=== PATIENT | female | born 1990 | race Caucasian/White ===

== ENCOUNTER → 2020-11-09 13:33 | Outpatient (CLI) | payer BC, SELFPAY ==
[2020-11-09 14:47] LABS: NATERA MAILED SPECIMEN
== END ==
PROVIDERS: PCP Internal Medicine; Visit Provider Obstetrics & Gynecology
DX: Z31.5 Encounter for procreative genetic counseling (principal)
CPT/HCPCS: 36415

== ENCOUNTER 2020-11-09 13:59 | Outpatient (RCR) | payer BC, SELFPAY | END 2021-01-22 23:59 | LOC: IMMUN 13:59 | PROVIDERS: PCP Internal Medicine; Referring Provider Family Medicine; Visit Provider Family Medicine | DX: Z23 Encounter for immunization (principal) | CPT/HCPCS: 0001A; 0002A; 91300 ==

== ENCOUNTER 2023-05-21 11:15 | Inpatient (IN) | payer BC, SELFPAY ==
[2023-05-21] VITALS (33 sets, daily range): BP systolic 96–142; BP diastolic 52–101; PULSE 71–117; TEMP 36.3–37.6; O2SAT 98–100; BMI 30.4
[2023-05-21] MEDS: Lactated Ringers 1,000 ML 50 ML IV (12:05)
[2023-05-21 12:32] LABS: Absolute Lymphocyte Count 2.12 X10^3/uL (0.83-4.51); Absolute Neutrophil Count 7.4 X10^3/uL (2.0-7.7); Basophil# 0.06 X10^3/uL; Basophil% 0.6 % (0-1); Hematocrit 43.2 % (37-47); Hemoglobin 14.3 g/dL (12.0-15.0); Lymphocyte # 2.12 X10^3/ul (0.83-4.51); Lymphocyte % 20.6 % (19-41); Mean Corp Hgb Conc 33.1 g/dL (32-36); Mean Corpuscular Hgb 33.6 pg (27.0-32.0); Mean Corpuscular Volume 101.6 fL (81-99); Monocyte# 0.65 X10^3/uL; Monocyte% 6.3 % (0-10); NRBC Flagged by Analyzer 0 % (0-5); Neutrophil # 7.37 X10^3/uL (2.7-7.7); Neutrophil % 71.4 % (47-70); Platelet Count 156 K/mm3 (150-450); RBC Distribution Width CV 12.7 % (11.6-14.6); RBC Distribution Width SD 47.4 fl (35.1-43.9); Red Blood Count 4.25 M/mm3 (4.2-5.4); White Blood Count 10.3 K/mm3 (4.4-11.0)
[2023-05-21] MEDS: Oxytocin 15 Units/NS 250ml 15 UNITS/250 ML IV.SOLN 2 UNITS IV (13:05)
[2023-05-21 13:08] LABS: Syphilis Antibodies Non-reactive
[2023-05-21 16:37] LABS: AST(SGOT) 17 U/L (15-37); Alanine Aminotransfer ALT/SGPT 18 U/L (13-56); Creatinine, Serum 0.78 mg/dL (0.55-1.02); EST Glomerular Filtration Rate 92 mL/min (>60); Est Glom Filt Rate - Afr Amer 111 mL/min (>60); Estimated Creatinine Clearance 101.62 ml/min; Uric Acid 4.8 mg/dL (2.6-6.0)
[2023-05-21 17:01] LABS: Protein, Urine (Random) 17.5 mg/dL (<11.9); Protein:Creat Ratio 200 mg/g CRE (0-200)
--- NOTE | 2023-05-21 18:00 | HP.PCM.OB_ITS ---
HPI - General General Date of Admission: 05/21/23 Date of Service: 05/21/23 HPI Narrative SHAHRIAR OTERO, is a 33 F who presents for induction. Maternal Data Information Final ANALILIA: 05/[birth year]23 [facility] Medical History Infertility Home Medications ascorbic acid (vitamin C) 500 mg tablet (Vitamin C) 1 g PO DAILY ask provider 05/21/23 [History Last Taken 05/21/23 06:00] vit no.95-ferrous fumarate 28 mg-folic acid 800 mcg tablet () 1 tab PO DAILY 05/21/23 [History Last Taken 05/21/23 06:00] Allergy/AdvReac Type Severity Reaction Status Date / Time No Known Allergies Allergy Verified 05/21/23 12:09 Surgical History History of surgery Social History Smoking Status: Never smoker History Elective abortions Hx Para 0 Spontaneous abortions Hx # Term Pregnancies Ectopic pregnancies Hx # Pregnancies Multiple births # of living children NST FHR Rate Baby A Baseline: 145 Variability:: Moderate Accelerations:: 15 x 15 Decelerations:: None Uterine Activity:: Q2-3 minutes Vital Signs Vital Signs Vital Signs: 05/21/23 11:35 05/21/23 11:35 05/21/23 11:57 Temperature Temperature Source Pulse Rate 95 Blood Pressure 139/101 H 96/52 L BP Systolic 139 96 BP Diastolic 101 52 Pulse Ox 05/21/23 11:57 05/21/23 12:26 05/21/23 12:26 Temperature 97.6 F L Temperature Source Temporal Pulse Rate 76 Blood Pressure BP Systolic BP Diastolic Pulse Ox 05/21/23 13:43 05/21/23 13:44 05/21/23 13:44 Temperature Temperature Source Temporal Pulse Rate 104 H Blood Pressure 135/94 H BP Systolic 135 BP Diastolic 94 Pulse Ox 05/21/23 13:44 05/21/23 13:43 05/21/23 14:28 Temperature 98.9 F Temperature Source Pulse Rate Blood Pressure 129/90 H BP Systolic 129 BP Diastolic 90 Pulse Ox 99 05/21/23 14:28 05/21/23 14:29 05/21/23 14:29 Temperature 97.4 F L Temperature Source Temporal Pulse Rate 94 Blood Pressure BP Systolic BP Diastolic Pulse Ox 05/21/23 15:15 05/21/23 15:15 05/21/23 16:29 Temperature Temperature Source Pulse Rate 78 Blood Pressure 142/95 H 133/91 H BP Systolic 142 133 BP Diastolic 95 91 Pulse Ox 05/21/23 16:29 05/21/23 16:29 05/21/23 16:29 Temperature 99.6 F H Temperature Source Temporal Pulse Rate 86 Blood Pressure BP Systolic BP Diastolic Pulse Ox 05/21/23 17:39 05/21/23 17:39 05/21/23 17:39 Temperature Temperature Source Temporal Pulse Rate 78 Blood Pressure 131/84 H BP Systolic 131 BP Diastolic 84 Pulse Ox 05/21/23 17:39 Temperature 97.3 F L Temperature Source Pulse Rate Blood Pressure BP Systolic BP Diastolic Pulse Ox Weight Weight: 194 lb 9.6 oz Body Mass Index (BMI) 30.4 Physical Exam Const alert, oriented x3 and no apparent distress Chest inspection of chest normal GI soft to palpation, non-tender and non-distended Inspection: gravid external exam normal Narrative: cvx - 4/70/-2, AROM clear fluid Labs Labs Labs: Blood Type A POSITIVE Antibody Screen NEGATIVE Hct 43.2 % (37-47) Hgb 14.3 g/dL (12.0-15.0) Syphilis Total Ab Non-reactive see [facility] H&P Assessment & Plan (1) conceived through in vitro fertilization: QUALIFIERS: Trimester: third trimester Qualified Code(s): O09.813 - Supervision of resulting from assisted reproductive technology, third trimester COMMENT: @ 39 weeks (2) 39 weeks gestation of : PLAN: Plan Admit to L&D Induction - on pitocin & s/p AROM GBS negative EFW - less than 4500g, patient with adequate pelvis Pain - epidural as desired Routine care
[2023-05-21] MEDS: 0.9% Saline Lock 10 ML Syringe IV (18:20)
[2023-05-21] MEDS: LACTATED RINGERS 500 ML 999 ML IV ×2 (19:27→21:42)
[2023-05-21] MEDS: fentaNYL-bupivacaine (epidural) 100 ML BAG EPIDURAL (20:49)
[2023-05-21] MEDS: Lactated Ringers 1,000 ML 200 ML IV (21:42)
[2023-05-21] MEDS: Ondansetron 4 MG/2 ML Vial IV (22:33)
[2023-05-22] VITALS (27 sets, daily range): BP systolic 123–159; BP diastolic 63–104; PULSE 98–155; RESP 16; TEMP 36.3–37.5; O2SAT 97–100
[2023-05-22] MEDS: fentaNYL-bupivacaine (epidural) 100 ML BAG EPIDURAL (00:22)
[2023-05-22] MEDS: proCHLORPERazine 10 MG/2 ML Vial IV (01:06)
[2023-05-22] MEDS: Lactated Ringers 1,000 ML 200 ML IV (03:17)
[2023-05-22] MEDS: Oxytocin 15 Units/NS 250ml 15 UNITS/250 ML IV.SOLN 83 UNITS IV (05:59)
[2023-05-22] MEDS: miSOPROStol 200 MCG Tablet 1000 MCG RC (06:09)
--- NOTE | 2023-05-22 06:32 | EX.PCM.OBRPT ---
Maternal Data Information Final ANALILIA: 05/28/23 Gestational age: 39&1 Vaginal Delivery Maternal Presentation Maternal Presentation: Medically Indicated Induction Type of Induction: Pitocin and Amniotomy Operative Information Date of Procedure: 05/22/23 Pre-Operative Diagnosis: IVF Post-Operative Diagnosis: Same Surgery / Procedure Performed: Spontaneous Vaginal Delivery Type of Anesthesia: Epidural Estimated Blood Loss: 700ml Findings Description of Procedure: Patient prepped & draped when C/C/+2. She pushed well to deliver the head. head gently guided to allow delivery of anterior and posterior shoulders. No excess traction placed on head. Body delivered and 3VC clamped & cut in delayed fashion. Placenta delivered with gentle traction and good uterine tone obtained. Some increased bleeding noted. Uterine cavity manually explored to confirm no retained POC's. Bleeding slowed with increased pitocin rate & cytotec. Vaginal sweep x2 performed to ensure no retained sponges. Presentation: FRAN Amniotic Membrane Rupture Type: Artificial Amniotic Fluid Description: Clear Placental Delivery Description: Expressed Placenta Disposition: [facility] Specimen(s) Removed: Placenta Cord Vessel Description: 3 Vessels Cord Entanglement: Around neck x 1, loose Nuchal Cord Compression: Without compression Infant A Gender: Male (Lamberto) (1 minute): 9 (5 minute): 9 Delayed Cord Clamping: Yes Post Vaginal Delivery Medications Given After Delivery: IV Pitocin and - (Rectal cytotec) Episiotomy Description: None Laceration: 2nd degree (repaired with 3-0 vicryl & 1 stitch of chromic) Complication Complications: None
[2023-05-22] MEDS: Cefazolin 2 GM in 0.9% Normal Saline (100mL Bag) 100 ML IV (07:50)
[2023-05-22] MEDS: Ibuprofen 600 MG Tablet PO ×3 (08:30→20:37)
[2023-05-22] MEDS: 0.9% Saline Lock 10 ML Syringe IV (09:25)
[2023-05-22] MEDS: Acetaminophen 500 MG Tablet 1000 MG PO ×2 (11:09→17:30)
--- NOTE | 2023-05-22 20:59 | NURSING ---
Spoke with Dr Holbrook about pt's blood pressures, states she is okay with current pressures and this RN will continue to monitor throughout the night and to call with any pressures over parameters.
[2023-05-23] MEDS: Acetaminophen 500 MG Tablet 1000 MG PO (00:28)
[2023-05-23 01:36] VITALS: BP 126/89; PULSE 102; RESP 16; TEMP 36.8; O2SAT 98
[2023-05-23] MEDS: DiphenhydrAMINE 25 MG Capsule PO (02:07)
[2023-05-23] MEDS: Ibuprofen 600 MG Tablet PO (05:38)
[2023-05-23 05:39] VITALS: BP 138/97; PULSE 103; RESP 16; TEMP 36.6; O2SAT 98
--- NOTE | 2023-05-23 07:41 | NURSING ---
[address] Holbrook, informed md of pt's struggling with anxiety throughout the night. Pt states she is having trouble sleeping and wakes up shaking from feeling anxious and overwhelmed. Pt states she feels like she wants to be more in control but knows she can't always be in motherhood. Pt states she has had anxiety before but has never been on meds but is open to starting something. Pt going to try an take a hot shower to try and relax. Md states pt may have Benadryl to help her sleep and md will round on her in the morning to discuss any anxiety treatment.
[2023-05-23 08:00] VITALS: BP 139/102; BP 148/95; PULSE 97; RESP 16; TEMP 36.7; O2SAT 98
--- NOTE | 2023-05-23 10:19 | PN.OBGYN_ITS ---
Subjective Subjective The patient is doing well. She denies headache or vision changes. She is ambulating and voiding without difficulty. She is tolerating regular diet. She is breast-feeding without complaints. Lochia is normal. She is having some cramping that is mild. She feels anxious and overwhelmed. She states she typically likes to have control over situations, and she does not feel she has control at this time leading to anxiety. She feels that sleep deprivation is worsening her anxiety as well. No underlying history of depression or anxiety that she knows of. She has never been on medication before. She does not see a counselor. No suicidal or homicidal ideations. She is questioning if she should start medication for her anxiety. Objective Data Objective Data Vital Signs: Vital Signs Temp Pulse Resp BP Pulse Ox O2 Del Method 98.0 F 97 16 148/95 H 98 Room Air 05/23/23 08:00 05/23/23 08:00 05/23/23 08:00 05/23/23 08:00 05/23/23 08:00 05/23/23 08:00 Oxygen Delivery Method Room Air Weight: 194 lb 9.6 oz Body Mass Index (BMI) 30.4 Intake & Output: Intake and Output for Last 24 Hours 05/21/23 05/22/23 05/23/23 23:59 23:59 23:59 Intake Total 1898.54 / 1898.54 2006.46 / 2006.46 Output Total 1350 / 1350 Balance 1898.54 / 1898.54 656.46 / 656.46 Lab / Micro Data 05/21/23 12:05 05/21/23 16:00 Physical Exam Const alert and no apparent distress Constitutional Narrative: at this time General Appearance: comfortable HEENT normocephalic Assessment & Plan (1) Vaginal delivery: PLAN: Pt is day 1 from a vaginal delivery. Patient and are doing well. She is breast-feeding. Discussed anxiety and depression at length with patient and her . Recommend that she establish with a counselor or seek psych services. A [facility] in [place] message was sent to the patient through [employer] with a list of counseling and psychiatry services in the area, and recommended that she call on Thursday to get a appointment within 1-2 weeks if possible. She will also need an early visit. Discussed risk, benefits, alternatives to starting an SSRI such as Zoloft with the patient. She will consider this and let me know if she would like to start medication. She overall feels like her anxiety is somewhat improved today as compared to last night. (2) Elevated blood pressure reading: PLAN: Preeclampsia labs were normal at admission. Patient denies any symptoms of preeclampsia. She feels her blood pressure is elevated due to her anxious state. Blood pressures have been normal to mild range. Discussed we may need to start labetalol twice daily if blood pressures are persistently in the 140s to 150s. The patient does have a blood pressure cuff at home so she can continue blood pressure monitoring at home. She will also need a blood pressure check this week.
[2023-05-23 12:00] VITALS: BP 142/107; PULSE 112; RESP 16; TEMP 36.7; O2SAT 98
--- NOTE | 2023-05-23 12:33 | CASEMGMT ---
Social Work Assessment Labor and Delivery [place] Date/Time of Referral: 05/23/23, 7:40am Referred by: Verona Holbrook Date/Time of Intervention: 05/23/23, 12:15pm Reason for referral: Struggling w/anxiety History obtained from: MOB, FOB, chart Household composition: MOB, FOB, and now baby Lamberto Barber. MOB and FOB have been together 16 years, 8 years Patient's parent/guardian status: Both parents have guardianship of this baby Medical history: MOB-- through in vitro fertilization. Baby--Born 05/22/23, 5:36am, Apgars 9 and 9. Wt 3305 grams Educational Status: MOB has bachelor's degree, FOB has master's degree Financial Status: No financial concerns. 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 FOMarian works as a planter w/[employer]. Both plan to return to work supplies: They have all needed supplies including diapers, wipes, clothing, car seat, bassinet, crib, clothing. MOB is breast feeding. Childcare/Caregivers: FOB's dad and MOB's dad will both help, they also plan to use day care. Transportation: They have two cars Programs/Agencies/Children's Services/Legal Issues: None Behavioral Health: Substance abuse--no history for MOB or FOB. Mental Health--no history for FOB. LATOSHA states has anxiety, has never been formally diagnosed, has never been in therapy or on medications. She explains was anxious yesterday, was a long labor, breast feeding was difficult. LATOSHA states things are going much better now and she is feeling a lot better. We spoke about anxiety, and if the anxiety worsens, encouraged her to reach out to her physician, also gave her counseling resources. MOB spoke about going through in vitro, and how this also added to anxiety. SW offered support. Family/Social Stressors: None Support Systems: MOB's parents, FOB's parents(they live next door) Depression and anxiety/Shaken Baby/Safe Sleeping/Help Me Grow/Mental Health Resources/[facility] Resources: SW gave MOB resources on all of these topics and reviewed them, in particular PPD and anxiety, and warning signs. Assessment: MOB and FOB both appropriate, answered all questions completely. MOB holding baby and . No concerns at this time. Parents both seem excited to be parents and very appropriate in their responses and care of child. Plan: Baby to go home w/parents at discharge. No further social service needs anticipated at this time. DEANDRA Yanes
[2023-05-23] MEDS: Labetalol 100 MG Tablet PO ×2 (14:06→17:30)
[2023-05-23 14:34] LABS: Hematocrit 26.9 % (37-47); Mean Corp Hgb Conc 33.5 g/dL (32-36); Mean Corpuscular Hgb 34.4 pg (27.0-32.0); Mean Corpuscular Volume 102.7 fL (81-99); Mean Platelet Vol. 10.4 fl (6.2-12.0); Platelet Count 147 K/mm3 (150-450); RBC Distribution Width CV 13.1 % (11.6-14.6); RBC Distribution Width SD 49.4 fl (35.1-43.9); Red Blood Count 2.62 M/mm3 (4.2-5.4); White Blood Count 14.9 K/mm3 (4.4-11.0)
[2023-05-23 14:51] LABS: ALB/GLOB Ratio 0.7 RATIO (0.9-2.4); AST(SGOT) 39 U/L (15-37); Alanine Aminotransfer ALT/SGPT 19 U/L (13-56); Albumin, Serum 2.2 g/dL (3.2-5.0); Alkaline Phosphatase 126 U/L (45-117); Anion Gap 3 (5-15); BUN 9 mg/dL (7-18); BUN/Creat Ratio 11.9 RATIO (10-20); Calcium,Total 8.5 mg/dL (8.5-10.1); Chloride 110 mmol/L (98-107); Creatinine, Serum 0.75 mg/dL (0.55-1.02); EST Glomerular Filtration Rate 95 mL/min (>60); Est Glom Filt Rate - Afr Amer 115 mL/min (>60); Estimated Creatinine Clearance 105.69 ml/min; Globulin 3.3 g/dL (2.2-4.2); Glucose 88 mg/dL (74-106); Potassium 3.9 mmol/L (3.5-5.1); Protein, Total 5.5 g/dL (6.4-8.2); Sodium Level 141 mmol/L (136-145)
[2023-05-23 17:32] VITALS: BP 140/101; BP 146/101; PULSE 100; RESP 16; TEMP 36.8; O2SAT 98
[2023-05-23 19:48] VITALS: BP 139/102; PULSE 107; RESP 18; TEMP 37.1
[2023-05-23 19:51] LABS: Hematocrit 26.1 % (37-47); Hemoglobin 8.7 g/dL (12.0-15.0); Mean Corp Hgb Conc 33.3 g/dL (32-36); Mean Corpuscular Hgb 34.1 pg (27.0-32.0); Mean Corpuscular Volume 102.4 fL (81-99); Mean Platelet Vol. 10.4 fl (6.2-12.0); Platelet Count 148 K/mm3 (150-450); RBC Distribution Width CV 13.1 % (11.6-14.6); Red Blood Count 2.55 M/mm3 (4.2-5.4); White Blood Count 13.1 K/mm3 (4.4-11.0)
[2023-05-23 20:06] LABS: ALB/GLOB Ratio 0.7 RATIO (0.9-2.4); AST(SGOT) 36 U/L (15-37); Alanine Aminotransfer ALT/SGPT 19 U/L (13-56); Albumin, Serum 2.1 g/dL (3.2-5.0); Alkaline Phosphatase 120 U/L (45-117); Anion Gap 4 (5-15); BUN 10 mg/dL (7-18); BUN/Creat Ratio 13.9 RATIO (10-20); Calcium,Total 8.1 mg/dL (8.5-10.1); Chloride 109 mmol/L (98-107); Creatinine, Serum 0.72 mg/dL (0.55-1.02); EST Glomerular Filtration Rate 100 mL/min (>60); Est Glom Filt Rate - Afr Amer 121 mL/min (>60); Estimated Creatinine Clearance 110.09 ml/min; Globulin 3.2 g/dL (2.2-4.2); Glucose 113 mg/dL (74-106); Potassium 3.7 mmol/L (3.5-5.1); Protein, Total 5.3 g/dL (6.4-8.2); Sodium Level 140 mmol/L (136-145)
[2023-05-23] MEDS: Labetalol 200 MG Tablet PO (21:59)
--- NOTE | 2023-05-23 22:38 | NURSING ---
late entry due to pt care pt and fob voiced many questions in regards to elevated blood pressures/lab work/ and plan of care and asked to speak to [id number] called in and spoke to pt and FOB at length about her blood pressures/labs/labetalol orders and current plan of care to repeat lab work in the morning. all of pts and fobs questions were answered by provider
[2023-05-24] VITALS: BP 135/95; PULSE 104; RESP 16; TEMP 37
[2023-05-24 04:16] VITALS: BP 139/102; PULSE 107; RESP 16; TEMP 36.8; O2SAT 97
[2023-05-24] MEDS: Ibuprofen 600 MG Tablet PO (04:18)
[2023-05-24 06:07] LABS: Absolute Lymphocyte Count 2.66 X10^3/uL (0.83-4.51); Absolute Neutrophil Count 8.2 X10^3/uL (2.0-7.7); Basophil# 0.04 X10^3/uL; Basophil% 0.3 % (0-1); Eosinophil# 0.01 X10^3/uL; Eosinophils% 0.1 % (0-5); Hematocrit 26.5 % (37-47); Hemoglobin 8.8 g/dL (12.0-15.0); Lymphocyte # 2.66 X10^3/ul (0.83-4.51); Lymphocyte % 22.7 % (19-41); Mean Corp Hgb Conc 33.2 g/dL (32-36); Mean Corpuscular Hgb 34.5 pg (27.0-32.0); Mean Corpuscular Volume 103.9 fL (81-99); Mean Platelet Vol. 10.3 fl (6.2-12.0); Monocyte# 0.62 X10^3/uL; Monocyte% 5.3 % (0-10); NRBC Flagged by Analyzer 0 % (0-5); Neutrophil # 8.24 X10^3/uL (2.7-7.7); Neutrophil % 70.5 % (47-70); Platelet Count 143 K/mm3 (150-450); RBC Distribution Width CV 13.2 % (11.6-14.6); RBC Distribution Width SD 50.2 fl (35.1-43.9); Red Blood Count 2.55 M/mm3 (4.2-5.4); White Blood Count 11.7 K/mm3 (4.4-11.0)
[2023-05-24 07:31] LABS: ALB/GLOB Ratio 0.7 RATIO (0.9-2.4); AST(SGOT) 34 U/L (15-37); Alanine Aminotransfer ALT/SGPT 18 U/L (13-56); Albumin, Serum 2.2 g/dL (3.2-5.0); Alkaline Phosphatase 118 U/L (45-117); Anion Gap 3 (5-15); BUN 9 mg/dL (7-18); BUN/Creat Ratio 13.8 RATIO (10-20); Chloride 108 mmol/L (98-107); Creatinine, Serum 0.65 mg/dL (0.55-1.02); EST Glomerular Filtration Rate 112 mL/min (>60); Est Glom Filt Rate - Afr Amer 136 mL/min (>60); Estimated Creatinine Clearance 121.95 ml/min; Globulin 3.1 g/dL (2.2-4.2); Glucose 76 mg/dL (74-106); Potassium 3.8 mmol/L (3.5-5.1); Protein, Total 5.3 g/dL (6.4-8.2); Sodium Level 140 mmol/L (136-145)
[2023-05-24 08:00] VITALS: BP 134/97; PULSE 99; RESP 14; TEMP 36.6; O2SAT 98
--- NOTE | 2023-05-24 09:52 | DCINST_ITS ---
Discharge Instructions Diet Discharge Diet: No restrictions Activity Discharge Activity: May Shower May resume sexual activity in: 6 weeks (nothing in vagina and no soaking in water) Ice area for (Minutes): 15 Weight Bearing Status: Weight bearing as tolerated Lifting Restrictions: nothing heavier than baby Additional Activity Instructions:: Check your blood pressure before taking the Labetalol and 1 hour after. Do not take the Labetalol if your blood pressure is 120/80 or under, and call the office. If you have a blood pressure of 160/110 or higher call. Bring your blood pressure log to the office. Dressing / Incision Call your doctor if you observe: Fever of 101 or Higher, Coldness, Increased Pain, Numbness or Tingling, Change in Color, Inability to urinate, Inability to have a bowel movement, Using more than 1 pad per hour, Shortness of breath, Dizziness, Fainting spells, Swelling in the ankles, Chest pain, Increased palpitations (irregular heartbeat), Calf discomfort, Uncontrolled pain and - (Headache that does not improve with Tylenol. Vision changes, upper abdominal pain, nausea, vomiting, generally feeling ill.) Cleanse incision/area with: Soap & Water Follow Up Care Please Follow Up With: Trevor Montoya MD When: 1 week for blood pressure check 6 weeks for visit Test Results: Test results from this visit will be discussed in further detail at your follow- up appointment, if applicable. Discharge Plan Admission Admit Date/Time: 05/21/23 11:15 Primary Reason for Your Visit: delivery Attending Provider: Trevor Montoya Primary Care Provider: Theresa Ayon Instructions Patient Instructions: After a Vaginal , Gestational Hypertension Discharge Orders/Prescriptions Prescriptions: New ferrous sulfate 325 mg (65 mg iron) tablet,delayed release (DR/EC) 325 mg PO QODAY Qty: 30 0RF labetalol 200 mg tablet 200 mg PO BID Qty: 60 0RF Continued PNV cmb#95-ferrous fumarate-FA [] 28 mg iron- 800 mcg tablet 1 tab PO DAILY ascorbic acid (vitamin C) [Vitamin C] 500 mg tablet 1 g PO DAILY Referrals / Follow Up: Theresa Ayon MD [Primary Care Provider] - Disposition Disposition (needs filled in before D/C Order can be placed): Home, Self Care
--- NOTE | 2023-05-24 09:55 | PCM.PN.OB ---
Subjective Subjective Patient is doing well today and offers no complaints. She denies any headache or vision changes. No upper abdominal pain, nausea, vomiting. She is ambulating and voiding without difficulty. She is tolerating regular diet without nausea or vomiting. Lochia is normal. She is breast-feeding without complaints. She desires discharge today. She feels her anxiety has improved. She has no lightheadedness or dizziness. Objective Data Objective Data Vital Signs: Vital Signs Temp Pulse Resp BP Pulse Ox O2 Del Method 97.9 F 99 14 134/97 H 98 Room Air 05/24/23 08:00 05/24/23 08:00 05/24/23 08:00 05/24/23 08:00 05/24/23 08:00 05/24/23 08:00 Oxygen Delivery Method Room Air Weight: 194 lb 9.6 oz Body Mass Index (BMI) 30.4 Intake & Output: Intake and Output for Last 24 Hours 05/22/23 05/23/23 05/24/23 23:59 23:59 23:59 Intake Total 2005.46 / 2005.46 Output Total 1350 / 1350 Balance 656.46 / 656.46 Lab / Micro Data 05/24/23 05:25 05/24/23 05:25 Labs: Laboratory Results - last 24 hr 05/23/23 14:20: WBC 14.9 H, RBC 2.62 L, Hgb 9.0 L, Hct 26.9 L, MCV 102.7 H, MCH 34.4 H, MCHC 33.5, RDW Std Deviation 49.4 H, RDW Coeff of Geremias 13.1, Plt Count 147 L, MPV 10.4, Sodium 141, Potassium 3.9, Chloride 110 H, Carbon Dioxide 28.0, Anion Gap 3 L, BUN 9, Creatinine 0.75, Estim Creat Clear Calc 105.69, Est GFR (MDRD) Af Amer 115, Est GFR (MDRD) Non-Af 95, BUN/Creatinine Ratio 11.9, Glucose 88, Calcium 8.5, Total Bilirubin 0.20, AST 39 H, ALT 19, Alkaline Phosphatase 126 H, Total Protein 5.5 L, Albumin 2.2 L, Globulin 3.3, Albumin/Globulin Ratio 0.7 L 05/23/23 19:40: WBC 13.1 H, RBC 2.55 L, Hgb 8.7 L, Hct 26.1 L, MCV 102.4 H, MCH 34.1 H, MCHC 33.3, RDW Std Deviation 49.0 H, RDW Coeff of Geremias 13.1, Plt Count 148 L, MPV 10.4, Sodium 140, Potassium 3.7, Chloride 109 H, Carbon Dioxide 27.0, Anion Gap 4 L, BUN 10, Creatinine 0.72, Estim Creat Clear Calc 110.09, Est GFR (MDRD) Af Amer 121, Est GFR (MDRD) Non-Af 100, BUN/Creatinine Ratio 13.9, Glucose 113 H, Calcium 8.1 L, Total Bilirubin 0.20, AST 36, ALT 19, Alkaline Phosphatase 120 H, Total Protein 5.3 L, Albumin 2.1 L, Globulin 3.2, Albumin/Globulin Ratio 0.7 L 05/24/23 05:25: WBC 11.7 H, RBC 2.55 L, Hgb 8.8 L, Hct 26.5 L, MCV 103.9 H, MCH 34.5 H, MCHC 33.2, RDW Std Deviation 50.2 H, RDW Coeff of Geremias 13.2, Plt Count 143 L, MPV 10.3, Immature Gran % (Auto) 1.100 H, Neut % (Auto) 70.5 H, Lymph % (Auto) 22.7, [place] % (Auto) 5.3, Eos % (Auto) 0.1, Baso % (Auto) 0.3, Absolute Neuts (auto) 8.2 H, Absolute Lymphs (auto) 2.66, Nucleated RBC % 0, Sodium 140, Potassium 3.8, Chloride 108 H, Carbon Dioxide 29.0, Anion Gap 3 L, BUN 9, Creatinine 0.65, Estim Creat Clear Calc 121.95, Est GFR (MDRD) Af Amer 136, Est GFR (MDRD) Non-Af 112, BUN/Creatinine Ratio 13.8, Glucose 76, Calcium 8.0 L, Total Bilirubin 0.20, AST 34, ALT 18, Alkaline Phosphatase 118 H, Total Protein 5.3 L, Albumin 2.2 L, Globulin 3.1, Albumin/Globulin Ratio 0.7 L Physical Exam Const alert and no apparent distress General Appearance: comfortable HEENT normocephalic Resp normal respiratory effort GI soft to palpation, non-tender and non-distended Extremity normal to inspection Extremity Narrative: Patellar reflexes 2+ bilaterally and no clonus Assessment & Plan (1) Vaginal delivery: PLAN: PPD#2 s/p . Patient and are doing well. She desires discharge today. Discharge instructions reviewed. (2) Elevated blood pressure reading: PLAN: BP controlled on Labetalol 200 mg BID. LFT's have normalized. Plt's are stable and above 100. She has no pre e symptoms this morning. No hyper reflexia or clonus. Likely gHTN once in labor and pre e workup on admission was negative. Instructed her to check BP at home and reviewed reasons to call. She is to follow up this week in the office for BP check. (3) Acute blood loss anemia: PLAN: Hgb stable and no symptoms of anemia. Start oral iron.
--- NOTE | 2023-05-24 09:59 | DS.PCM_ITS ---
Providers Date of Admission: 05/21/23 Date of Discharge: 05/24/23 Primary Care Physician: Dr. Theresa Ayon MD Reason For Visit: VAG Diagnosis Discharge Diagnosis (1) Vaginal delivery: Status: Acute Code(s): O80 - Encounter for full-term uncomplicated delivery Plan: PPD#2 s/p . Patient and are doing well. She desires discharge today. Discharge instructions reviewed. (2) Elevated blood pressure reading: Status: Acute Code(s): R03.0 - Elevated blood-pressure reading, without diagnosis of hypertension Plan: BP controlled on Labetalol 200 mg BID. LFT's have normalized. Plt's are stable and above 100. She has no pre e symptoms this morning. No hyper reflexia or clonus. Likely gHTN once in labor and pre e workup on admission was negative. Instructed her to check BP at home and reviewed reasons to call. She is to follow up this week in the office for BP check. (3) Acute blood loss anemia: Status: Acute Code(s): D62 - Acute posthemorrhagic anemia Plan: Hgb stable and no symptoms of anemia. Start oral iron. Medications at Discharge Home Medications ascorbic acid (vitamin C) 500 mg tablet (Vitamin C) 1 g PO DAILY ask provider 05/21/23 vit no.95-ferrous fumarate 28 mg-folic acid 800 mcg tablet () 1 tab PO DAILY 05/21/23 ferrous sulfate 325 mg (65 mg iron) tablet,delayed release 325 mg PO QODAY #30 tabs 05/24/23 labetalol 200 mg tablet 200 mg PO BID #60 tabs 05/24/23 Hospital Course Procedures - (vaginal delivery) Summary of Care Provided Hospital Course: Presented to labor and delivery for an induction of labor. Blood pressures were mildly elevated and preeclampsia work-up was negative on admission. Gestational hypertension diagnosed. She had a vaginal delivery on 05/22/23, see operative report for details. Did well and was started on labetalol 200 mg twice daily. She continued to have no preeclampsia symptoms , and pre-e work-up was not concerning for preeclampsia. She was discharged home on day 2 on blood pressure medication and iron for acute blood loss anemia. She was instructed to follow-up in the office this week for blood pressure check. Weight / BMI Weight Weight: 194 lb 9.6 oz Body Mass Index (BMI) 30.4 ABG / Lab / Microbiology Data 05/24/23 05:25 05/24/23 05:25 Laboratory: Laboratory Results - last 24 hr 05/23/23 14:20: WBC 14.9 H, RBC 2.62 L, Hgb 9.0 L, Hct 26.9 L, MCV 102.7 H, MCH 34.4 H, MCHC 33.5, RDW Std Deviation 49.4 H, RDW Coeff of Geremias 13.1, Plt Count 147 L, MPV 10.4, Sodium 141, Potassium 3.9, Chloride 110 H, Carbon Dioxide 28.0, Anion Gap 3 L, BUN 9, Creatinine 0.75, Estim Creat Clear Calc 105.69, Est GFR (MDRD) Af Amer 115, Est GFR (MDRD) Non-Af 95, BUN/Creatinine Ratio 11.9, Glucose 88, Calcium 8.5, Total Bilirubin 0.20, AST 39 H, ALT 19, Alkaline Phosphatase 126 H, Total Protein 5.5 L, Albumin 2.2 L, Globulin 3.3, Albumin/Globulin Ratio 0.7 L 05/23/23 19:40: WBC 13.1 H, RBC 2.55 L, Hgb 8.7 L, Hct 26.1 L, MCV 102.4 H, MCH 34.1 H, MCHC 33.3, RDW Std Deviation 49.0 H, RDW Coeff of Geremias 13.1, Plt Count 148 L, MPV 10.4, Sodium 140, Potassium 3.7, Chloride 109 H, Carbon Dioxide 27.0, Anion Gap 4 L, BUN 10, Creatinine 0.72, Estim Creat Clear Calc 110.09, Est GFR (MDRD) Af Amer 121, Est GFR (MDRD) Non-Af 100, BUN/Creatinine Ratio 13.9, Glucose 113 H, Calcium 8.1 L, Total Bilirubin 0.20, AST 36, ALT 19, Alkaline Jackeline sphatase 120 H, Total Protein 5.3 L, Albumin 2.1 L, Globulin 3.2, Albumin/Globulin Ratio 0.7 L 05/24/23 05:25: WBC 11.7 H, RBC 2.55 L, Hgb 8.8 L, Hct 26.5 L, MCV 103.9 H, MCH 34.5 H, MCHC 33.2, RDW Std Deviation 50.2 H, RDW Coeff of Geremias 13.2, Plt Count 143 L, MPV 10.3, Immature Gran % (Auto) 1.100 H, Neut % (Auto) 70.5 H, Lymph % (Auto) 22.7, [place]al[place] % (Auto) 5.3, Eos % (Auto) 0.1, Baso % (Auto) 0.3, Absolute Neuts (auto) 8.2 H, Absolute Lymphs (auto) 2.66, Nucleated RBC % 0, Sodium 140, Potassium 3.8, Chloride 108 H, Carbon Dioxide 29.0, Anion Gap 3 L, BUN 9, Creatinine 0.65, Estim Creat Clear Calc 121.95, Est GFR (MDRD) Af Amer 136, Est GFR (MDRD) Non-Af 112, BUN/Creatinine Ratio 13.8, Glucose 76, Calcium 8.0 L, Total Bilirubin 0.20, AST 34, ALT 18, Alkaline Phosphatase 118 H, Total Protein 5.3 L, Albumin 2.2 L, Globulin 3.1, Albumin/Globulin Ratio 0.7 L D/C Instructions Discharge Diet: No restrictions May resume sexual activity in: 6 weeks (nothing in vagina and no soaking in wate r) Ice area for (Minutes): 15 Weight Bearing Status: Weight bearing as tolerated Additional Activity Instructions: Check your blood pressure before taking the Labetalol and 1 hour after. Do not take the Labetalol if your blood pressure is 120/80 or under, and call the office. If you have a blood pressure of 160/110 or higher call. Bring your blood pressure log to the office. Call your doctor if you observe: Fever of 101 or Higher, Coldness, Increased Pain, Numbness or Tingling, Change in Color, Inability to urinate, Inability to have a bowel movement, Using more than 1 pad per hour, Shortness of breath, Dizziness, Fainting spells, Swelling in the ankles, Chest pain, Increased palpitations (irregular heartbeat), Calf discomfort, Uncontrolled pain and - (Headache that does not improve with Tylenol. Vision changes, upper abdominal pain, nausea, vomiting, generally feeling ill.) Cleanse incision/area with: Soap & Water Please Follow Up With: Trevor Montoya MD When: 1 week for blood pressure check 6 weeks for visit Meaningful Use Info Meaningful Use Diagnoses (Choose all that apply): None applicable Discharge Plan Admission Admit Date/Time: 05/21/23 11:15 Primary Reason for Your Visit: delivery Attending Provider: Trevor Montoya Primary Care Provider: Theresa Ayon Instructions Patient Instructions: After a Vaginal , Gestational Hypertension Discharge Orders/Prescriptions Prescriptions: New ferrous sulfate 325 mg (65 mg iron) tablet,delayed release (DR/EC) 325 mg PO QODAY Qty: 30 0RF labetalol 200 mg tablet 200 mg PO BID Qty: 60 0RF Continued PNV cmb#95-ferrous fumarate-FA [] 28 mg iron- 800 mcg tablet 1 tab PO DAILY ascorbic acid (vitamin C) [Vitamin C] 500 mg tablet 1 g PO DAILY Referrals / Follow Up: Theresa Ayon MD [Primary Care Provider] - Disposition Disposition (needs filled in before D/C Order can be placed): Home, Self Care
[2023-05-24] MEDS: Labetalol 200 MG Tablet PO (10:24)
[2023-05-24 11:26] VITALS: BP 125/87
== END 2023-05-24 12:22 | disposition home or self-care (01) | DRG 806 ==
PROVIDERS: Obstetrics & Gynecology; Admitting Provider Obstetrics & Gynecology; PCP Internal Medicine; Visit Provider Obstetrics & Gynecology
DX: O13.4 Gestational [pregnancy-induced] hypertension without significant proteinuria, complicating childbirth (principal); Z37.0 Single live birth; D62 Acute posthemorrhagic anemia; F41.8 Other specified anxiety disorders; O70.1 Second degree perineal laceration during delivery; O99.345 Other mental disorders complicating the puerperium; O90.81 Anemia of the puerperium; Z3A.39 39 weeks gestation of pregnancy
CPT/HCPCS: 59025; 59050; 80053; 82565; 82570; 84156; 84450; 84460; 84550; 85025; 85027; 86780; 86850; 86900; 86901; 99221; J7120; A4216; G0378; J2405

== ENCOUNTER 2025-05-16 13:05 | Inpatient (IN) | payer BC, SELFPAY ==
[2025-05-16] VITALS (48 sets, daily range): BP systolic 69–162; BP diastolic 42–113; PULSE 85–131; RESP 14–16; TEMP 37–37.2; O2SAT 93–99; BMI 30.6
--- OUTSIDE RECORDS SUMMARY | 2025-05-16 08:54 | XMS RPT_ITS ---
Author Name Auto Generated Organization OHIP Care Team Providers Care Solution Consultant Name Role Phone GRICEL MILLER Attending Unavailable HAURY, AUNDREA Referring Unavailable GANTA, ISA Primary Care Unavailable HAURY, AUNDREA Referring Unavailable GANTA, ISA Primary Care Unavailable GANTA, ISA Primary Care Unavailable JULIUS HARRIS Attending Unavailable GANTA, ISA Primary Care Unavailable BETH QUARLES Attending Unavailable GANTA, ISA Primary Care Unavailable HAURY, AUNDREA Attending Unavailable GANTA, ISA Primary Care Unavailable HAURY, AUNDREA Referring Unavailable GANTA, ISA Primary Care Unavailable CARLOS BAZZI Attending Unavailable GANTA, ISA Primary Care Unavailable CASIANO, BALAJI Referring Unavailable GANTA, ISA Primary Care Unavailable CASIANO, BALAJI Referring Unavailable CASIANO BALAJI Attending Unavailable GANTA, ISA Primary Care Unavailable CARLOS BAZZI Attending Unavailable GANTA, ISA Primary Care Unavailable GANTA, ISA Primary Care Unavailable HAURY, AUNDREA Attending Unavailable GANTA, ISA Primary Care Unavailable CASIANO BALAJI Referring Unavailable GANTA, ISA Primary Care Unavailable CARLOS BAZZI Attending Unavailable GANTA, ISA Primary Care Unavailable GANTA, ISA Primary Care Unavailable GANTA, ISA Primary Care Unavailable HAURY, AUNDREA Referring Unavailable GANTA, ISA Primary Care Unavailable HAURY, AUNDREA Referring Unavailable GANTA, ISA Primary Care Unavailable HAURY, AUNDREA Referring Unavailable CARLOS BAZZI Attending Unavailable HAURY AUNDREA Attending Unavailable GANTA, ISA Primary Care Unavailable GANTA, ISA Primary Care Unavailable CASIANO, BALAJI Referring Unavailable DAIJAYHARLISETH BIRD Attending Unavail able GANTA, ISA Primary Care Unavailable HAURY, AUNDREA Referring Unavailable JENNIFER BALAJI Attending Unavailable GANTA, ISA Primary Care Unavailable SUSAN MARTELL Attending Unavailable GANTA, ISA Primary Care Unavailable NEYHART MONTEZ, LISETH Attending Unavail able PROBLEMS DATE TYPE CONDITION / CODE ATTENDING STATUS [facility] 05/16/2025 Active 37 weeks gestati on of (HCC) / Z3A.37(ICD-10) CARLOS BAZZI Active [facility] 05/08/2025 Active Excessive growth affecting management of in third trimester, single or unspecified fetus (HCC) / O36.63X0(ICD-10) CARLOS BAZZI Active [facility] 05/03/2025 Active Polyhydramnios i n third trimester complication, single or unspecified fetus (HCC) / O40.3XX0(ICD-10) CARLOS BAZZI Active [facility] 05/09/2025 Active 36 weeks gestati on of (HCC) / Z3A.36(ICD-10) CARLOS BAZZI Active [facility] 01/31/2025 Active result ing from assisted reproductive technology, antepartum (HCC) / O09.819(ICD-10) NA Active [facility] 05/03/2025 Active Obesity affectin g in third trimester, unspecified obesity type (HCC) / O99.213(ICD-10) NA Active [facility] 03/20/2025 Active Supervision of h igh risk in third trimester (HCC) / O09.93(ICD-10) CARLOS BAZZI Active [facility] 04/18/2025 Active 33 weeks gestati on of (HCC) / Z3A.33(ICD-10) CARLOS BAZZI Active [facility] 04/18/2025 Active Need for influen za vaccination / Z23(ICD-10) CARLOS BAZZI Active [facility] 04/03/2025 Active 31 weeks gestati on of (HCC) / Z3A.31(ICD-10) BALAJI CASIANO Active [facility] 03/20/2025 Active 29 weeks gestati on of (HCC) / Z3A.29(ICD-10) AUNDREA PARKS Active [facility] 03/06/2025 Active Supervision of h igh risk in second trimester (HCC) / O09.92(ICD-10) NA Active [facility] 03/06/2025 Active 23 weeks gestati on of (HCC) / Z3A.23(ICD-10) NA Active [facility] 03/06/2025 Active Need for vaccina tion / Z23(ICD-10) LISETH VASQUEZ Active [facility] 03/06/2025 Active 27 weeks gestati on of (HCC) / Z3A.27(ICD-10) LISETH VASQUEZ Active [facility] 01/31/2025 Active abnormalit y affecting management of mother, single or unspecified fetus (HCC) / O35.9XX0(ICD-10) GRICEL MILLER Active [facility] 01/31/2025 Active 17 weeks gestati on of (HCC) / Z3A.17(ICD-10) NA Active [facility] 01/10/2025 Active Encounter for fe dell anatomic survey (HCC) / Z36.89(ICD-10) NA Active [facility] 01/10/2025 Active 19 weeks gestati on of (HCC) / Z3A.19(ICD-10) NA Active [facility] 01/10/2025 Active result ing from in vitro fertilization in second trimester (HCC) / O09.812(ICD-10) NA Active [facility] 10/20/2024 Active Encounter for supervision of high risk in first trimester, antepartum (HCC) / O09.91(ICD-10) NA Active [facility] 11/18/2024 Active 9 weeks gestatio n of (HCC) / Z3A.09(ICD-10) NA Active [facility] 10/20/2024 Active Encounter for supervision of high risk in first trimester, antepartum / O09.91(ICD-10) NA Active [facility] 10/20/2024 Active History of gesta tional hypertension / Z87.59(ICD-10) NA Active [facility] 10/20/2024 Active result ing from assisted reproductive technology, antepartum / O09.819(ICD-10) NA Active [facility] 10/20/2024 Active 9 weeks gestatio n of / Z3A.09(ICD-10) AUNDREA PARKS Active [facility] 10/20/2024 Active with u ncertain dates in first trimester / Z34.91(ICD-10) AUNDREA PARKS Active [facility] PROCEDURES No Procedure Records Found RESULTS PROGRESS Observed: 05/17/2025 8:45 AM Status: COMPLETED Source: [facility] HNO ID: [id number] Author: PREETHI PENALOZA RN Service: ? Author Type: Registered Nurse Type: Progress Notes Filed: 05/17/2025 08:47 Note Text: Patient delivered via by Dr. Bazzi on 05/17/25 at [facility]. See OB history. Preethi Penaloza RN PROGRESS Observed: 05/09/2025 12:33 PM Status: COMPLETED Source: [facility] HNO ID: [id number] Author: CARLOS BAZZI MD Service: ? Author Type: Physician Type: Progress Notes Filed: 05/09/2025 12:35 Note Text: NST SUMMARY PROVIDER ASSESSMENT AND INTERPRETATION Rubio Castle is a 35 year old female, , who is at 36w6d with an ANALILIA of 05/31/2025, by Last Menstrual Period dating method. Indications for NST: IVF Prenancy Baseline: 150 Variability: Moderate Accelerations: Present 15 X 15 Decelerations: None Contractions: TOCO: None Interpretation: Reactive SIGNATURE: Carlos Bazzi MD PROGRESS Observed: 05/03/2025 11:17 AM Status: COMPLETED Source: [facility] HNO ID: [id number] Author: LISETH VASQUEZ MD Service: ? Author Type: Physician Type: Progress Notes Filed: 05/03/2025 11:21 Note Text: DM-Pt doing well. Denies vaginal Bleeding, Leaking fluid, or regular Contractions. Pt reports good movement Physical Exam: Gen: female in no apparent distress Abd: soft, Gravid. Non tender to palpation. See flow sheet Participation of a fellow, resident, medical student, or advanced practice provider student in performing the sensitive examination was discussed with the patient or authorized union representative. The patient or authorized union representative has agreed to proceed with the sensitive examination. @ 36 weeks Assessment AND Plan Supervision of high risk in third trimester (HCC) Orders: URINE OB DIP B/O ROUTINE, GROUP B STREPTOCOCCUS BY PCR Excessive growth affecting management of in third trimester, single or unspecified fetus (HCC) Reviewed Growth - discussed delivery options with patient. If >5000g would recommend primary cs. Pt will will consider all options but knows she either wants IOL at 39 weeks or possibly CS if EFW >5000g. Reviewed membrane sweeping at 37 weeks if desired. Orders: URINE OB DIP B/O ROUTINE, GROUP B STREPTOCOCCUS BY PCR Polyhydramnios in third trimester complication, single or unspecified fetus (HCC) MILD- no intervention needed at this time. History of gestational hypertension Orders: URINE OB DIP B/O Obesity affecting in third trimester, unspecified obesity type (HCC) Orders: URINE OB DIP B/O 36 weeks gestation of (HCC) Kick counts and labor reviewed Orders: URINE OB DIP B/O RSV VACCINE, BIVALENT (ABRYSVO) Liseth Christian MD ROUTINE, GROUP B STREPTOCOCCUS BY PCR Observed: 05/03/2025 11:01 AM Status: F Source: [facility] GRP B STREPTOCOCCUS DNA, ROU MONIQUE : Not detected Performed By: #### GBPCR ### # [facility] CLIA [id number] [address] [place] [address] OF [facility] CNPN Observed: 04/19/2025 12:00 AM Status: COMPLETED Source: [facility] Telephone (OBGYWM) RUBIO CASTLE ([id number]) 1990 F Date Time Provider Department 04/19/25 CARLOS BAZZI During your visit today, we recorded the following information about you: Preethi Penaloza RN 04/19/2025 8:52 AM Signed Breast pump received from [employer]. To KJ to sign. NELSON Cota Trisha, RN 04/21/2025 9:20 AM Signed Order signed and faxed. Preethi Penaloza RN Allergies As of Date: 04/19/2025 Noted Allergy Reaction SEASONAL ALLERGIES 02/15/2019 16 - Unknown Comments: Trees and grasses verified by skin testing Date Reviewed: 04/18/2025 Reviewed by: Carlos Bazzi MD - Fully Assessed Reason for Visit: Breast Pump [Other] Prescriptions as of 04/21/2025 - Breast Pump Use as directed - aspirin, enteric coated (ECOTRIN LOW STRENGTH) 81 mg EC tablet Take 1 tablet by mouth once daily. - 25/iron fum/folic/dha (-1 ORAL) Take by mouth. - cetirizine (ZYRTEC) 10 mg tablet Take 1 tablet by mouth once daily. Problem List As Of Date 04/19/2025 Noted Resolved Dysmenorrhea [N94.6] 08/06/2009 12/04/2022 Acne [L70.9] 08/06/2009 11/18/2024 resulting from assisted reproductive *10/16/2022 Patient request for diagnostic testing [Z01.89] 10/16/2022 05/26/2023 Subchorionic hemorrhage of placenta, antepartum*11/27/2022 05/26/2023 Placenta previa specified as without hemorrhage*12/16/2022 01/01/2023 Supervision of high risk in third tri*10/20/2024 History of gestational hypertension [Z87.59] 10/20/2024 History of migraine [Z86.69] 10/20/2024 Nausea and vomiting during (HCC) [O21*10/20/2024 11/18/2024 Excessive growth affecting management of *04/03/2025 Encounter Status:Closed by PREETHI PENALOZA on 04/21/25 PROGRESS Observed: 04/03/2025 11:09 AM Status: COMPLETED Source: [facility] ID: [id number] Author: BALAJI CASIANO APRN.CNM Service: ? Author Type: Java Sybase Developer Type: Progress Notes Filed: 04/03/2025 11:26 Note Text: LEE-S: Rubio Castle is a 34 year old female who presents at 31w5d with ANALILIA:05/31/2025, by Last Menstrual Period for a routine visit. Denies headache, visual changes, chest pain, shortness of breath, vaginal bleeding, leakage of fluid, or dysuria. Feeling well, no complaints. O: See flow sheet Gen: No apparent distress Abd: Gravid, nontender Preliminary growth US results, 91st percentile, awaiting official results. ASSESSMENT/PLAN: 1. Supervision of high risk in second trimester 2. 31 weeks gestation of -Continue PNV 3. resulting from assisted reproductive technology, antepartum - echocardiogram completed on 01/31/25 -Growth US every 4 wk at 32 wk, awaiting results from today -Weekly NSt at 36 wk -IOL at 39wk 4. History of gestational hypertension -ASA 162mg PO once daily -Baseline labs normal -BP stable PTL precautions reviewed and when to call RTO in 2 weeks Balaji Casiano APRN.CNM GESTATIONAL GLUCOSE SCREEN, 1-HOUR, 50 GRAM, NON-FASTING Collected: 03/06/2025 9:35 AM Status: F Source: [facility] Order Comment: Specimen Type : BLOOD SPECIMEN Ordering Facility: [facility] Address: [address] [place] [address] TYPE CODE TESTS RESULT OUT OF RANGE REFERENCE UNITS LAB 2345-7(LOINC) Glucose SerPl-mCnc 103 74-134 mg/dL Result Comment: [place] [employer]stetric[employer] and [employer]nec[employer] (Bonds/Rosina) guidelines state a gestational diabetes mellitus positive screen is made, in women not previously diagnosed with overt diabetes, when the 1 hr plasma glucose level is equal to or above 140 mg/dL. The [facility] [employer] [facility] recommends a 135 mg/dL cutoff. Performed By: #### GLTGST ## ## [facility] CLIA [id number] [address] [place] [address] [place] REAGIN+T PALLIDUM IGG+IGM SERPL-IMP Collected: 03/06/2025 9:35 AM Status: F Source: [facility] Comment: Specimen Type : BLOOD SPECIMEN Ordering Facility: [facility] Address: [address] [place] [address] TYPE CODE TESTS RESULT OUT OF RANGE REFERENCE UNITS LAB 54314-9(LOINC) T pallidum IgG+IgM Ser Ql IA Nonreactive Nonreactive LAB 75821-5(INC) Reagin+T pallidum IgG+IgM SerPl-Imp Cannot exclude recent Treponemal infection if specimen collected within 7-10 days after appearance of suspect lesions or 2-3 weeks after an exposure. Clinical correlation is required. Performed By: #### 02623-2 # ### [facility] CLIA [id number] [address] [place] [address] CBC W AUTO DIFF BLD Collected: 03/06/2025 9:[address] atus: F Source: [facility] Order Comment: Specimen Type : BLOOD SPECIMEN Ordering Facility: [facility] Address: [address] [place] [address] TYPE CODE TESTS RESULT OUT OF RANGE REFERENCE UNITS LAB 6690-2(LOINC) WBC # Bld Auto 9.89 3.70-11.00 k/uL LAB 789-8(LOINC) RBC # Bld Auto 3.80 Low 3.90-5.20 m/ uL LAB 718-7(LOINC) Hgb Bld-mCnc 12.8 11.5-15.5 g/dL LAB 4544-3(LOINC) Hct VFr Bld Auto 36.7 36.0-46.0 % LAB 787-2(LOINC) MCV RBC Auto 96.6 80.0-100.0 fL LAB 785-6(LOINC) MCH RBC Qn Auto 33.7 26.0-34.0 p g LAB 786-4(LOINC) MCHC RBC Auto-mCnc 34.9 30.5-36.0 g/dL LAB 05977-5(LOINC) RDW RBC-Rto 13.3 11.5-15.0 % LAB 777-3(LOINC) Platelet # Bld Auto 170 150-400 k/uL LAB 82283-8(LOINC) PMV Bld Auto 9.6 9.0-12.7 fL LAB 770-8(LOINC) Neutrophils/leuk NFr Bld Auto 75.0 % LAB 751-8(LOINC) Neutrophils # Bld Auto 7.42 1.45-7.50 k/uL LAB 736-9(LOINC) Lymphocytes/leuk NFr Bld Auto 17.1 % LAB 731-0(LOINC) Lymphocytes # Bld Auto 1.69 1.00-4.00 k/uL LAB 5905-5(LOINC) Monocytes/leuk NFr Bld Auto 6.3 % LAB 742-7(LOINC) Monocytes # Bld Auto 0.62 <0.87 k/uL LAB 713-8(LOINC) Eosinophil/leuk NFr Bld Auto 0.0 % LAB 711-2(LOINC) Eosinophil # Bld Auto <0.03 <0.46 k/uL LAB 706-2(LOINC) Basophils/leuk NFr Bld Auto 0.4 % LAB 704-7(LOINC) Basophils # Bld Auto 0.04 <0.11 k/uL LAB 76936-1(LOINC) Imm Granulocytes/cezar k NFr Bld Auto 1.2 % LAB 46726-1(LOINC) Imm Granulocytes # Bld Auto 0.12 High <0.10 k/uL LAB 88593-3(LOINC) nRBC/100 WBC Bld-Rto 0.0 /100 WBC LAB 771-6(LOINC) nRBC # Bld Auto <0.01 <0.01 k/u L LAB 67486-8(LOINC) Differential method Bld Auto Performed By: #### 67206-1 # ### [facility] [id number] [address] [place] [address] OF [facility] PROGRESS Observed: 03/06/2025 8:38 AM Status: COMPLETED Source: [facility] HNO ID: [id number] Author: BRITTANIE SHEFFIELD MA Service: ? Author Type: Software Engineer Developer Type: Progress Notes Filed: 03/06/2025 09:38 Note Text: Patient identified by name and date of . Rubio Castle presents today for a vaccination of Tdap. Patient denies an allergy to latex: yes Patient denies a severe (life-threatening) allergy to a previous dose of Tdap, DTP, DTaP, DT or Td vaccine. Yes Patient denies history of epilepsy or neurological problems: Yes Patient is afebrile and denies being moderately or severely ill: Yes Patient denies history of Guillain-Latta Syndrome (a severe paralytic illness): Yes Tdap Adacel injection was given without incident. See immunizations for details of immunizations administered today. VIS sheet provided: Yes Provider Javad was present in office at time of injection. Brittanie Sheffield MA PROGRESS Observed: 01/31/2025 9:50 AM Status: COMPLETED [facility] [id number] Author: GRICEL MILLER MD Service: ? Author Type: Physician Type: Progress Notes Filed: 01/31/2025 09:57 Note Text: NAME: Rubio Castle CLINIC Number.: [id number] Date of : 1990 Date of Visit: January 31, 2025 Referring Provider: Aundrea Parks Dear Aundrea Parks, Consultation requested for an opinion regarding Rubio Castle. My final recommendations will be communicated back to the requesting physician by way of shared Medical record or letter to requesting physician via US mail. Ms. Rubio Castle was seen for echocardiogram and pediatric cardiology consultation on January 31, 2025. She is a 34 year old woman, at 22 6/7 weeks gestation referred due to achieved via IVF. She has had preimplantation genetic testing and the results were negative. She herself has no significant past medical history. There is no family history of congenital heart disease. Echocardiogram Summary: 1. Segmental anatomy and situs are normal. 2. Widely patent foramen ovale with normal intrauterine right to left flow. 3. Trace mitral valve regurgitation. 4. Qualitatively normal right ventricular size and wall thickness with normal systolic function. 5. Normal left ventricular size and wall thickness with normal systolic function. 6. Aortic arch is widely patent. 7. Ductal arch is widely patent with normal intrauterine right to left flow. 8. Normal heart rate and rhythm. 9. No pericardial effusion. Please see full echocardiogram report for complete details. Assessment and Plan: In summary, the echocardiogram today showed normal intracardiac anatomy with normal ventricular function and normal heart rate and rhythm. There is trivial mitral regurgitation with a normal appearing mitral valve which is of no hemodynamic significance. We discussed these findings with Ms. Rubio Castle. In addition, the limitations of the echocardiogram and echocardiography in general, including the inability to exclude ASDs, some VSDs, minor valvar abnormalities, partial anomalous pulmonary venous return, persistent patent ductus arteriosus, and coarctation of the aorta, were explained. Based on these data we did not recommend any specific further or cardiac evaluation, though we would be happy to see her back should new concerns arise. Thank you for allowing me to participate in the care of your patient and please do not hesitate to contact me if I can be any further assistance. I spent a total of 40 minutes on the date of the service which included preparing to see the patient, [id number] patient care, completing clinical documentation, obtaining and/or reviewing separately obtained history, counseling and educating the patient/family/caregiver, communicating with other HCPs (not separately reported), and communicating results to the patient/family/caregiver. Sincerely, Gricel Miller MD January 31, 2025 Observed: 01/31/2025 9:01 AM Status: F Source: [facility] + +-+ Pediatric Cardiology Echocardiogram Report + +-+ NAME: MISS RUBIO CASTLE : 1990 PT ID#: [id number] Age: 34 years Sex: F STUDY DATE: 01/31/2025 9:01:17 AM ANALILIA: 05/31/2025 GA: 22w6d Image Quality: Referring Physician: Aundrea Diagnosing Physician: Gricel Miller MD Prefitter: Temitope Elkins [facility] 2nd Prefitter: Diagnosis: O35.4WM0Osggcgere abnormality and damage, single fetus or unspecified Procedure Code: 47086, 37377, 76771 Echo, Complete (w/Doppler and color) Exam Location: [facility] (). Indications: Evaluate cardiac anatomy, size, and function Color Doppler was utilized to interrogate the cardiac valves assessed. Spectral Doppler was utilized to determine the flow velocities and pressure gradients reported in this exam. History: IVF Parameters: Single/Multi: Echols Position: position is cephalic Biometry: Biometry Table: Biparietal Diameter 5.42 cm Abdominal Circumference 18.28 cm Femur Length 4.07 cm Estimated Weight 536.09 g Vessels: Three-vessel umbilical cord is present. Umbilical artery flow Doppler is normal. Umbilical venous flow Doppler is normal. Ductus Venosus Doppler is normal. Cerebral Artery Doppler is normal. UA S/D 2.4 UA PI 0.84 MCA PI 1.72 Rate and Rhythm: Normal heart rate and rhythm. HR 136 bpm Mechanical RI 113 ms Segmental Anatomy, Cardiac Position and Situs: The segmental anatomy and situs are normal. Normal visceral situs. The heart position is within the left hemithorax (levo position). Levocardia (apex to the left). The aorta is to the right of the pulmonary artery. Segmental anatomy is S,D,S. Systemic Veins: Right superior vena cava is right sided and drains normally to the right atrium. The inferior vena cava is right sided and inserts normally into the right atrium. Pulmonary Veins: At least one pulmonary vein on each side drains to the left atrium. Atria: The right atrium is normal in size. The left atrium is normal in size. Widely patent foramen ovale with normal intrauterine right to left flow. Tricuspid Valve: The tricuspid valve is normal. Tricuspid valve inflow Doppler is biphasic. There is no tricuspid valve regurgitation. Right Ventricle: There is qualitatively normal right ventricular size and wall thickness with normal systolic function. Mitral Valve: The mitral valve is normal. There is trace mitral valve regurgitation. Mitral valve inflow Doppler is biphasic. Left Ventricle: Normal left ventricular size and wall thickness with normal systolic function. VSD: There is no obvious ventricular septal defect. Conotruncal Anatomy: There is normal conotruncal anatomy. RVOT: There is no right ventricular outflow tract obstruction. Pulmonary Valve: The pulmonary valve is normal. There is no pulmonary valve stenosis. There is no pulmonary valve regurgitation. Pulmonary Arteries: The main and branch pulmonary arteries appear normal. The main pulmonary artery is normal. LVOT: There is no left ventricular outflow tract obstruction. Aortic Valve: The aortic valve is normal with no stenosis and no regurgitation. Aorta: Aortic arch is widely patent. There is a left aortic arch. Ductus Arteriosus: Ductal arch is widely patent with normal intrauterine right to left flow. Pericardium: There is no pericardial effusion. Measurements: 2D: Z-Score Aortic annulus 3.5 mm -0.68 Ao transverse 3.2 mm MV annulus 6.6 mm 1.16 Pulmonary annulus 4.4 mm -0.41 TV annulus 6.5 mm 0.60 LPA diameter 2.6 mm 0.62 RPA diameter 2.7 mm 0.81 Doppler: AoV Vmax 0.8 m/s AoV pk grad 2.8 mmHg PV Vmax 0.6 m/s PV pk grad 1.4 mmHg Summary 1. Segmental anatomy and situs are normal. 2. Widely patent foramen ovale with normal intrauterine right to left flow. 3. Trace mitral valve regurgitation. 4. Qualitatively normal right ventricular size and wall thickness with normal systolic function. 5. Normal left ventricular size and wall thickness with normal systolic function. 6. Aortic arch is widely patent. 7. Ductal arch is widely patent with normal intrauterine right to left flow. 8. Normal heart rate and rhythm. 9. No pericardial effusion. Gricel Miller MD *Electronically signed on 01/31/2025 at 9:50:11 AM Final CC Leaky Medical Image : [id number] See Link below for Image PROGRESS Observed: 01/10/2025 9:29 AM Status: COMPLETED Source: [facility] HNO ID: [id number] Author: BALAJI CASIANO APRN.CNM Service: ? Author Type: Java Sybase Developer Type: Progress Notes Filed: 01/10/2025 09:42 Note Text: LEE- PROGRESS Observed: 12/23/2024 8:31 AM Status: COMPLETED Source: [facility] HNO ID: [id number] Author: AUNDREA PARKS APRN.CNP Service: ? Author Type: Nurse Practitioner Type: Progress Notes Filed: 12/23/2024 08:40 Note Text: EH - S: Rubio is a 34 year old female who presents at 17w2d for a routine visit. Feeling movement. Denies headache, visual changes, chest pain, shortness of breath, vaginal bleeding, leakage of fluid, or dysuria. Feeling well, no complaints. Going to [place] next month. O: See flow sheet Gen: No apparent distress Abd: Gravid, nontender ASSESSMENT/PLAN: 1. Supervision of high risk in second trimester ([facility]) - ICD9: V23.9, ICD10: O09.92 (primary diagnosis) - Continue PNV - Reviewed travel precautions 2. 17 weeks gestation of ([facility]) - ICD9: V22.2, ICD10: Z3A.17 - Anatomy ultrasound next visit 3. resulting from assisted reproductive technology, antepartum ([facility]) - ICD9: V23.85, ICD10: O09.819 - echo ordered 4. History of gestational hypertension - ICD9: V13.29, ICD10: Z87.59 - Continue LDA PTL precautions reviewed. RTO in 4 weeks or sooner as needed. Aundrea Parks APRN.FRANCISCO SINGHN Observed: 10/21/2024 12:00 AM Status: COMPLETED Source: [facility] Telephone (OBGYWM) RUBIO CASTLE ([id number]) 1990 F Date Time Provider Department 10/21/24 LISETH VASQUEZ OBGYWM During your visit today, we recorded the following information about you: Melinda Juan RN 10/21/2024 8:39 AM Signed Patient 8w2d calling with concerns of vaginal inflammation after her New OB appointment yesterday. Patient states inflammation started 4-5 hours after her appointment and is wondering if using the wipes to compete her urine culture had anything to do with it. Patient states she is having some vaginal itching, but denies burning or discharge. Per patient inflammation has improved some this morning but is still present. NELSON Heller Deidre, MD 10/21/2024 10:13 AM Signed Just recommend cool compresses /soaks with water only . Do not wash vagina with any soaps. Make sure all detergents/dryer sheets are free and clear of dyes and perfumes. Melinda Juan RN 10/21/2024 10:28 AM Signed Patient notified and voiced understanding of information and instructions below. Melinda Juan RN Allergies As of Date: 10/21/2024 Noted Allergy Reaction SEASONAL ALLERGIES 02/15/2019 16 - Unknown Comments: Trees and grasses verified by skin testing Date Reviewed: 10/20/2024 Reviewed by: Aundrea Parks APRN.DRAMATIC TEACHER - Fully Assessed Reason for Visit: Question (OB Question) [9512] Prescriptions as of 10/21/2024 - aspirin, enteric coated (ECOTRIN LOW STRENGTH) 81 mg EC tablet Take 1 tablet by mouth once daily. - estradiol (ESTRACE) 2 mg tablet Take 2 mg by mouth once daily. - PROGESTERONE INTRAMUSC. Inject 1.5 mL intramuscularly once daily. - 25/iron fum/folic/dha (-1 ORAL) Take by mouth. - Ascorbic Acid 1,000 mg tablet Take 1,000 mg by mouth once daily. - cetirizine (ZYRTEC) 10 mg tablet Take 1 tablet by mouth once daily. Problem List As Of Date 10/21/2024 Noted Resolved Dysmenorrhea [N94.6] 08/06/2009 12/04/2022 Acne [L70.9] 08/06/2009 resulting from assisted reproductive *10/16/2022 Patient request for diagnostic testing [Z01.89] 10/16/2022 05/26/2023 Subchorionic hemorrhage of placenta, antepartum*11/27/2022 05/26/2023 Placenta previa specified as without hemorrhage*12/16/2022 01/01/2023 Encounter for supervision of high risk pregnanc*10/20/2024 History of gestational hypertension [Z87.59] 10/20/2024 History of migraine [Z86.69] 10/20/2024 Nausea and vomiting during [O21.9] 10/20/2024 Encounter Status:Closed by MELINDA JUAN on 10/21/24 PROT/CREAT UR Collected: 12:08 PM Status: F Source: [facility] Comment: Specimen Type : URINE SPECIMEN Ordering Facility: [facility] Address: [address] [place] [address] TYPE CODE TESTS RESULT OUT OF RANGE REFERENCE UNITS LAB 2888-6(LOINC) Prot Ur-mCnc <4 0-20 mg/dL LAB 2161-8(LOINC) Creat Ur-mCnc 27.3 Low 42.2-237.9 mg/dL LAB 2890-2(LOINC) Prot/Creat Ur <0.15 <0.15 mg/mg Result Comment: Adult Protei rashmi Categories: <0.15 mg/mg is considered normal to mildly increased 0.15 - 0.50 mg/mg is considered moderately increased >0.50 mg/mg is considered severely increased KDIGO. (2013). KDIGO 2012 Clinical Practice Guideline for the Evaluation and Management of Chronic Kidney Disease. Official Journal of the International Society of Nephrology, 3(1), 1-150. Performed By: #### 2890-2 ## ## [facility] CLIA [id number] [address] [place] RUBELLA IGG ANTIBODY Collected: 025 12:02 PM Status: F Source: [facility] Comment: Specimen Type : BLOOD SPECIMEN Ordering Facility: [facility] Address: [address] [place] [address] TYPE CODE TESTS RESULT OUT OF RANGE REFERENCE UNITS LAB RUBGQL RUBELLA IGG AB, QUAL Positive Positive Result Comment: The result s uggests recent or past exposure to Rubella virus or history of Rubella vaccination. Positive result may also be seen due to presence of passively-transferred antibodies. Please correlate with patient's history. Performed By: #### RUBIGG ## ## [facility] CLIA [id number] [address] [place] [address] [place] HCV AB SER QL Collected: 5 12:02 PM Status: F Source: [facility] Comment: Specimen Type : BLOOD SPECIMEN Ordering Facility: [facility] Address: [address] [place] [address] TYPE CODE TESTS RESULT OUT OF RANGE REFERENCE UNITS LAB 62357-2(LOINC) HCV Ab Ser Ql Negative Negative Result Comment: The result s uggests no evidence of active infection with Hepatitis C virus. Should recent infection be suspected, repeat testing may be considered 4- 6 weeks after this draw. Performed By: #### 94209-8 # ### [facility] CLIA [id number] [address] [place] [address] [place] [address] [place] CBC W AUTO DIFF BLD Collected: 10/20/2024 12:02 PM S tatus: F Source: [facility] Order Comment: Specimen Type : BLOOD SPECIMEN Ordering Facility: [facility] Address: [address] [place] [address] TYPE CODE TESTS RESULT OUT OF RANGE REFERENCE UNITS LAB 6690-2(INC) WBC # Bld Auto 8.54 3.70-11.00 k/uL LAB 789-8(INC) RBC # Bld Auto 4.11 3.90-5.20 m/ uL LAB 718-7(LOINC) Hgb Bld-mCnc 13.4 11.5-15.5 g/dL LAB 4544-3(INC) Hct VFr Bld Auto 38.3 36.0-46.0 % LAB 787-2(LOINC) MCV RBC Auto 93.2 80.0-100.0 fL LAB 785-6(LOINC) MCH RBC Qn Auto 32.6 26.0-34.0 p g LAB 786-4(LOINC) MCHC RBC Auto-mCnc 35.0 30.5-36.0 g/dL LAB 52812-4(LOINC) RDW RBC-Rto 11.6 11.5-15.0 % LAB 777-3(LOINC) Platelet # Bld Auto 274 150-400 k/uL LAB 40082-8(LOINC) PMV Bld Auto 9.4 9.0-12.7 fL LAB 770-8(LOINC) Neutrophils/leuk NFr Bld Auto 53.2 % LAB 751-8(LOINC) Neutrophils # Bld Auto 4.54 1.45-7.50 k/uL LAB 736-9(LOINC) Lymphocytes/leuk NFr Bld Auto 28.2 % LAB 731-0(LOINC) Lymphocytes # Bld Auto 2.41 1.00-4.00 k/uL LAB 5905-5(LOINC) Monocytes/leuk NFr Bld Auto 5.7 % LAB 742-7(LOINC) Monocytes # Bld Auto 0.49 <0.87 k/uL LAB 713-8(LOINC) Eosinophil/leuk NFr Bld Auto 12.1 % LAB 711-2(LOINC) Eosinophil # Bld Auto 1.03 High <0.46 k/uL LAB 706-2(LOINC) Basophils/leuk NFr Bld Auto 0.6 % LAB 704-7(LOINC) Basophils # Bld Auto 0.05 <0.11 k/uL LAB 75258-0(LOINC) Imm Granulocytes/cezar k NFr Bld Auto 0.2 % LAB 36373-9(LOINC) Imm Granulocytes # Bld Auto <0.03 <0.10 k/uL LAB 93469-1(LOINC) nRBC/100 WBC Bld-Rto 0.0 /100 WBC LAB 771-6([facility]) nRBC # Bld Auto <0.01 <0.01 k/u L LAB 22735-7([facility]) Differential method Bld Auto Performed By: #### 66121-2 # ### [facility] CLIA [id number] [address] [place] [address] DEPRECATED HGB A1C BLD Collected: 10/20 12:02 PM Status: F Source: [facility] Order Comment: Specimen Type : BLOOD SPECIMEN Ordering Facility: [facility] Address: [address] [place] [address] TYPE CODE TESTS RESULT OUT OF RANGE REFERENCE UNITS LAB 4548-4([facility]) HbA1c MFr Bld 4.9 4.3-5.6 % Result Comment: [place] Kassandra betes Association guidelines indicate that patients with HgbA1c in the range 5.7-6.4% are at increased risk for development of diabetes, and intervention by lifestyle modification may be beneficial. HgbA1c greater or equal to 6.5% is considered diagnostic of diabetes. LAB 55798-5(INC) Est. average glucose Bld gHb Est-mCnc 94 mg/dL Result Comment: eAG: (Estima abdoulaye average glucose) is a calculated value from HgbA1c and is union representative of the average blood glucose level in the last 2-3 month period. Performed By: #### 11991-7 # ### [facility] CLIA [id number] [address] [place] [address] OF [facility] HBV SURFACE AG SER QL Collected: 2024 12:02 PM Status: F Source: [facility] Comment: Specimen Type : BLOOD SPECIMEN Ordering Facility: [facility] Address: [address] [place] [address] TYPE CODE TESTS RESULT OUT OF RANGE REFERENCE UNITS LAB 5195-3([facility]) HBV surface Ag Ser Ql Negative Negative Performed By: #### 82434-6, 50521-0, 5195-3 #### [facility] CLIA [id number] [address] [place] [address] HIV1+2 AB SERPL QL IA Collected: 2024 12:02 PM Status: F Source: [facility] Comment: Specimen Type : BLOOD SPECIMEN Ordering Facility: [facility] Address: [address] [place] [address] TYPE CODE TESTS RESULT OUT OF RANGE REFERENCE UNITS LAB 09390-9([facility]) HIV 1+2 Ab+HIV1 p24 Ag SerPl Ql IA Nonreactive Nonreactive LAB 60469-1([facility]) HIV 1 AND 2 Ab SerPlBld IA.rapid Result Comment: Test not ind icated. LAB 19541-4([facility]) HIV IA algorithm interp SerPlBld-Imp Result Comment: No evidence of HIV-1 or HIV-2 infection. Should recent infection be suspected, repeat testing may be considered 2-3 weeks after this draw. [place] Rev. Code 3701.243(E): This information has been disclosed to you from confidential records protected from disclosure by state law. ???You shall make no further disclosure of this information without the specific, written, and informed release of the individual to whom it pertains or as otherwise permitted by state law. A general authorization for the release of medical or other information is not sufficient for the purpose of the release of HIV test results or diagnoses. Performed By: #### 50817-3, 78261-1, 5195-3 #### [facility] CLIA [id number] [address] [place] [address] REAGIN+T PALLIDUM IGG+IGM SERPL-IMP Collected: 10/20/2024 12:02 PM Status: F Source: [facility] Order Comment: Specimen Type : BLOOD SPECIMEN Ordering Facility: [facility] Address: [address] [place] [address] TYPE CODE TESTS RESULT OUT OF RANGE REFERENCE UNITS LAB 43697-1(INC) T pallidum IgG+IgM Ser Ql IA Nonreactive Nonreactive LAB 50401-7([facility]) Reagin+T pallidum IgG+IgM SerPl-Imp Cannot exclude recent Treponemal infection if specimen collected within 7-10 days after appearance of suspect lesions or 2-3 weeks after an exposure. Clinical correlation is required. Performed By: #### 81601-9, 80403-4, 5195-3 #### [facility] CLIA [id number] [address] [place] [address] [place] COMP METAB 2000 PNL SERPL Collected: 12:02 PM Status: F Source: [facility] Order Comment: Specimen Type : BLOOD SPECIMEN Ordering Facility: [facility] Address: [address] [place] [address] TYPE CODE TESTS RESULT OUT OF RANGE REFERENCE UNITS LAB 2885-2(LOINC) Prot SerPl-mCnc 6.8 6.3-8.0 g/dL LAB 1751-7(LOINC) Albumin SerPl-mCnc 4.1 3.9-4.9 g/dL LAB 63355-6(LOINC) Calcium SerPl-mCnc 9.4 8.5-10.2 mg/dL LAB 1975-2(LOINC) Bilirub SerPl-mCnc 0.2 0.2-1.3 mg/dL LAB 6768-6(LOINC) ALP SerPl-cCnc 55 34-123 U/L LAB 1920-8(LOINC) AST SerPl-cCnc 16 13-35 U/L LAB 1742-6(LOINC) ALT SerPl-cCnc 21 7-38 U/L LAB 2345-7(LOINC) Glucose SerPl-mCnc 83 74-99 mg/dL Result Comment: The [place] Diabetes Association (ADA) provides guidance for cutoff values for fasting glucose and random glucose. The ADA defines fasting as no caloric intake for at least 8 hours. Fasting plasma glucose results between 100 to 125 mg/dL indicate increased risk for diabetes (prediabetes). Fasting plasma glucose results greater than or equal to 126 mg/dL meet the criteria for diagnosis of diabetes. In the absence of unequivocal hyperglycemia, results should be confirmed by repeat testing. In a patient with classic symptoms of hyperglycemia or hyperglycemic crisis, random plasma glucose results greater than or equal to 200 mg/dL meet the criteria for diagnosis of diabetes. Reference: Standards of Medical Care in Diabetes 2016, [place] Diabetes Association. Diabetes Care. 2016.39(Suppl 1). LAB 3094-0(LOINC) BUN SerPl-mCnc 9 7-21 mg/ dL LAB 2160-0(LOINC) Creat SerPl-mCnc 0.60 0.58-0.96 mg/dL LAB 2951-2(LOINC) Sodium SerPl-sCnc 137 136-144 mmol/L LAB 2823-3(LOINC) Potassium SerPl-sCnc 3.7 3.7-5.1 mmol/L LAB 2075-0(LOINC) Chloride SerPl-sCnc 102 98-107 mmol/L LAB 2028-9(LOINC) CO2 SerPl-sCnc 25 22-30 mmo l/L LAB 46033-6(LOINC) Anion Gap SerPl-sCnc 10 8-15 mmol/L LAB 57996-2(LOINC) Creatinine + eGFR Pnl SerPlBld 122 >=60 mL/min/1 .73m??? Result Comment: Estimated Gl omerular Filtration Rate (eGFR) is calculated using the 2020 CKD-EPI creatinine equation. This equation utilizes serum creatinine, sex, and age as parameters. The creatinine assay has traceable calibration to isotope dilution-mass spectrometry. Refer to KDIGO guidelines for clinical interpretation. In patients with unstable renal function, e.g. those with acute kidney injury, the eGFR may not accurately reflect actual GFR. Performed By: #### 50406-9 # ### [facility] CLIA [id number] [address] [id number] [place] TSH SERPL-ACNC Collected: 12:02 PM Status: F Source: [facility] Comment: Specimen Type : BLOOD SPECIMEN Ordering Facility: [facility] Address: [address] [place] [address] TYPE CODE TESTS RESULT OUT OF RANGE REFERENCE UNITS LAB 81037-5(LOINC) TSH SerPl DL<=0.005 mIU/L-aCnc 1.090 0.270-4.200 mIU/L Result Comment: If the patie nt is , TSH reference range varies by gestational period: First Trimester (weeks 9-12): 0.180-2.990 mIU/L Second Trimester: 0.110-3.980 mIU/L Third Trimester: 0.480-4.710 mIU/L Eddie Dickerson et al. A Practical Approach for the Verifications and Determination of Site- and Trimester-Specific Reference Intervals for Thyroid Function tests in . Thyroid, 2019:29:3:412-420. Robert E, et al. 2017 Guidelines of the [place] Thyroid Association for the Diagnosis and Management of Thyroid Disease during and the . Thyroid, 2017:27:3:315-389. Performed By: #### 3016-3 ## ## [facility] CLIA [id number] [address] [place] TYPE + SCREEN Collected: 10/20/2024 12:02 PM Status: F Source: [facility] Comment: Specimen Type : BLOOD SPECIMEN Ordering Facility: [facility] Address: [address] [place], [place] [id number] TYPE CODE TESTS RESULT OUT OF RANGE REFERENCE UNITS LAB [id number] ABO A LAB [id number] RH Positive LAB [id number] ANTIBODY SCREEN Negative LAB [id number] TYPE AND SCREEN EXPIRATION 10/23/2024 22:59 Performed By: #### TSPN #### [facility] CLIA [id number] [address] [place] [address] [place] [address] [place] BACTERIA UR CULT Observed: 10/20/2024 11:47 AM Status: F Source: [facility] ORGANISM ID: 1 <10,000 CFU/ml Normal urogenital ivan Performed By: #### 630-4 ### # [facility] CLIA [id number] [address] [place] [address] [place] C TRACH+GC DNA SPEC QL BERNABE+PROBE Collected: 10/20/2024 11:47 AM Status: F Source: [facility] Order Comment: Specimen Type : SWAB Ordering Facility: [facility] Address: [address] [place] [address] TYPE CODE TESTS RESULT OUT OF RANGE REFERENCE UNITS LAB 69126-9(LOINC) N gonorrhoea rRNA Spec Ql BERNABE+probe Not detected Not detected LAB 25898-3(LOINC) C trach rRNA Spec Ql BERNABE+probe Not detected Not detected Performed By: #### JESSICA, 3 6902-5 #### [facility] CLIA [id number] [address] [place] [address] OF [facility] TRICHOMONAS VAGINALIS NAAT Collected: 0 10/20/2024 11:47 AM Status: F Source: [facility] Order Comment: Specimen Type : SWAB Ordering Facility: [facility] Address: [address] [place] [address] TYPE CODE TESTS RESULT OUT OF RANGE REFERENCE UNITS LAB 27260-3(LOINC) T vaginalis DNA Spec Ql BERNABE+probe Not detected Not detected Performed By: #### JESSICA, 3 6902-5 #### [facility] CLIA [id number] [address] [place] [address] [place] CNPN Observed: 10/20/2024 12:00 AM Status: COMPLETED Source: [facility] Telephone (OBElectric CloudWM) BRANDENRUBIO Stella ([id number]) 1990 F Date Time Provider Department 10/20/24 AUNDREA PARKS During your visit today, we recorded the following information about you: Aundrea Parks APRN.CNP 10/20/2024 11:46 AM Signed Have we received records from [facility]? through IVF. Aundrea Parks APRN.Syl Dominguez RN 10/20/2024 2:49 PM Signed Called Pt-states she signed medical records release on 10/17/24. States she will follow-up with [facility] to make sure they send them. Confirmed fax # with Pt. At this time we have not yet received records. NELSON Ferris Trisha, RN 10/24/2024 11:56 AM Signed Received records from [facility] (formerly [facility]). Linked below to review. Scan on 10/24/2024 11:13 AM by Provider, External, [facility]: [facility] Records Allergies As of Date: 10/20/2024 Noted Allergy Reaction SEASONAL ALLERGIES 02/15/2019 16 - Unknown Comments: Trees and grasses verified by skin testing Date Reviewed: 10/20/2024 Reviewed by: Aundrea Parks APRN.CNP - Fully Assessed Reason for Visit: Records [Other] Prescriptions as of 10/24/2024 - aspirin, enteric coated (ECOTRIN LOW STRENGTH) 81 mg EC tablet Take 1 tablet by mouth once daily. - estradiol (ESTRACE) 2 mg tablet Take 2 mg by mouth once daily. - PROGESTERONE INTRAMUSC. Inject 1.5 mL intramuscularly once daily. - 25/iron fum/folic/dha (-1 ORAL) Take by mouth. - Ascorbic Acid 1,000 mg tablet Take 1,000 mg by mouth once daily. - cetirizine (ZYRTEC) 10 mg tablet Take 1 tablet by mouth once daily. Problem List As Of Date 10/20/2024 Noted Resolved Dysmenorrhea [N94.6] 08/06/2009 12/04/2022 Acne [L70.9] 08/06/2009 resulting from assisted reproductive *10/16/2022 Patient request for diagnostic testing [Z01.89] 10/16/2022 05/26/2023 Subchorionic hemorrhage of placenta, antepartum*11/27/2022 05/26/2023 Placenta previa specified as without hemorrhage*12/16/2022 01/01/2023 Encounter for supervision of high risk pregnanc*10/20/2024 History of gestational hypertension [Z87.59] 10/20/2024 History of migraine [Z86.69] 10/20/2024 Nausea and vomiting during [O21.9] 10/20/2024 Encounter Status:Closed by AUNDREA PARKS on 10/21/24 PROGRESS Observed: 10/17/2024 3:27 PM Status: COMPLETED Source: [facility] ID: [id number] Author: AUNDREA PARKS APRN.DRAMATIC TEACHER Service: ? Author Type: Nurse Practitioner Type: Progress Notes Filed: 10/20/2024 11:46 Note Text: Composite Bond Technician offered: Patient declines. INITIAL OB ASSESSMENT HPI: Rubio is a 34 year old White Female here to establish Obstetrical Care. Patient's last menstrual period was 07/08/2024 (exact date). from OB Dating Form. was planned, IVF . Complaints: No OB History Gravida1 Para1 Term1 Preterm0 AB0 Living1 SAB0 IAB0 Ectopic0 Multiple0 Live Births1 Previous history: Prior : never History of 4th degree laceration: No History of shoulder dystocia: No History of Hypertensive disorders including pre-eclampsia or gestational hypertension: gHTN (BP channing at time of induction) History of gestational diabetes: No Patient's Risk Screening for delivery: Have you had a prior echols between 20w and 36w6d? No How many pregnancies have you had before? 2 Did you have a previous baby with a GBS Infection? No Please select all that apply for any prior : N/A MEDICAL/PSYCHOSOCIAL HISTORY: History of hemorrhage or bleeding concerns: No Thyroid Disease: No History of chronic hypertension: No History of pre-existing diabetes: No ABO/RH(D) Date Value Ref Range Status 07/02/2021 A POSITIVE Final No weight on file for this encounter. Last Pap: 07/22/2024 History of abnormal pap: No Prior treatment for cervical dysplasia: none. Last HPV: 07/22/2024 History of STDs: None Partner History of STDs: None Did you have a partner with Herpes? No Tobacco use: No E-Cigarette/Vaping Use: No Caffeine use: No Drug use: No Alcohol use: No Multivitamin with Folic acid: Yes Would refuse blood transfusion if medically necessary: No Social Needs: How often does this describe you? I don't have enough money to pay my bills: Never Within the past 12 months, have you worried that your food would run out before you had money to buy more? Never In the past 12 months, has lack of reliable transportation kept you from going to medical appointments or work, or from getting things needed for daily living? Never In the past 12 months, have you had any concerns about having a place to live, or about the condition or quality of your housing? Never Would you like more information on any of the following (please check all that apply)? Not interested Social History: Do you have any history of depression, anxiety, PTSD, or other mood problems? No Do you have a history of abuse or trauma that may impact your experience? No Are you currently employed? Yes Depression/Anxiety Screening: denies symptoms of depression. OB Depression and Anxiety Screening- This Encounter (since 10/19/2024) Over the past 2 weeks have you felt down, depressed, or hopeless? Negative Over the past two weeks, have you felt little interest or pleasure in doing things?? Negative Feeling nervous, anxious or on edge 0-Not at all Not being able to stop or control worrying 0-Not al all Anxiety Pre-Screening Total (If >/= 3 additional questions will be reviewed) 0 Genetic Screening: Partner present: Yes Patient verbalized knowledge of partner family health history: Yes Do you or your partner have any personal or family history of defects not previously discussed: No Do you have history of a complicated by anomaly, genetic condition, or demise: No Preeclampsia Risk Screening: Screening for prevention of preeclampsia: High risk factors: None Moderate risk ractors: None OB Risk Screening: Completed, no positive findings documented. 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 Drospirenone-Ethinyl Estradiol 3-0.03 mg per tablet Take 1 tablet by mouth once daily. 25/iron fum/folic/dha (-1 ORAL) Take by mouth. Ascorbic Acid 1,000 mg tablet Take 1,000 mg by mouth once daily. cetirizine (ZYRTEC) 10 mg tablet Take 1 tablet by mouth once daily. 90 tablet 3 No current facility-administered medications for this visit. Allergies As of Date: 10/20/2024 Allergen Noted Reaction SEASONAL ALLERGIES 02/15/2019 Unknown Fully Assessed 07/19/2024 Does patient have penicillin allergy: No REVIEW OF SYSTEMS: GENERAL: Negative for: Fever or Chills HEENT: Negative for: Headache, Impaired Vision, Ringing in Ears, Nosebleeds + migraines NECK: Negative for: Swelling, Pain, Stiffness RESPIRATORY: Negative for: Cough, Shortness of breath, Wheezing GASTROINTESTINAL: Negative for: Heartburn, Constipation, Diarrhea, Blood in stool + nausea MUSCULOSKELETAL: Negative for: Muscle or joint pain, stiffness, Joint swelling NEUROLOGIC/PSYCHIATRIC: Negative for: Weakness, Paralysis, Numbness, Tingling, Tremor, Anxiety, Depression, Memory loss SKIN: Negative for: Rash, Itching GENITOURINARY: Negative for: vaginal itching, vaginal discharge, hematuria or dysuria SENSITIVE EXAM: The sensitive examination was discussed with the Patient or Patient's Authorized Seed Buyer. As applicable, any other physician, advance practice provider, medical student, or other health professional student that will be observing or involved in the sensitive examination for educational or training purposes was discussed with the Patient or Authorized Seed Buyer. The Patient or Authorized Seed Buyer has agreed to proceed with the sensitive examination. (Sensitive examination includes inspection and/or palpation of the breasts, pelvis, prostate and anorectal regions). PHYSICAL EXAM: LMP 07/08/2024 GENERAL: pleasant in no apparent distress DERMATOLOGY: Normal, without lesions, non-icteric, and non-hirsute NECK: Supple, full range of motion, no adenopathy, and thyroid normal CHEST: Normal inspiratory effort BREAST: soft, non-tender, symmetric, no dominant mass, normal nipple-areolar complex, no lymphadenopathy, and no nipple discharge ABDOMEN: soft, non-tender, and no masses NEURO: alert and oriented x3,exam grossly non-focal PELVIS: External genitalia normal without lesions. Perineal body intact. No vaginal or cervical lesions. Cervix closed. Uterus 8 week size. No adnexal masses or tenderness. Clinical Pelvimetry: Pelvimetry clinically assessed as adequate Limited OB ultrasound exam: single intrauterine and positive cardiac activity ASSESSMENT: 34 year old at Unknown wks gestational age PLAN: 1) Patient oriented to practice. Patient given new OB orientation folder. Discussed nutrition, folic acid supplementation, dietary guidelines, exercise, smoking, alcohol, caffeine, and drug use. Discussed gestational weight gain guidelines. Discussed routine OB labs including STD/HIV. Discussed how to access Your guide to a health and the Card Lacer Jacquard. Discussed hemoglobin electrophoresis. Patient: Previously ordered Patient has penicillin allergy, plan for allergy testing. Reviewed midwifery and career portals teacher services that are available. 2) Screening: Hemoglobin A1C: ordered Baby Aspirin: The patient has been counseled about the potential benefits of low dose aspirin in and our recommendation that this be offered to all patients, regardless of whether they meet the high risk criteria specified above. She Accepts Aneuploidy Screening: Discussed aneuploidy screening, nuchal translucency/first trimester early anatomy ultrasound and NIPT. The risks/benefits and limitations of NIPT/aneuploidy screening were reviewed including the potential for false negative and false positive results. The availability of genetic counseling was reviewed. Information on aneuploidy screening was provided. The patient chooses to proceed with First trimester early anatomy ultrasound (12-13w6d) Myriad Carrier Screening: Discussed myriad carrier screening. We discussed the availability of professional-society guided carrier screening and reviewed the conditions screened and limitations of screening. The availability of genetic counseling was reviewed. Information on carrier screening was provided. The patient Previously ordered 3) Patient offered option of Virtual Visits. Patient unsure. May consider in future. ACTIVE PROBLEM LIST Encounter for Supervision of High Risk in First Trimester, Antepartum - 10/20/2024 Comment: Care Checklist Vaccines: [] Flu vaccine [] declined [] RSV vaccine 32 0/7 - 36 6/ (Apr - Sep) [] declined [] COVID vaccine [] declined [] TDaP 27-36 [] declined First trimester: [x] Dating US [x] 1st tri labs [x] Pap smear [x] Carrier screening - already done [] declined [] NIPT screening [x] declined [x] First trimester anatomy scan [] declined [] universal ASA ordered (start 12w-16w) [] declined [] M Power Consult [] not indicated [] declined Second trimester: [] Anatomy scan [] Mode of Delivery - [] Feeding - [] Pump ordered [] Diabetes screen [] CBC, RPR [] Behavioral Health Screening Third trimester (28-30 weeks): [] Consent [] Contraception [] Media Buyer [] TeamBirth handout Third trimester (36-40 weeks): [] GBS [] Presentation - [] Scheduled [] yes - Hibiclens, pre-op instructions, CBC, TANDS ordered [] no [] HANDP [] Preferences worksheet [] History of Gestational Hypertension - 10/20/2024 Comment: October 20, 2024 States BP was elevated at start of induction Aundrea Parks APRN.DRAMATIC TEACHER History of Migraine - 10/20/2024 Comment: October 20, 2024 Discussed 400 mg of Magnesium per day. Consider neurology referral if persistent. Aundrea Parks APRN.DRAMATIC TEACHER Nausea and Vomiting During - 10/20/2024 Comment: 10/20/24 Vitamin B6 and Unisom doses reviewed. To notify if prescription is needed. Aundrea Parks APRN.DRAMATIC TEACHER Resulting From Assisted Reproductive Technology, Antepartum - 10/16/2022 Comment: October 20, 2024 IVF through [facility]. Was given 10/15 ANALILIA based on transfer. Consider echo. Aundrea Parks APRN.DRAMATIC TEACHER Follow up in 4 weeks or sooner prn. Plan for NT scan between 12w0d and 13w6d gestation. Aundrea Parks APRN.DRAMATIC TEACHER CNPN Observed: 10/05/2024 12:00 AM Status: COMPLETED Source: [facility] Telephone (OBGYWM) RUBIO CASTLE ([id number]) 1990 F Date Time Provider Department 10/05/24 JAMAAL FARMER OBW During your visit today, we recorded the following information about you: Beth Anderson RN 10/05/2024 3:26 PM Signed Patient states that she is approximately 6 weeks gestation via IVF. Yesterday she developed a migraine with aura and blurry vision. Has continued today. Pain rate of 5 out of 10. Taking Tylenol without relief. Drinking a cup of coffee in the AM, but no caffeine in the afternoon.patient asking what other things she can try or if she needs seen in the office. No upcoming NOB scheduled yet. NELSON Rios Courtney, APRN.CNM 10/05/2024 3:55 PM Signed Recommend that patient take Extra Strength Tylenol 1000 mg PO every 6 -8 hours. She can add in a Benadryl 25 mg at bedtime. Stay hydrated. If worsens, may need seen at URGENT CARE. Assist with scheduling NOB. RADHA Hsieh Lindsey, RN 10/05/2024 4:11 PM Signed Patient notified and voiced understanding of below information and instructions. Patient will call back to schedule New OB. Melinda Juan RN Allergies As of Date: 10/05/2024 Noted Allergy Reaction SEASONAL ALLERGIES 02/15/2019 16 - Unknown Comments: Trees and grasses verified by skin testing Date Reviewed: 07/19/2024 Reviewed by: Beth Quarles MD - Fully Assessed Reason for Visit: OB Migraine with Aura [Other] Prescriptions as of 10/05/2024 - fluticasone (FLONASE) 50 mcg/actuation nasal spray Use 2 Sprays in each nostril once daily. - Drospirenone-Ethinyl Estradiol 3-0.03 mg per tablet Take 1 tablet by mouth once daily. - 25/iron fum/folic/dha (-1 ORAL) Take by mouth. - Ascorbic Acid 1,000 mg tablet Take 1,000 mg by mouth once daily. - cetirizine (ZYRTEC) 10 mg tablet Take 1 tablet by mouth once daily. Problem List As Of Date 10/05/2024 Noted Resolved Dysmenorrhea [N94.6] 08/06/2009 12/04/2022 Acne [L70.9] 08/06/2009 resulting from assisted reproductive *10/16/2022 05/26/2023 Patient request for diagnostic testing [Z01.89] 10/16/2022 05/26/2023 Subchorionic hemorrhage of placenta, antepartum*11/27/2022 05/26/2023 Placenta previa specified as without hemorrhage*12/16/2022 01/01/2023 Encounter Status:Closed by JAMAAL FARMER on 10/05/24 PAP TEST Collected: 8:44 AM Status: F Source: [facility] Order Comment: Specimen Type : FLUID SPECIMEN Ordering Facility: [facility] Address: [address] [place] [address] TYPE CODE TESTS RESULT OUT OF RANGE REFERENCE UNITS PATHOLOGY [id number] CASE REPORT Result Comment: Gynecologic Cytology Report Case: [id number] Authorizing Provider: Beth Quarles MD Collected: 07/19/2024 08:44 AM Ordering Location: OB/Gynecology Received: 07/19/2024 11:49 AM First Screen: Gmitro, Yemi, CT, ASCP Specimen: Pap Test, ThinPrep, Cervix PATHOLOGY [id number] ADEQUACY Satisfactory for interpretation. PATHOLOGY [id number] INTERPRETATIO N, CYTOLOGY, PARALEGALS Result Comment: Negative for intraepithelial lesion or malignancy. OLOGY [id number] CLINICAL HISTORY, CYTOLOGY, PARALEGALS Routine Exam PATHOLOGY [id number] LMP 07/08/2024 PATHOLOGY PAPDC PAP DISCLAIMER COMMENT The Pap Smear is a screening test for cervical cancer. False negative results occur with all screening tests, emphasizing the need for rescreening at recommended intervals, and clinical correlation. PATHOLOGY PAPIC PAP INVESTMENT MANAGER COMMENT This specimen has been analyzed by the ThinPrep Imaging System, an automated imaging and review system, which assists the laboratory in evaluating cells on ThinPrep Pap tests. Following automated imaging, selected sheehan from every slide are reviewed by a cytotechnologis tAlan PATHOLOGY [facility] Result Comment: Technical co mponent, manager house screening performed at [facility], [address] [place] [address] CLIA# [id number] Diagnostic interpretation performed at [facility], [address] [place] [address] CLIA# [id number] Stock Holder: Harry Navarro M.D. Performed By: #### [id number] # ### [facility] CLIA [id number] [address] [place] [address] OF [place] HIGH RISK HUMAN PAPILLOMA VIRUS (HPV), PCR FOR DETECTION AND GENOTYPING Collected: 07/19/2024 8:44 AM Status: F Source: [facility] Order Comment: Specimen Type : FLUID SPECIMEN Ordering Facility: [facility] Address: [address] [place] [address] TYPE CODE TESTS RESULT OUT OF RANGE REFERENCE UNITS LAB 94900-7(LOINC) HPV16 Ag Spec Ql Not detected Not detected LAB 72466-3(LOINC) HPV18 Ag Spec Ql Not detected Not detected LAB 84482-7([facility]) HPV HR 12 DNA Cvx Ql BERNABE+probe Not detected Not detected Result Comment: High Risk HP V Other Type includes HPV types 31, 33, 35, 39, 45, 51, 52, 56, 58, 59, 66 and 68. Performed By: #### HPVHRT ## ## [facility] CLIA [id number] [address] [place] [address] STATES OF [place] CNOV Observed: 07/19/2024 8:20 AM Status: COMPLETED Source: [facility] Office Visit (ANGELITA) RUBIO CASTLE ([id number]) 1990 F Date Time Provider Department 07/19/24 8:20 AM BETH QUARLES During your visit today, we recorded the following information about you: Blood pressure Weight Height Last Period 120/64 66.5 kg 1.743 m 07/08/24 Beth Quarles MD 07/19/2024 12:16 PM Signed Composite Bond Technician offered: Patient declinesAlan Bergeron is a 34 year old who presents for an annual gynecologic exam without complaints. IVF cycle planned for next year. Menses: no menses - continuous OCPs. Contraception: combined hormonal contraceptives HPV vaccine: No Last Pap: 05/30/2020 normal HPV: 05/20/2019 negative History of abnormal pap: No Last mammogram: never Sexually active: Yes OB History T1 L1 SAB0 IAB0 Ectopic0 Multiple0 Live Births1 Lumber Hacker History LMP: 07/08/2024 (Exact Date), Having periods Age at Menarche: Age at First : Age at Menopause: Lumber Hacker History Comments: Sexual Activity: Yes; Male Contraception: Pill PAST MEDICAL HISTORY Diagnosis Date Infertility management Infertility, female PAST SURGICAL HISTORY Procedure Laterality Date EXTRACTION, ERUPTED TOOTH OR EXPOSED ROOT (ELEVATION AND/OR FORCEPS REMOVAL) HSG HYSTEROSCOPY, DIAGNOSTIC (SEPARATE IVF ARC PACKAGE FAMILY HISTORY Problem Relation Age of Onset No Known Problems Mother Hypertension Father Arthritis Maternal Grandmother rheumatoid and osteoarthritis and osteoporosis Alzheimer's Disease Maternal Grandfather No Known Problems Paternal Grandmother other (smoker) Paternal Grandfather Diabetes Maternal Uncle other (pacemaker) Paternal Aunt SOCIAL HISTORY Social History Tobacco Use Smoking status: Never Smokeless tobacco: Never Vaping Use Vaping status: Never Used Substance Use Topics Alcohol use: Yes Comment: Occassionally Drug use: No REVIEW OF SYSTEMS Abdomen: No abdominal pain, nausea, vomiting, diarrhea, or constipation. No bloating, early satiety, indigestion, or increased flatulence. Bladder: No dysuria, gross hematuria, urinary frequency, urinary urgency, or incontinence. Breast: No breast lumps, nipple d/c, overlying skin changes, redness or skin retraction. Allergies and current medication updated:Yes SENSITIVE EXAM: The sensitive examination was discussed with the Patient or Patient's Authorized Seed Buyer. As applicable, any other physician, advance practice provider, medical student, or other health professional student that will be observing or involved in the sensitive examination for educational or training purposes was discussed with the Patient or Authorized Seed Buyer. The Patient or Authorized Seed Buyer has agreed to proceed with the sensitive examination. (Sensitive examination includes inspection and/or palpation of the breasts, pelvis, prostate and anorectal regions). EXAM: BP 120/64 Ht 5' 8.622 (1.74m) Wt 146 lb 9.6 oz (66.5kg) LMP 07/08/2024 BMI 21.89 kg/(m2). GENERAL: pleasant, female in no apparent distress HEENT: Normocephalic, atraumatic, mucus membranes moist, and no lesions NECK: Supple, full range of motion, no adenopathy, and thyroid normal DERMATOLOGY: Normal, without lesions, non-icteric, and non-hirsute BREAST: soft, non-tender, symmetric, no dominant mass, normal nipple-areolar complex, no lymphadenopathy, and no nipple discharge CHEST: Normal inspiratory effort ABDOMEN: soft, non-tender, and no masses PELVIC: external genitalia normal, normal Bartholin's glands, urethra, [place]'s glands, no vulvar lesions, no cervical lesions, good vaginal support, physiologic discharge present, normal appearing perineal body and perianal region BIMANUAL: uterus normal size, shape and consistency, no adnexal masses, and non-tender RECTOVAGINAL: rectovaginal exam negative for any masses or nodularity. NEURO: alert and oriented x3,exam grossly non-focal EXTREMITIES: normal ASSESSMENT/PLAN: 1) Health maintenance: Pap done with HPV. 2) Contraception: combined hormonal contraceptives. Contraceptive options reviewed and information provided. 3) STD screening: Declined STD check. 4) Follow up one year or sooner as needed Beth Quarles MD Referring Provider: SELF [[id number]] Allergies As of Date: 07/19/2024 Noted Allergy Reaction SEASONAL ALLERGIES 02/15/2019 16 - Unknown Comments: Trees and grasses verified by skin testing Date Reviewed: 07/19/2024 Reviewed by: Beth Quarles MD - Fully Assessed Reason for Visit: Well Woman [[id number]] Primary Visit Diagnosis:Encounter for gynecological examination (general) (routine) without abnormal findings [Z01.419] Other Visit Diagnoses:Screening for cervical cancer [Z12.4] Encounter for screening for human papillomavirus (HPV) [Z11.51] Order(s):PAP TEST [[id number]] Order #: [id number]. #:[id number] Prescriptions as of 07/19/2024 - fluticasone (FLONASE) 50 mcg/actuation nasal spray Use 2 Sprays in each nostril once daily. - Drospirenone-Ethinyl Estradiol 3-0.03 mg per tablet Take 1 tablet by mouth once daily. - 25/iron fum/folic/dha (-1 ORAL) Take by mouth. - Ascorbic Acid 1,000 mg tablet Take 1,000 mg by mouth once daily. - cetirizine (ZYRTEC) 10 mg tablet Take 1 tablet by mouth once daily. Problem List As Of Date 07/19/2024 Noted Resolved Dysmenorrhea [N94.6] 08/06/2009 12/04/2022 Acne [L70.9] 08/06/2009 resulting from assisted reproductive *10/16/2022 05/26/2023 Patient request for diagnostic testing [Z01.89] 10/16/2022 05/26/2023 Subchorionic hemorrhage of placenta, antepartum*11/27/2022 05/26/2023 Placenta previa specified as without hemorrhage*12/16/2022 01/01/2023 Level of Service: WELLNESS EXAMS EST 18-39 YRS [54721] Disposition: Return in 1 year (on 07/19/2025) for Annual Exam. Follow-up and Disposition History for Encounter Date Provider Department Center 07/19/2024 [id number] QUARLES Encounter Status:Closed by BETH QUARLES on 07/19/24 PROGRESS Observed: 07/19/2024 8:11 AM Status: COMPLETED Source: [facility] ID: [id number] Author: BETH QUARLES MD Service: ? Author Type: Physician Type: Progress Notes Filed: 07/19/2024 12:16 Note Text: Composite Bond Technician offered: Patient declines. Rubio is a 34 year old who presents for an annual gynecologic exam without complaints. IVF cycle planned for next year. Menses: no menses - continuous OCPs. Contraception: combined hormonal contraceptives HPV vaccine: No Last Pap: 05/30/2020 normal HPV: 05/20/2019 negative History of abnormal pap: No Last mammogram: never Sexually active: Yes OB History T1 L1 SAB0 IAB0 Ectopic0 Multiple0 Live Births1 Lumber Hacker History LMP: 07/08/2024 (Exact Date), Having periods Age at Menarche: Age at First : Age at Menopause: Lumber Hacker History Comments: Sexual Activity: Yes; Male Contraception: Pill PAST MEDICAL HISTORY Diagnosis Date Infertility management Infertility, female PAST SURGICAL HISTORY Procedure Laterality Date EXTRACTION, ERUPTED TOOTH OR EXPOSED ROOT (ELEVATION AND/OR FORCEPS REMOVAL) HSG HYSTEROSCOPY, DIAGNOSTIC (SEPARATE IVF ARC PACKAGE FAMILY HISTORY Problem Relation Age of Onset No Known Problems Mother Hypertension Father Arthritis Maternal Grandmother rheumatoid and osteoarthritis and osteoporosis Alzheimer's Disease Maternal Grandfather No Known Problems Paternal Grandmother other (smoker) Paternal Grandfather Diabetes Maternal Uncle other (pacemaker) Paternal Aunt SOCIAL HISTORY Social History Tobacco Use Smoking status: Never Smokeless tobacco: Never Vaping Use Vaping status: Never Used Substance Use Topics Alcohol use: Yes Comment: Occassionally Drug use: No REVIEW OF SYSTEMS Abdomen: No abdominal pain, nausea, vomiting, diarrhea, or constipation. No bloating, early satiety, indigestion, or increased flatulence. Bladder: No dysuria, gross hematuria, urinary frequency, urinary urgency, or incontinence. Breast: No breast lumps, nipple d/c, overlying skin changes, redness or skin retraction. Allergies and current medication updated:Yes SENSITIVE EXAM: The sensitive examination was discussed with the Patient or Patient's Authorized Seed Buyer. As applicable, any other physician, advance practice provider, medical student, or other health professional student that will be observing or involved in the sensitive examination for educational or training purposes was discussed with the Patient or Authorized Seed Buyer. The Patient or Authorized Seed Buyer has agreed to proceed with the sensitive examination. (Sensitive examination includes inspection and/or palpation of the breasts, pelvis, prostate and anorectal regions). EXAM: BP 120/64 Ht 5' 8.622 (1.74m) Wt 146 lb 9.6 oz (66.5kg) LMP 07/08/2024 BMI 21.89 kg/(m2). GENERAL: pleasant, female in no apparent distress HEENT: Normocephalic, atraumatic, mucus membranes moist, and no lesions NECK: Supple, full range of motion, no adenopathy, and thyroid normal DERMATOLOGY: Normal, without lesions, non-icteric, and non-hirsute BREAST: soft, non-tender, symmetric, no dominant mass, normal nipple-areolar complex, no lymphadenopathy, and no nipple discharge CHEST: Normal inspiratory effort ABDOMEN: soft, non-tender, and no masses PELVIC: external genitalia normal, normal Bartholin's glands, urethra, [place]'s glands, no vulvar lesions, no cervical lesions, good vaginal support, physiologic discharge present, normal appearing perineal body and perianal region BIMANUAL: uterus normal size, shape and consistency, no adnexal masses, and non-tender RECTOVAGINAL: rectovaginal exam negative for any masses or nodularity. NEURO: alert and oriented x3,exam grossly non-focal EXTREMITIES: normal ASSESSMENT/PLAN: 1) Health maintenance: Pap done with HPV. 2) Contraception: combined hormonal contraceptives. Contraceptive options reviewed and information provided. 3) STD screening: Declined STD check. 4) Follow up one year or sooner as needed Beth Quarles MD PROGRESS Observed: 07/13/2024 10:48 AM Status: COMPLETED Source: [facility] ID: [id number] Author: JULIUS HARRIS APRN.DRAMATIC TEACHER Service: ? Author Type: Nurse Practitioner Type: Progress Notes Filed: 07/13/2024 13:10 Note Text: CC: Patient presents with: Ear Problem: bilateral ears right is worse describes pain as achy that radiates down into neck with pressure that comes and goes Symptoms have been ongoing since Thursday HPI Rubio Castle is a 34 year old female who presents today for bilateral ear pain- right is worse. She describes the pain as achy with accompanying radiating soreness at right lateral neck. Denies drainage, itching or muffled sounds. She is not having pain on the external ear. She reports a sinus headache that started Thursday and resolved by Thursday when the ear pain started. She has environmental allergies and takes cetirizine every other day. Since Thursday she has been using her Flonase daily and talking sudafed. Denies SOB, cough, nasal drainage, sore throat, fever, chills, n/v, chest pain or palpitations. Review of Systems Constitutional: Negative for activity change, appetite change, chills, fatigue and fever. HENT: Positive for ear pain. Negative for congestion, ear discharge, hearing loss, nosebleeds, postnasal drip, rhinorrhea, sinus pressure, sinus pain, sneezing, sore throat and trouble swallowing. Eyes: Negative for pain and discharge. Respiratory: Negative for cough, chest tightness and shortness of breath. Cardiovascular: Negative for chest pain and palpitations. Gastrointestinal: Negative for abdominal pain, nausea and vomiting. Musculoskeletal: Negative for myalgias. Skin: Negative for color change. Allergic/Immunologic: Positive for environmental allergies. Neurological: Positive for headaches (Thursday). PAST MEDICAL HISTORY Diagnosis Date Infertility management Infertility, female PAST SURGICAL HISTORY Procedure Laterality Date EXTRACTION, ERUPTED TOOTH OR EXPOSED ROOT (ELEVATION AND/OR FORCEPS REMOVAL) HSG HYSTEROSCOPY, DIAGNOSTIC (SEPARATE IVF ARC PACKAGE ALLERGIES Seasonal Allergies MEDICATIONS fluticasone (FLONASE) 50 mcg/actuation nasal spray Use 2 Sprays in each nostril once daily. Drospirenone-Ethinyl Estradiol 3-0.03 mg per tablet Take 1 tablet by mouth once daily. 25/iron fum/folic/dha (-1 ORAL) Take by mouth. Ascorbic Acid 1,000 mg tablet Take 1,000 mg by mouth once daily. cetirizine (ZYRTEC) 10 mg tablet Take 1 tablet by mouth once daily. ferrous sulfate (IRON ORAL) Take by mouth. Every other day (Patient not taking: Reported on 12/24/2023) FAMILY HISTORY Problem Relation Age of Onset No Known Problems Mother Hypertension Father Arthritis Maternal Grandmother rheumatoid and osteoarthritis and osteoporosis Alzheimer's Disease Maternal Grandfather No Known Problems Paternal Grandmother other (smoker) Paternal Grandfather Diabetes Maternal Uncle other (pacemaker) Paternal Aunt Social History Tobacco Use Smoking status: Never Smokeless tobacco: Never Vaping Use Vaping status: Never Used Substance Use Topics Alcohol use: Not Currently Comment: Occassionally Drug use: No BP 112/74 Pulse 82 Temp 37.3 ?C (99.2 ?F) (Temporal) Wt 67.9 kg (149 lb 11.1 oz) LMP 07/06/2024 (Exact Date) SpO2 98% No BMI 23.45 kg/m? Physical Exam Constitutional: Appearance: Normal appearance. She is well-groomed. HENT: Head: Normocephalic. Jaw: No trismus or pain on movement. Right Ear: Hearing, ear canal and external ear normal. No decreased hearing noted. No drainage or swelling. A middle ear effusion is present. There is no impacted cerumen. No mastoid tenderness. Tympanic membrane is not erythematous or retracted. Left Ear: Hearing, ear canal and external ear normal. No decreased hearing noted. No drainage or swelling. A middle ear effusion is present. There is no impacted cerumen. No mastoid tenderness. Tympanic membrane is not erythematous or retracted. Nose: No nasal deformity, nasal tenderness, congestion or rhinorrhea. Right Turbinates: Not enlarged or pale. Left Turbinates: Not enlarged or pale. Right Sinus: No maxillary sinus tenderness or frontal sinus tenderness. Left Sinus: No maxillary sinus tenderness or frontal sinus tenderness. Mouth/Throat: Lips: Little Browning. Mouth: Mucous membranes are moist. Pharynx: Uvula midline. Postnasal drip present. Tonsils: 0 on the right. 0 on the left. Eyes: General: Lids are normal. No allergic shiner. Conjunctiva/sclera: Conjunctivae normal. Neck: Thyroid: No thyroid mass or thyroid tenderness. Trachea: Trachea normal. Cardiovascular: Rate and Rhythm: Normal rate and regular rhythm. Pulses: Normal pulses. Heart sounds: Normal heart sounds, S1 normal and S2 normal. No murmur heard. Pulmonary: Effort: Pulmonary effort is normal. Breath sounds: Normal breath sounds. No wheezing. Abdominal: General: Bowel sounds are normal. Palpations: Abdomen is soft. Musculoskeletal: Cervical back: Full passive range of motion without pain. Right lower leg: No edema. Left lower leg: No edema. Lymphadenopathy: Cervical: Cervical adenopathy present. Right cervical: Superficial cervical adenopathy present. No posterior cervical adenopathy. Left cervical: No superficial or posterior cervical adenopathy. Neurological: Mental Status: She is alert and oriented to person, place, and time. Psychiatric: Behavior: Behavior normal. Behavior is cooperative. ASSESSMENT/PLAN: 1. Dysfunction of both eustachian tubes - ICD9: 381.81, ICD10: H69.93 (primary diagnosis) No evidence of infection. Start treatment with prednisone for symptom management - Call the office if symptoms persist or worsen after one week. - Take Sudafed as needed. Continue with Flonase and Zyrtec 2. Cervical adenopathy - ICD9: 785.6, ICD10: R59.0 Right superficial cervical likely reactive. 3. Environmental allergies - ICD9: V15.09, ICD10: Z91.09 See #1 Julius Harris APRN.FRANCISCO CNOV Observed: 07/13/2024 10:40 AM Status: COMPLETED Source: [facility] Office Visit (INTMWS) RUBIO CASTLE ([id number]) 1990 F Date Time Provider Department 07/13/24 10:40 AM JULIUS HARRIS INTMWS During your visit today, we recorded the following information about you: Temperature Pulse Blood pressure Weight 99.2 degrees 82/minute 112/74 67.9 kg Last Period 07/06/24 Julius Harris APRN.DRAMATIC TEACHER 07/13/2024 1:10 PM Signed CC: Patient presents with: Ear Problem: bilateral ears right is worse describes pain as achy that radiates down into neck with pressure that comes and goes Symptoms have been ongoing since Thursday HPI Rubio Castle is a 34 year old female who presents today for bilateral ear pain- right is worse. She describes the pain as achy with accompanying radiating soreness at right lateral neck. Denies drainage, itching or muffled sounds. She is not having pain on the external ear. She reports a sinus headache that started Thursday and resolved by Thursday when the ear pain started. She has environmental allergies and takes cetirizine every other day. Since Thursday she has been using her Flonase daily and talking sudafed. Denies SOB, cough, nasal drainage, sore throat, fever, chills, n/v, chest pain or palpitations. Review of Systems Constitutional: Negative for activity change, appetite change, chills, fatigue and fever. HENT: Positive for ear pain. Negative for congestion, ear discharge, hearing loss, nosebleeds, postnasal drip, rhinorrhea, sinus pressure, sinus pain, sneezing, sore throat and trouble swallowing. Eyes: Negative for pain and discharge. Respiratory: Negative for cough, chest tightness and shortness of breath. Cardiovascular: Negative for chest pain and palpitations. Gastrointestinal: Negative for abdominal pain, nausea and vomiting. Musculoskeletal: Negative for myalgias. Skin: Negative for color change. Allergic/Immunologic: Positive for environmental allergies. Neurological: Positive for headaches (Thursday). PAST MEDICAL HISTORY Diagnosis Date Infertility management Infertility, female PAST SURGICAL HISTORY Procedure Laterality Date EXTRACTION, ERUPTED TOOTH OR EXPOSED ROOT (ELEVATION AND/OR FORCEPS REMOVAL) HSG HYSTEROSCOPY, DIAGNOSTIC (SEPARATE IVF ARC PACKAGE ALLERGIES Seasonal Allergies MEDICATIONS fluticasone (FLONASE) 50 mcg/actuation nasal spray Use 2 Sprays in each nostril once daily. Drospirenone-Ethinyl Estradiol 3-0.03 mg per tablet Take 1 tablet by mouth once daily. 25/iron fum/folic/dha (-1 ORAL) Take by mouth. Ascorbic Acid 1,000 mg tablet Take 1,000 mg by mouth once daily. cetirizine (ZYRTEC) 10 mg tablet Take 1 tablet by mouth once daily. ferrous sulfate (IRON ORAL) Take by mouth. Every other day (Patient not taking: Reported on 12/24/2023) FAMILY HISTORY Problem Relation Age of Onset No Known Problems Mother Hypertension Father Arthritis Maternal Grandmother rheumatoid and osteoarthritis and osteoporosis Alzheimer's Disease Maternal Grandfather No Known Problems Paternal Grandmother other (smoker) Paternal Grandfather Diabetes Maternal Uncle other (pacemaker) Paternal Aunt Social History Tobacco Use Smoking status: Never Smokeless tobacco: Never Vaping Use Vaping status: Never Used Substance Use Topics Alcohol use: Not Currently Comment: Occassionally Drug use: No BP 112/74 Pulse 82 Temp 37.3 ?C (99.2 ?F) (Temporal) Wt 67.9 kg (149 lb 11.1 oz) LMP 07/06/2024 (Exact Date) SpO2 98% No BMI 23.45 kg/m? Physical Exam Constitutional: Appearance: Normal appearance. She is well-groomed. HENT: Head: Normocephalic. Jaw: No trismus or pain on movement. Right Ear: Hearing, ear canal and external ear normal. No decreased hearing noted. No drainage or swelling. A middle ear effusion is present. There is no impacted cerumen. No mastoid tenderness. Tympanic membrane is not erythematous or retracted. Left Ear: Hearing, ear canal and external ear normal. No decreased hearing noted. No drainage or swelling. A middle ear effusion is present. There is no impacted cerumen. No mastoid tenderness. Tympanic membrane is not erythematous or retracted. Nose: No nasal deformity, nasal tenderness, congestion or rhinorrhea. Right Turbinates: Not enlarged or pale. Left Turbinates: Not enlarged or pale. Right Sinus: No maxillary sinus tenderness or frontal sinus tenderness. Left Sinus: No maxillary sinus tenderness or frontal sinus tenderness. Mouth/Throat: Lips: Little Browning. Mouth: Mucous membranes are moist. Pharynx: Uvula midline. Postnasal drip present. Tonsils: 0 on the right. 0 on the left. Eyes: General: Lids are normal. No allergic shiner. Conjunctiva/sclera: Conjunctivae normal. Neck: Thyroid: No thyroid mass or thyroid tenderness. Trachea: Trachea normal. Cardiovascular: Rate and Rhythm: Normal rate and regular rhythm. Pulses: Normal pulses. Heart sounds: Normal heart sounds, S1 normal and S2 normal. No murmur heard. Pulmonary: Effort: Pulmonary effort is normal. Breath sounds: Normal breath sounds. No wheezing. Abdominal: General: Bowel sounds are normal. Palpations: Abdomen is soft. Musculoskeletal: Cervical back: Full passive range of motion without pain. Right lower leg: No edema. Left lower leg: No edema. Lymphadenopathy: Cervical: Cervical adenopathy present. Right cervical: Superficial cervical adenopathy present. No posterior cervical adenopathy. Left cervical: No superficial or posterior cervical adenopathy. Neurological: Mental Status: She is alert and oriented to person, place, and time. Psychiatric: Behavior: Behavior normal. Behavior is cooperative. ASSESSMENT/PLAN: 1. Dysfunction of both eustachian tubes - ICD9: 381.81, ICD10: H69.93 (primary diagnosis) No evidence of infection. Start treatment with prednisone for symptom management - Call the office if symptoms persist or worsen after one week. - Take Sudafed as needed. Continue with Flonase and Zyrtec 2. Cervical adenopathy - ICD9: 785.6, ICD10: R59.0 Right superficial cervical likely reactive. 3. Environmental allergies - ICD9: V15.09, ICD10: Z91.09 See #1 Julius Harris APRN.DRAMATIC TEACHER Allergies As of Date: 07/13/2024 Noted Allergy Reaction SEASONAL ALLERGIES 02/15/2019 16 - Unknown Comments: Trees and grasses verified by skin testing Date Reviewed: 07/13/2024 Reviewed by: Julius Harris, SYDNEE.DRAMATIC TEACHER - Fully Assessed Reason for Visit: Ear Problem [38] Cmt: bilateral ears right is worse describes pain as achy that radiates down into neck with pressure that comes and goes Symptoms have been ongoing since Thursday Primary Visit Diagnosis:Dysfunction of both eustachian tubes [H69.93] Other Visit Diagnoses:Cervical adenopathy [R59.0] Environmental allergies [Z91.09] Order(s):predniSONE (DELTASONE) 20 mg tabletTake 2 tablets by mouth once daily for 5 days.Disp: 10 tabletRfl: 0 Prescriptions as of 07/13/2024 - fluticasone (FLONASE) 50 mcg/actuation nasal spray Use 2 Sprays in each nostril once daily. - Drospirenone-Ethinyl Estradiol 3-0.03 mg per tablet Take 1 tablet by mouth once daily. - predniSONE (DELTASONE) 20 mg tablet Take 2 tablets by mouth once daily for 5 days. - 25/iron fum/folic/dha (-1 ORAL) Take by mouth. - Ascorbic Acid 1,000 mg tablet Take 1,000 mg by mouth once daily. - cetirizine (ZYRTEC) 10 mg tablet Take 1 tablet by mouth once daily. 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 Medications Discontinued During This Encounter Prescriptions - ferrous sulfate (IRON ORAL) (Discontinued) Reported on 12/24/2023 Encounter Status:Closed by JULIUS HARRIS on 07/13/24 ALLERGIES DATE TYPE / CODE NAME / CODE REACTION SEVERITY SOURCE 02/15/2019 [facility]/[id number] (SNOMED CT) SEASONAL ALLERGIES UNKNOWN [facility] ENCOUNTERS ADMIT/DISCHARGE ACCOUNT NUMBER ADMITTING ENCOUNTER CLASS LOC ATION SOURCE 05/16/2025/ 5 [id number] Ambulatory [facility] 05/16/2025/ 5 [id number] Ambulatory [facility] 05/09/2025/ 5 [id number] Ambulatory [facility] 05/09/2025/ 5 [id number] Ambulatory [facility] 05/03/2025/ 5 [id number] Ambulatory [facility] ing:OGWR [facility] 05/03/2025/ 5 [id number] Ambulatory [facility] 04/18/2025/ 5 [id number] Ambulatory [facility] 04/03/2025/ 5 [id number] Ambulatory [facility] 04/03/2025/ 5 [id number] Ambulatory [facility] ing:OGWR [facility] 03/20/2025/ 5 [id number] Ambulatory [facility] 03/06/2025/ 5 [id number] Ambulatory [facility] ing:WOL2 [facility] 03/06/2025/ 5 [id number] Ambulatory [facility] 02/06/2025/ 5 [id number] Ambulatory [facility] 01/31/2025/ 5 [id number] [facility] [id number] [facility]10/2025/ 5 [id number] Ambulatory [facility] ing:[facility] 01/10/2025/ 5 [id number] Ambulatory [facility] 12/23/2024/ 5 [id number] Ambulatory [facility] 11/18/2024/ 5 [id number] Ambulatory [facility] 11/18/2024/ 5 [id number] Ambulatory [facility] ing:[facility]WR [facility] 10/20/2024/ 5 [id number] Ambulatory [facility] ing:[facility] 10/20/2024/ 5 [id number] Ambulatory [facility] 07/19/2024/ 4 [id number] Ambulatory [facility] 07/13/2024/ 4 [id number] Ambulatory [facility]:WOIA [facility] PAYERS ENCOUNTER GUARANTOR PAYER SUBSCRIBER SOURCE 05/16/2025 Primary Insurance:BLUE ACCESS PPOPolicy Number: [id number] Date:6946-93-07Gzxy Name:Marc DEEOB: [id number] [place], [place] [address] [place] [address] 05/16/2025 Primary Insurance:BLUE ACCESS PPOPolicy Number: [id number] Date:1225-16-86Zgwq Name:Marc NARANJOMANDOB: [id number] [address] 05/09/2025 Primary Insurance:BLUE ACCESS PPOPolicy Number: [id number] Date:4243-41-91Orkz Name:Marc Douglas BILLMANDOB: [id number] [address] 05/09/2025 Primary Insurance:BLUE ACCESS PPOPolicy Number: [id number] Date:7136-55-71Lhmc Name:Marc Douglas BILLMANDOB: [id number] [address] 05/03/2025 Primary Insurance:BLUE ACCESS PPOPolicy Number: [id number] Date:0429-15-73Uldr Name:Marc NARANJOMANDOB: [id number] [address] 05/03/2025 Primary Insurance:BLUE ACCESS PPOPolicy Number: [id number] Date:5428-71-72Mmxl Name:Marc NARANJOMANDOB: [id number] [address] 04/18/2025 Primary Insurance:BLUE ACCESS PPOPolicy Number: [id number] Date:2779-54-20Vrxh Name:Marc Douglas BILLMANDOB: [id number] [address] 04/03/2025 Primary Insurance:BLUE ACCESS PPOPolicy Number: [id number] Date:8692-89-43Ixdr Name:Marc NARANJOMANDOB: [id number] [address] 04/03/2025 Primary Insurance:BLUE ACCESS PPOPolicy Number: [id number] Date:2998-52-66Lqse Name:Marc BERGERON Stella BILLMANDOB: [id number] [place], [place] [address] [place] [address] 03/20/2025 Primary Insurance:BLUE ACCESS PPOPolicy Number: [id number] Date:5152-60-89Hdue Name:Marc NARANJOMANDOB: [id number] [place], [place] [id number] [place] [address] 03/06/2025 Primary Insurance:BLUE ACCESS PPOPolicy Number: [id number] Date:5700-41-53Rzoq Name:Marc NARANJOMANDOB: [id number] [address] 03/06/2025 Primary Insurance:BLUE ACCESS PPOPolicy Number: [id number] Date:8919-53-50Hzrk Name:Marc BERGERON Stella MARCELLAMANDOB: [id number] [address] 02/06/2025 Primary Insurance:BLUE ACCESS PPOPolicy Number: [id number] Date:9744-37-46Utnv Name:Marc BERGERON Stella MARCELLAMANDOB: [id number] [address] 01/31/2025 Primary Insurance:BLUE ACCESS PPOPolicy Number: [id number] Date:9554-65-82Snpb Name:Marc BERGERON Stella MARCELLAMANDOB: [id number] [address] 01/31/2025 Primary Insurance:BLUE ACCESS PPOPolicy Number: [id number] Date:6206-96-72Fosk Name:Marc BERGERON Stella MARCELLAMANDOB: [id number] [address] 01/10/2025 Primary Insurance:BLUE ACCESS PPOPolicy Number: [id number] Date:0262-61-66Ivxm Name:Marc BERGERON Stella MARCELLAMANDOB: [id number] [address] 01/10/2025 Primary Insurance:BLUE ACCESS PPOPolicy Number: [id number] Date:3469-12-67Pjem Name:Marc NARANJOMANDOB: [id number] [address] 12/23/2024 Primary Insurance:BLUE ACCESS PPOPolicy Number: [id number] Date:3949-93-06Zvdt Name:Marc NARANJOMANDOB: [id number] [address] 11/18/2024 Primary Insurance:BLUE ACCESS PPOPolicy Number: [id number] Date:1725-56-02Jhtf Name:Marc NARANJOMANDOB: [id number] [address] 11/18/2024 Primary Insurance:BLUE ACCESS PPOPolicy Number: [id number] Date:6685-20-64Kpfl Name:Marc Douglas BILLMANDOB: [id number] [address] 10/20/2024 Primary Insurance:BLUE ACCESS PPOPolicy Number: [id number] Date:6499-70-02Gonk Name:Marc NARANJOMANDOB: [id number] [address] 10/20/2024 Primary Insurance:BLUE ACCESS PPOPolicy Number: [id number] Date:9376-01-74Ulkf Name:Marc Douglas BILLMANDOB: [id number] [address] 07/19/2024 Primary Insurance:BLUE ACCESS PPOPolicy Number: [id number] Date:9037-96-29Hkix Name:Marc Douglas BILLMANDOB: [id number] [address] 07/13/2024 Primary Insurance:BLUE ACCESS PPOPolicy Number: [id number] Date:6832-14-55Brhp Name:Marc DEEOB: [id number] [address]
--- OUTSIDE RECORDS SUMMARY | 2025-05-16 08:54 | XMS RPT_ITS ---
Author Name Auto Generated Organization OHIP Care Team Providers Care Properties Supervisor Name Role Phone GANTA, ISA Primary Care Unavailable JULIUS HARRIS Attending Unavailable GANTA, ISA Primary Care Unavailable BETH QUARLES Attending Unavailable GANTA, ISA Primary Care Unavailable HAURY, AUNDREA Attending Unavailable GANTA, ISA Primary Care Unavailable HAURY, AUNDREA Referring Unavailable GANTA, ISA Primary Care Unavailable CARLOS BAZZI Attending Unavailable GANTA, ISA Primary Care Unavailable BALAJI CASIANO Referring Unavailable GANTA, ISA Primary Care Unavailable BALAJI CASIANO Referring Unavailable CASIANOBALAJI Attending Unavailable GANTA, ISA Primary Care Unavailable CARLOS BAZZI Attending Unavailable GANTA, ISA Primary Care Unavailable GANTA, ISA Primary Care Unavailable HAURY, AUNDREA Attending Unavailable GANTA, ISA Primary Care Unavailable LEXI CASIANOICA Referring Unavailable GANTA, ISA Primary Care Unavailable CARLOS BAZZI Attending Unavailable GANTA, ISA Primary Care Unavailable GANTA, ISA Primary Care Unavailable GANTA, ISA Primary Care Unavailable HAURY, AUNDREA Referring Unavailable GANTA, ISA Primary Care Unavailable HAURY, AUNDREA Referring Unavailable GANTA, ISA Primary Care Unavailable HAURY, AUNDREA Referring Unavailable CARLOS BAZZI Attending Unavailable HAURY, AUNDREA Attending Unavailable GANTA, ISA Primary Care Unavailable GANTA, ISA Primary Care Unavailable LEXI CASIANOICA Referring Unavailable LISETH VASQUEZ Attending Unavail able GANTA, ISA Primary Care Unavailable HAURY, AUNDREA Referring Unavailable CASIANOLEXIBALAJI Attending Unavailable GANTA, ISA Primary Care Unavailable SUSAN MARTELL Attending Unavailable GANTA, ISA Primary Care Unavailable LISETH VASQUEZ Attending Unavail able GRICEL MILLER Attending Unavailable HAURY, AUNDREA Referring Unavailable GANTA, ISA Primary Care Unavailable HAURY, AUNDREA Referring Unavailable ISA BURNETT Primary Care Unavailable PROBLEMS DATE TYPE CONDITION / CODE ATTENDING STATUS [facility] 05/16/2025 Active 37 weeks gestati on of (HCC) / Z3A.37(ICD-10) CARLOS BAZZI Active [facility] 05/08/2025 Active Excessive growth affecting management of in third trimester, single or unspecified fetus (HCC) / O36.63X0(ICD-10) CARLOS BAZZI Active [facility] 05/03/2025 Active Polyhydramnios i n third trimester complication, single or unspecified fetus (HCC) / O40.3XX0(ICD-10) CARLOS BAZZI Active [facility] 05/09/2025 Active 36 weeks gestati on of (HCC) / Z3A.36(ICD-10) CARLOS BAZZI Active [facility] 01/31/2025 Active result ing from assisted reproductive technology, antepartum (HCC) / O09.819(ICD-10) NA Active [facility] 05/03/2025 Active Obesity affectin g in third trimester, unspecified obesity type (HCC) / O99.213(ICD-10) NA Active [facility] 03/20/2025 Active Supervision of h igh risk in third trimester (HCC) / O09.93(ICD-10) CARLOS BAZZI Active [facility] 04/18/2025 Active 33 weeks gestati on of (HCC) / Z3A.33(ICD-10) CARLOS BAZZI Active [facility] 04/18/2025 Active Need for influen za vaccination / Z23(ICD-10) CARLOS BAZZI Active [facility] 04/03/2025 Active 31 weeks gestati on of (HCC) / Z3A.31(ICD-10) BALAJI CASIANO Active [facility] 03/20/2025 Active 29 weeks gestati on of (HCC) / Z3A.29(ICD-10) AUNDREA PARKS Active [facility] 03/06/2025 Active Supervision of h igh risk in second trimester (HCC) / O09.92(ICD-10) NA Active [facility] 03/06/2025 Active 23 weeks gestati on of (HCC) / Z3A.23(ICD-10) NA Active [facility] 03/06/2025 Active Need for vaccina tion / Z23(ICD-10) LISETH VASQUEZ Active [facility] 03/06/2025 Active 27 weeks gestati on of (HCC) / Z3A.27(ICD-10) LISETH VASQUEZ Active [facility] 01/31/2025 Active abnormalit y affecting management of mother, single or unspecified fetus (HCC) / O35.9XX0(ICD-10) GRICEL MILLER Active [facility] 01/10/2025 Active Encounter for fe dell anatomic survey (HCC) / Z36.89(ICD-10) NA Active [facility] 01/10/2025 Active 19 weeks gestati on of (HCC) / Z3A.19(ICD-10) NA Active [facility] 01/10/2025 Active result ing from in vitro fertilization in second trimester (HCC) / O09.812(ICD-10) NA Active [facility] 12/23/2024 Active 17 weeks gestati on of (HCC) / Z3A.17(ICD-10) AUNDREA PARKS Active [facility] 10/20/2024 Active Encounter for supervision of high risk in first trimester, antepartum (HCC) / O09.91(ICD-10) NA Active [facility] 11/18/2024 Active 9 weeks gestatio n of (HCC) / Z3A.09(ICD-10) NA Active [facility] 10/20/2024 Active Encounter for supervision of high risk in first trimester, antepartum / O09.91(ICD-10) NA Active [facility] 10/20/2024 Active History of gesta tional hypertension / Z87.59(ICD-10) NA Active [facility] 10/20/2024 Active result ing from assisted reproductive technology, antepartum / O09.819(ICD-10) NA Active [facility] 10/20/2024 Active 9 weeks gestatio n of / Z3A.09(ICD-10) AUNDREA PARKS Active [facility] 10/20/2024 Active with u ncertain dates in first trimester / Z34.91(ICD-10) AUNDREA PARKS Active [facility] PROCEDURES No Procedure Records Found RESULTS PROGRESS Observed: 05/17/2025 8:45 AM Status: COMPLETED Source: [facility] HNO ID: [id number] Author: PREETHI PENALOZA RN Service: ? Author Type: Registered Nurse Type: Progress Notes Filed: 05/17/2025 08:47 Note Text: Patient delivered via by Dr. Bazzi on 05/17/25 at [facility]. See OB history. Preethi Penaloza RN PROGRESS Observed: 05/09/2025 12:33 PM Status: COMPLETED Source: [facility] HNO ID: [id number] Author: CARLOS BAZZI MD Service: ? Author [...] None Contractions: TOCO: None Interpretation: Reactive SIGNATURE: aCrlos Bazzi MD PROGRESS Observed: 05/03/2025 11:17 AM Status: COMPLETED Source: [facility] HNO ID: [id number] Author: LISETH VASQUEZ MD Service: ? Author [...] was discussed with the patient or authorized patient relations representative. The patient or authorized patient relations representative has agreed to proceed with the [...] 11:01 AM Status: F Source: [facility] GRP B STREPTOCOCCUS DNA, ROU MONIQUE : Not detected Performed By: #### GBPCR ### # [facility] CLIA [id number] [address] [place] [address] [place] CNPN Observed: 04/19/2025 12:00 AM Status: COMPLETED Source: [facility] Telephone (OBGYWM) RUBIO CASTLE ([id number]) 1990 F Date Time Provider Department 04/19/25 CARLOS BAZZI OBSOCRATES During your visit today, we recorded the following information about you: Preethi Penaloza RN 04/19/2025 8:52 AM Signed Breast pump received from [employer]. To to sign. NELSON Cota Trisha, RN 04/21/2025 [...] Observed: 04/03/2025 11:09 AM Status: COMPLETED Source: [facility] ID: [id number] Author: BALAJI CASIANO APRN.CNM Service: ? Author Type: Garnett Feeder Type: Progress Notes Filed: 04/03/2025 11:26 Note [...] 9:35 AM Status: F Source: [facility] Order Comment: Specimen Type : BLOOD SPECIMEN Ordering Facility: [facility] Address: [address] [place] [address] TYPE CODE TESTS RESULT OUT OF RANGE REFERENCE UNITS LAB 2345-7(LOINC) Glucose SerPl-mCnc 103 74-134 mg/dL Result Comment: [place] of Obstetricians and Gynecologists (Bonds/Rosina) guidelines state a gestational diabetes mellitus positive screen is made, in women not previously diagnosed with overt diabetes, when the 1 hr plasma glucose level is equal to or above 140 mg/dL. The [facility] Ase Certified Technician and [facility] [place] recommends a 135 mg/dL cutoff. Performed By: #### GLTGST ## ## [facility] CLIA [id number] [address] [place] [address] [place] REAGIN+T PALLIDUM IGG+IGM SERPL-IMP Collected: 03/06/2025 9:35 AM Status: F Source: [facility] Comment: Specimen Type : BLOOD SPECIMEN Ordering Facility: [facility] Address: [address] [place] [address] TYPE CODE TESTS RESULT OUT OF RANGE REFERENCE UNITS LAB 38912-2(LOINC) T pallidum IgG+IgM Ser Ql [place] Nonreactive Nonreactive LAB 14193-7(INC) Reagin+T pallidum IgG+IgM SerPl-Imp Cannot exclude recent Treponemal infection if specimen collected within 7-10 days after appearance of suspect lesions or 2-3 weeks after an exposure. Clinical correlation is required. Performed By: #### 74313-9 # ### [facility] CLIA [id number] [address] [place] [address] CBC W AUTO DIFF BLD Collected: 03/06/2025 9:[address] atus: F Source: [facility] Order Comment: Specimen Type : BLOOD SPECIMEN Ordering Facility: [facility] Address: [address] [place] [address] TYPE CODE TESTS RESULT OUT OF RANGE [...] MCHC RBC Auto-mCnc 34.9 30.5-36.0 g/dL LAB 26990-8(LOINC) RDW RBC-Rto 13.3 11.5-15.0 % LAB 777-3(LOINC) Platelet # Bld Auto 170 150-400 k/uL LAB 91544-1(LOINC) PMV Bld Auto 9.6 9.0-12.7 fL LAB [...] # Bld Auto 0.04 <0.11 k/uL LAB 18711-0(LOINC) Imm Granulocytes/cezar k NFr Bld Auto 1.2 % LAB 86411-2(INC) Imm Granulocytes # Bld Auto 0.12 High <0.10 k/uL LAB 31207-5(LOINC) nRBC/100 WBC Bld-Rto 0.0 /100 WBC LAB 771-6(INC) nRBC # Bld Auto <0.01 <0.01 k/u L LAB 19742-6(INC) Differential method Bld Auto Performed By: #### 36845-5 # ### [id number] [address] [place] [address] OF [facility] PROGRESS Observed: 03/06/2025 8:38 AM Status: COMPLETED Source: [facility] HNO ID: [id number] Author: BRITTANIE SHEFFIELD MA Service: ? Author Type: Stonework Supervisor Type: Progress Notes Filed: 03/06/2025 09:38 Note [...] severely ill: Yes Patient denies history of Guillain-Clayton Syndrome (a severe paralytic illness): Yes Tdap Adacel injection was given without incident. See immunizations for details of immunizations administered today. VIS sheet provided: Yes Provider Javad was present in office at time of injection. Brittanie Sheffield MA PROGRESS Observed: 01/31/2025 9:50 AM Status: COMPLETED Source: [facility] HNO ID: [id number] Author: GRICEL MILLER MD Service: ? Author Type: Physician Type: Progress Notes Filed: 01/31/2025 09:57 Note Text: NAME: [place] CL[facility]IC Number.: [id number] Date of : 1990 Date of Visit: [...] which included preparing to see the patient, [id number] patient care, completing clinical documentation, obtaining and/or reviewing separately obtained history, counseling and educating the patient/family/caregiver, communicating with other HCPs (not separately reported), and communicating results to the patient/family/caregiver. Sincerely, Gricel Miller MD January 31, 2025 Observed: 01/31/2025 9:01 AM Status: F Source: [facility] + +-+ Pediatric Cardiology Echocardiogram Report + +-+ NAME: MISS RUBIO CASTLE : 1990 PT ID#: [id number] Age: 34 years Sex: F STUDY DATE: 01/31/2025 9:01:17 AM ANALILIA: 05/31/2025 GA: 22w6d Image Quality: Referring Physician: Aundrea Diagnosing Physician: Gricel Miller MD Resource Paraprofessional: Temitope Elkins [facility] 2nd Resource Paraprofessional: Diagnosis: O35.3LH1Rutazsbnh abnormality and damage, single fetus or unspecified Procedure Code: 41561, 95693, 82529 Echo, Complete (w/Doppler and color) Exam Location: [facility] (). Indications: Evaluate cardiac anatomy, [...] rate and rhythm. HR 136 bpm Mechanical MO 113 ms Segmental Anatomy, Cardiac Position and [...] on 01/31/2025 at 9:50:11 AM Final CC [employer] [facility] Image : [id number] See Link below for Image PROGRESS Observed: 01/10/2025 9:29 AM Status: COMPLETED Source: [facility] HNO ID: [id number] Author: BALAJI CASIANO APRN.CNM Service: ? Author Type: Garnett Feeder Type: Progress Notes Filed: 01/10/2025 09:42 Note Text: LEE- PROGRESS Observed: 12/23/2024 8:31 AM Status: COMPLETED Source: [facility] HNO ID: [id number] Author: AUNDREA PARKS APRN.PRESIDENTIAL SUPPORT SPECIALIST Service: ? Author Type: Nurse Practitioner Type: Progress Notes Filed: 12/23/2024 08:40 Note Text: EH - S: Rubio is a 34 year old female who presents at 17w2d for a routine visit. Feeling movement. Denies headache, visual changes, chest pain, shortness of breath, vaginal bleeding, leakage of fluid, or dysuria. Feeling well, no complaints. Going to [place] next month. O: See flow sheet Gen: No apparent distress Abd: Gravid, nontender ASSESSMENT/PLAN: 1. Supervision of high risk in second trimester ([facility]) - ICD9: V23.9, ICD10: O09.92 (primary diagnosis) - Continue PNV - Reviewed travel precautions 2. 17 weeks gestation of ([facility]) - ICD9: V22.2, ICD10: Z3A.17 - Anatomy ultrasound next visit 3. resulting from assisted reproductive technology, antepartum ([facility]) - ICD9: V23.85, ICD10: O09.819 - echo ordered 4. History of gestational hypertension - ICD9: V13.29, ICD10: Z87.59 - Continue LDA PTL precautions reviewed. RTO in 4 weeks or sooner as needed. Aundrea Parks APRN.FRANCISCO MATTHEWS Observed: 10/21/2024 12:00 AM Status: COMPLETED Source: [facility] Telephone (OBGYWM) RUBIO CASTLE ([id number]) 1990 F Date Time Provider Department 10/21/24 [...] Date Reviewed: 10/20/2024 Reviewed by: Aundrea Parks APRN.PRESIDENTIAL SUPPORT SPECIALIST - Fully Assessed Reason for Visit: Question (OB Question) [3602] Prescriptions as of 10/21/2024 - aspirin, enteric [...] UR Collected: 12:08 PM Status: F Source: [facility] Order Comment: Specimen Type : URINE SPECIMEN Ordering Facility: [facility] Address: [address] [place] [address] TYPE CODE TESTS RESULT OUT OF RANGE [...] 1-150. Performed By: #### 2890-2 ## ## [facility] CLIA [id number] [address] OF [facility] RUBELLA IGG ANTIBODY Collected: 025 12:02 PM Status: F Source: [facility] Comment: Specimen Type : BLOOD SPECIMEN Ordering Facility: [facility] Address: [address] [place] [address] TYPE CODE TESTS RESULT OUT OF RANGE REFERENCE UNITS LAB RUBGQL RUBELLA IGG AB, QUAL Positive Positive Result Comment: The result s uggests recent or past exposure to Rubella virus or history of Rubella vaccination. Positive result may also be seen due to presence of passively-transferred antibodies. Please correlate with patient's history. Performed By: #### RUBIGG ## ## [facility] CLIA [id number] [address] [place] [address] OF [place] HCV AB SER QL Collected: 5 12:02 PM Status: F Source: [facility] Comment: Specimen Type : BLOOD SPECIMEN Ordering Facility: [facility] Address: [address] [place] [address] TYPE CODE TESTS RESULT OUT OF RANGE REFERENCE UNITS LAB 94393-7(LOINC) HCV Ab Ser Ql Negative Negative Result Comment: The result s uggests no evidence of active infection with Hepatitis C virus. Should recent infection be suspected, repeat testing may be considered 4- 6 weeks after this draw. Performed By: #### 95579-1 # ### [facility] CLIA [id number] [address] [place] [address] [place] [address] [place] CBC W AUTO DIFF BLD Collected: 10/20/2024 12:02 PM S tatus: F Source: [facility] Order Comment: Specimen Type : BLOOD SPECIMEN Ordering Facility: [facility] Address: [address] [place] [address] TYPE CODE TESTS RESULT OUT OF RANGE REFERENCE UNITS LAB 6690-2(LOINC) WBC # Bld Auto 8.54 3.70-11.00 k/uL LAB 789-8(LOINC) RBC # Bld Auto 4.11 3.90-5.20 m/ uL LAB 718-7(LOINC) Hgb Bld-mCnc 13.4 11.5-15.5 g/dL LAB 4544-3(LOINC) Hct VFr Bld Auto 38.3 36.0-46.0 % LAB 787-2(LOINC) MCV RBC Auto 93.2 80.0-100.0 fL LAB 785-6(LOINC) MCH RBC Qn Auto 32.6 26.0-34.0 p g LAB 786-4(LOINC) MCHC RBC Auto-mCnc 35.0 30.5-36.0 g/dL LAB 47301-1(LOINC) RDW RBC-Rto 11.6 11.5-15.0 % LAB 777-3(LOINC) Platelet # Bld Auto 274 150-400 k/uL LAB 29320-6(LOINC) PMV Bld Auto 9.4 9.0-12.7 fL LAB [...] # Bld Auto 0.05 <0.11 k/uL LAB 79082-1(LOINC) Imm Granulocytes/cezar k NFr Bld Auto 0.2 % LAB 59887-3(LOINC) Imm Granulocytes # Bld Auto <0.03 <0.10 k/uL LAB 43022-6(LOINC) nRBC/100 WBC Bld-Rto 0.0 /100 WBC LAB 771-6(LOINC) nRBC # Bld Auto <0.01 <0.01 k/u L LAB 07393-7(LOINC) Differential method Bld Auto Performed By: #### 97723-1 # ### [facility] CLIA [id number] [address] [place] [address] DEPRECATED HGB A1C BLD Collected: 10/20 12:02 PM Status: F Source: [facility] Order Comment: Specimen Type : BLOOD SPECIMEN Ordering Facility: [facility] Address: [address] [place] [address] TYPE CODE TESTS RESULT OUT OF RANGE REFERENCE UNITS LAB 4548-4(INC) HbA1c MFr Bld 4.9 4.3-5.6 % Result Comment: [place] Kassandra betes Association guidelines indicate that patients with HgbA1c in the range 5.7-6.4% are at increased risk for development of diabetes, and intervention by lifestyle modification may be beneficial. HgbA1c greater or equal to 6.5% is considered diagnostic of diabetes. LAB 38239-8(LOINC) Est. average glucose Bld gHb Est-mCnc 94 mg/dL Result Comment: eAG: (Estima abdoulaye average glucose) is a calculated value from HgbA1c and is patient relations representative of the average blood glucose level in the last 2-3 month period. Performed By: #### 96174-4 # ### [facility] CLIA [id number] [address] [place] [address] OF [facility] HBV SURFACE AG SER QL Collected: 2024 12:02 PM Status: F Source: [facility] Comment: Specimen Type : BLOOD SPECIMEN Ordering Facility: [facility] Address: [address] [place] [address] TYPE CODE TESTS RESULT OUT OF RANGE REFERENCE UNITS LAB 5195-3([facility]) HBV surface Ag Ser Ql Negative Negative Performed By: #### 5195-3, 3 1201-7, 02881-9 #### [facility] CLIA [id number] [address] [place] [address] HIV1+2 AB SERPL QL IA Collected: 2024 12:02 PM Status: F Source: [facility] Comment: Specimen Type : BLOOD SPECIMEN Ordering Facility: [facility] Address: [address] [place] [address] TYPE CODE TESTS RESULT OUT OF RANGE REFERENCE UNITS LAB 58023-1(INC) HIV 1+2 Ab+HIV1 p24 Ag SerPl Ql IA Nonreactive Nonreactive LAB 48316-9([facility]) HIV 1 AND 2 Ab SerPlBld IA.rapid Result Comment: Test not ind icated. LAB 92656-1([facility]) HIV IA algorithm interp SerPlBld-Imp Result Comment: No evidence of HIV-1 or HIV-2 infection. Should recent infection be suspected, repeat testing may be considered 2-3 weeks after this draw. [place] Rev. Code 3701.243(E): This information has been [...] test results or diagnoses. Performed By: #### 5195-3, 3 1201-7, 36924-3 #### [facility] CLIA [id number] [address] [place] [address] REAGIN+T PALLIDUM IGG+IGM SERPL-IMP Collected: 10/20/2024 12:02 PM Status: F Source: [facility] Order Comment: Specimen Type : BLOOD SPECIMEN Ordering Facility: [facility] Address: [address] [place] [address] TYPE CODE TESTS RESULT OUT OF RANGE REFERENCE UNITS LAB 92402-3(INC) T pallidum IgG+IgM Ser Ql [place] Nonreactive Nonreactive LAB 98790-1([facility]) Reagin+T pallidum IgG+IgM SerPl-Imp Cannot exclude recent Treponemal infection if specimen collected within 7-10 days after appearance of suspect lesions or 2-3 weeks after an exposure. Clinical correlation is required. Performed By: #### 5195-3, 3 1201-7, 57029-5 #### [facility] CLIA [id number] [address] [place] [address] [place] COMP METAB 2000 PNL SERPL Collected: 12:02 PM Status: F Source: [facility] Comment: Specimen Type : BLOOD SPECIMEN Ordering Facility: [facility] Address: [address] [place] [address] TYPE CODE TESTS RESULT OUT OF RANGE REFERENCE UNITS LAB 2885-2(LOINC) Prot SerPl-mCnc 6.8 6.3-8.0 g/dL LAB 1751-7(LOINC) Albumin SerPl-mCnc 4.1 3.9-4.9 g/dL LAB 16649-3(LOINC) Calcium SerPl-mCnc 9.4 8.5-10.2 mg/dL LAB 1975-2(LOINC) Bilirub SerPl-mCnc 0.2 0.2-1.3 mg/dL LAB 6768-6(LOINC) ALP SerPl-cCnc 55 34-123 U/L LAB 1920-8(LOINC) AST SerPl-cCnc 16 13-35 U/L LAB 1742-6(LOINC) ALT SerPl-cCnc 21 7-38 U/L LAB 2345-7(LOINC) Glucose SerPl-mCnc 83 74-99 mg/dL Result Comment: The [place] Diabetes Association (ADA) provides guidance for cutoff [...] Standards of Medical Care in Diabetes 2016, [place] Diabetes Association. Diabetes Care. 2016.39(Suppl 1). LAB 3094-0(LOINC) BUN SerPl-mCnc 9 7-21 mg/ dL LAB 2160-0(LOINC) Creat SerPl-mCnc 0.60 0.58-0.96 mg/dL LAB 2951-2(LOINC) Sodium SerPl-sCnc 137 136-144 mmol/L LAB 2823-3(LOINC) Potassium SerPl-sCnc 3.7 3.7-5.1 mmol/L LAB 2075-0(LOINC) Chloride SerPl-sCnc 102 98-107 mmol/L LAB 2028-9(LOINC) CO2 SerPl-sCnc 25 22-30 mmo l/L LAB 63282-9(LOINC) Anion Gap SerPl-sCnc 10 8-15 mmol/L LAB 06523-3(LOINC) Creatinine + eGFR Pnl SerPlBld 122 >=60 [...] accurately reflect actual GFR. Performed By: #### 25054-2 # ### [facility] CLIA [id number] [address] [place] [address] [place] TSH SERPL-ACNC Collected: 12:02 PM Status: F Source: [facility] Comment: Specimen Type : BLOOD SPECIMEN Ordering Facility: [facility] Address: [address] [place] [address] TYPE CODE TESTS RESULT OUT OF RANGE REFERENCE UNITS LAB 42888-0(LOINC) TSH SerPl DL<=0.005 mIU/L-aCnc 1.090 0.270-4.200 mIU/L [...] E, et al. 2017 Guidelines of the [place] Thyroid Association for the Diagnosis and Management of Thyroid Disease during and the . Thyroid, 2017:27:3:315-389. Performed By: #### 3016-3 ## ## [facility] CLIA [id number] [address] STATES [place] TYPE + SCREEN Collected: 10/20/2024 12:02 PM Status: F Source: [facility] Order Comment: Specimen Type : BLOOD SPECIMEN Ordering Facility: [facility] Address: [address] [place] [address] TYPE CODE TESTS RESULT OUT OF RANGE REFERENCE UNITS LAB [id number] ABO A LAB [id number] RH Positive LAB [id number] ANTIBODY SCREEN Negative LAB [id number] TYPE AND SCREEN EXPIRATION 10/23/2024 22:59 Performed By: #### TSPN #### [facility] CLIA [id number] [address] [place] [address] [place] [address] [place] BACTERIA UR CULT Observed: 10/20/2024 11:47 AM Status: F Source: [facility] ORGANISM ID: 1 <10,000 CFU/ml Normal urogenital ivan Performed By: #### 630-4 ### # [facility] CLIA [id number] [address] [place] [address] OF [place] C TRACH+GC DNA SPEC QL BERNABE+PROBE Collected: 10/20/2024 11:47 AM Status: F Source: [facility] Order Comment: Specimen Type : SWAB Ordering Facility: [facility] Address: [address] [place] [address] TYPE CODE TESTS RESULT OUT OF RANGE REFERENCE UNITS LAB 51342-4(LOINC) N gonorrhoea rRNA Spec Ql BERNABE+probe Not detected Not detected LAB 26458-6(LOINC) C trach rRNA Spec Ql BERNABE+probe Not detected Not detected Performed By: #### 55310-7, TRVAMP #### [facility] CLIA [id number] [address] [place] [address] [place] TRICHOMONAS VAGINALIS NAAT Collected: 0 10/20/2024 11:47 AM Status: F Source: [facility] Comment: Specimen Type : SWAB Ordering Facility: [facility] Address: [address] [place] [address] TYPE CODE TESTS RESULT OUT OF RANGE REFERENCE UNITS LAB 95520-3(LOINC) T vaginalis DNA Spec Ql BERNABE+probe Not detected Not detected Performed By: #### [id number], TRVAMP #### [facility] CLIA [id number] [address] [place] [address] STATES OF [place] CNPN Observed: 10/20/2024 12:00 AM Status: COMPLETED Source: [facility] Telephone (OBFlurryWM) BRANDENRUBIO RATLIFF Stella ([id number]) 1990 F Date Time Provider Department 10/20/24 AUNDREA PARKS During your visit today, we recorded the following information about you: Aundrea Parks APRN.CNP 10/20/2024 11:46 AM Signed Have we received records from [facility]? through IVF. Aundrea Parks APRN.Syl Dominguez RN 10/20/2024 2:49 PM Signed Called Pt-states she signed medical records release on 10/17/24. States she will follow-up with [facility] to make sure they send them. Confirmed fax # with Pt. At this time we have not yet received records. NELSON Ferris Trisha, RN 10/24/2024 11:56 AM Signed Received records from [facility] (formerly [facility]). Linked below to review. Scan on 10/24/2024 11:13 AM by Provider, External, PAAuroraC: [facility] Records Allergies As of Date: 10/20/2024 Noted [...] Observed: 10/17/2024 3:27 PM Status: COMPLETED Source: [facility] ID: [id number] Author: AUNDREA PARKS APRN.PRESIDENTIAL SUPPORT SPECIALIST Service: ? Author Type: Nurse Practitioner Type: Progress Notes Filed: 10/20/2024 11:46 Note Text: Sales Vendor offered: Patient declines. 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 As applicable, any other physician, advance practice provider, medical student, or other health professional student that will be observing or involved in the sensitive examination for educational or training purposes was discussed with the Patient or Authorized Hub Borer. The Patient or Authorized Hub Borer has agreed to proceed with the sensitive [...] Your guide to a health and the Crane Follower. Discussed hemoglobin electrophoresis. Patient: Previously ordered Patient has penicillin allergy, plan for allergy testing. Reviewed midwifery and check weigher services that are available. 2) Screening: Hemoglobin [...] [] RSV vaccine 32 0/7 - 36 6/7 (Sept - Sep) [] declined [] COVID vaccine [...] (28-30 weeks): [] Consent [] Contraception [] Woven Blind Loom Tender [] TeamBirth handout Third trimester (36-40 weeks): [] GBS [] Presentation - [] Scheduled [] yes - Hibiclens, pre-op instructions, CBC, TANDS ordered [] no [] HANDP [] Preferences worksheet [] History of Gestational Hypertension - 10/20/2024 Comment: October 20, 2024 States BP was elevated at start of induction Aundrea Parks APRN.CNP History of Migraine - 10/20/2024 Comment: October 20, 2024 Discussed 400 mg of Magnesium per day. Consider neurology referral if persistent. Aundrea Parks APRN.PRESIDENTIAL SUPPORT SPECIALIST Nausea and Vomiting During - 10/20/2024 Comment: 10/20/24 Vitamin B6 and Unisom doses reviewed. To notify if prescription is needed. Aundrea Parks APRN.CNP Resulting From Assisted Reproductive Technology, Antepartum - 10/16/2022 Comment: October 20, 2024 IVF through [facility]. Was given 10/15 ANALILIA based on transfer. Consider echo. Aundrea Parks APRN.PRESIDENTIAL SUPPORT SPECIALIST Follow up in 4 weeks or sooner prn. Plan for NT scan between 12w0d and 13w6d gestation. Aundrea Parks APRN.PRESIDENTIAL SUPPORT SPECIALIST CNPN Observed: 10/05/2024 12:00 AM Status: COMPLETED Source: [facility] Telephone (OBGYWM) RUBIO CASTLE ([id number]) 1990 F Date Time Provider Department 10/05/24 ROSE MARIE FARMER LEONIDES During your visit today, we recorded the [...] at URGENT CARE. Assist with scheduling NOB. Rose Marie Farmer APRN.Melinda Ely RN 10/05/2024 4:11 PM Signed Patient notified [...] as without hemorrhage*12/16/2022 01/01/2023 Encounter Status:Closed by ROSE MARIE FARMER on 10/05/24 PAP TEST Collected: 8:44 AM Status: F Source: [facility] Order Comment: Specimen Type : FLUID SPECIMEN Ordering Facility: [facility] Address: [address] [place] [address] TYPE CODE TESTS RESULT OUT OF RANGE REFERENCE UNITS PATHOLOGY [id number] CASE REPORT Result Comment: Gynecologic Cytology Report Case: [id number] Authorizing Provider: Beth Quarles MD Collected: 07/19/2024 08:44 AM Ordering Location: OB/Gynecology Received: 07/19/2024 11:49 AM First Screen: Gmitro, Yemi, CT, ASCP Specimen: Pap Test, ThinPrep, Cervix PATHOLOGY [id number] ADEQUACY Satisfactory for interpretation. PATHOLOGY [id number] INTERPRETATIO N, CYTOLOGY, ELEMENTARY SCHOOL SOCIAL WORKER Result Comment: Negative for intraepithelial lesion or malignancy. OLOGY [id number] CLINICAL HISTORY, CYTOLOGY, ELEMENTARY SCHOOL SOCIAL WORKER Routine Exam PATHOLOGY [id number] LMP 07/08/2024 PATHOLOGY PAPDC PAP DISCLAIMER COMMENT The Pap Smear is a screening test for cervical cancer. False negative results occur with all screening tests, emphasizing the need for rescreening at recommended intervals, and clinical correlation. PATHOLOGY PAPIC PAP TELEGRAPH REPEATER INSTALLER COMMENT This specimen has been analyzed by the ThinPrep Imaging System, an automated imaging and review system, which assists the laboratory in evaluating cells on ThinPrep Pap tests. Following automated imaging, selected sheehan from every slide are reviewed by a cytotechnologis tAlan PATHOLOGY [facility] Result Comment: Technical co mponent, zipper joiner screening performed at [facility], [address] [place], [place] [id number] CLIA# [id number] Diagnostic interpretation performed at [facility], [address] [place] [address] CLIA# [id number] Supercharge Repair Supervisor: Harry Navarro M.D. Performed By: #### [id number] # ### [facility] CLIA [id number] [address] [place] [address] OF [place] HIGH RISK HUMAN PAPILLOMA VIRUS (HPV), PCR FOR DETECTION AND GENOTYPING Collected: 07/19/2024 8:44 AM Status: F Source: [facility] Order Comment: Specimen Type : FLUID SPECIMEN Ordering Facility: [facility] Address: [address] [place] [address] TYPE CODE TESTS RESULT OUT OF RANGE REFERENCE UNITS LAB 65437-7([facility]) HPV16 Ag Spec Ql Not detected Not detected LAB 57908-9(LOINC) HPV18 Ag Spec Ql Not detected Not detected LAB 35203-8([facility]) HPV HR 12 DNA Cvx Ql BERNABE+probe Not detected Not detected Result Comment: High Risk HP V Other Type includes HPV types 31, 33, 35, 39, 45, 51, 52, 56, 58, 59, 66 and 68. Performed By: #### HPVHRT ## ## [facility] CLIA [id number] [address] [place] [address] [place] CNOV Observed: 07/19/2024 8:20 AM Status: COMPLETED Source: [facility] Office Visit (OBLEONIDESWLaura) RUBIO CASTLE ([id number]) 1990 F Date Time Provider Department 07/19/24 8:20 AM BETH QUARLES During your visit today, we recorded the following information about you: Blood pressure Weight Height Last Period 120/64 66.5 kg 1.743 m 07/08/24 Beth Quarles MD 07/19/2024 12:16 PM Signed Sales Vendor offered: Patient declinesAlan Bergeron is a 34 [...] L1 SAB0 IAB0 Ectopic0 Multiple0 Live Births1 Paper Spooler History LMP: 07/08/2024 (Exact Date), Having periods Age at Menarche: Age at First : Age at Menopause: Paper Spooler History Comments: Sexual Activity: Yes; Male Contraception: [...] discussed with the Patient or Patient's Authorized Hub Borer. As applicable, any other physician, advance practice provider, medical student, or other health professional student that will be observing or involved in the sensitive examination for educational or training purposes was discussed with the Patient or Authorized Hub Borer. The Patient or Authorized Hub Borer has agreed to proceed with the sensitive [...] external genitalia normal, normal Bartholin's glands, urethra, [place]'s glands, no vulvar lesions, no cervical lesions, [...] for human papillomavirus (HPV) [Z11.51] Order(s):PAP TEST [[id number]] Order #: [id number]. #:[id number] Prescriptions as of 07/19/2024 - fluticasone (FLONASE) [...] of Service: WELLNESS EXAMS EST 18-39 YRS [59984] Disposition: Return in 1 year (on 07/19/2025) for Annual Exam. Follow-up and Disposition History for Encounter Date Provider Department Center 07/19/2024 [id number] QUARLES Encounter Status:Closed by BETH QUARLES on 07/19/24 PROGRESS Observed: 07/19/2024 8:11 AM Status: COMPLETED Source: [facility] ID: [id number] Author: BETH QUARLES MD Service: ? Author Type: Physician Type: Progress Notes Filed: 07/19/2024 12:16 Note Text: Sales Vendor offered: Patient declines. Rubio is a 34 [...] L1 SAB0 IAB0 Ectopic0 Multiple0 Live Births1 Paper Spooler History LMP: 07/08/2024 (Exact Date), Having periods Age at Menarche: Age at First : Age at Menopause: Paper Spooler History Comments: Sexual Activity: Yes; Male Contraception: [...] discussed with the Patient or Patient's Authorized Hub Borer. As applicable, any other physician, advance practice provider, medical student, or other health professional student that will be observing or involved in the sensitive examination for educational or training purposes was discussed with the Patient or Authorized Hub Borer. The Patient or Authorized Hub Borer has agreed to proceed with the sensitive [...] external genitalia normal, normal Bartholin's glands, urethra, [place]'s glands, no vulvar lesions, no cervical lesions, [...] Observed: 07/13/2024 10:48 AM Status: COMPLETED Source: [facility] HNO ID: [id number] Author: JULIUS HARRIS APRN.PRESIDENTIAL SUPPORT SPECIALIST Service: ? Author Type: Nurse Practitioner Type: [...] tenderness or frontal sinus tenderness. Mouth/Throat: Lips: Bussey. Mouth: Mucous membranes are moist. Pharynx: Uvula [...] V15.09, ICD10: Z91.09 See #1 Julius Harris APRN.PRESIDENTIAL SUPPORT SPECIALIST CNOV Observed: 07/13/2024 10:40 AM Status: COMPLETED Source: [facility] Office Visit (INTMWS) RUBIO CASTLE ([id number]) 1990 F Date Time Provider Department 07/13/24 10:40 AM JULIUS HARRIS INTMWS During your visit today, we recorded the following information about you: Temperature Pulse Blood pressure Weight 99.2 degrees 82/minute 112/74 67.9 kg Last Period 07/06/24 Julius Harris APRN.PRESIDENTIAL SUPPORT SPECIALIST 07/13/2024 1:10 PM Signed CC: Patient presents [...] tenderness or frontal sinus tenderness. Mouth/Throat: Lips: Bussey. Mouth: Mucous membranes are moist. Pharynx: Uvula [...] V15.09, ICD10: Z91.09 See #1 Julius Harris APRN.PRESIDENTIAL SUPPORT SPECIALIST Allergies As of Date: 07/13/2024 Noted Allergy Reaction SEASONAL ALLERGIES 02/15/2019 16 - Unknown Comments: Trees and grasses verified by skin testing Date Reviewed: 07/13/2024 Reviewed by: Julius Harris APRN.PRESIDENTIAL SUPPORT SPECIALIST - Fully Assessed Reason for Visit: Ear [...] NAME / CODE REACTION SEVERITY SOURCE 02/15/2019 [facility]/[id number] 6(SNOMED CT) SEASONAL ALLERGIES UNKNOWN [facility] ENCOUNTERS ADMIT/DISCHARGE ACCOUNT NUMBER ADMITTING ENCOUNTER CLASS LOC ATION SOURCE 05/16/2025/ 5 [id number] Ambulatory [facility] HospitalBuild ing:WMOB [facility] 05/16/2025/ 5 [id number] Ambulatory [facility] HospitalBuild ing:WMOB [facility] 05/09/2025/ 5 [id number] Ambulatory [facility] HospitalBuild ing:WMOB [facility] 05/09/2025/ 5 [id number] Ambulatory [facility] HospitalBuild ing:WMOB [facility] 05/03/2025/ 5 [id number] Ambulatory [facility] HospitalBuild ing:OGWR [facility] 05/03/2025/ 5 [id number] Ambulatory [facility] HospitalBuild ing:WMOB [facility] 04/18/2025/ 5 [id number] Ambulatory [facility] HospitalBuild ing:WMOB [facility] 04/03/2025/ 5 [id number] Ambulatory [facility] HospitalBuild ing:WMOB [facility] 04/03/2025/ 5 [id number] Ambulatory [facility] HospitalBuild ing:OGWR [facility] 03/20/2025/ 5 [id number] Ambulatory [facility] HospitalBuild ing:WMOB [facility] 03/06/2025/ 5 [id number] Ambulatory [facility] HospitalBuild ing:WOL2 [facility] 03/06/2025/ 5 [id number] Ambulatory [facility] HospitalBuild ing:WMOB [facility] 02/06/2025/ 5 [id number] Ambulatory [facility] HospitalBuild ing:WMOB [facility] 01/31/2025/ 5 [id number] [facility] 5 [id number] [facility] 01/10/2025/ 5 [id number] Ambulatory [facility] HospitalBuild ing:OGWR [facility] 01/10/2025/ 5 [id number] Ambulatory [facility] HospitalBuild ing:WMOB [facility] 12/23/2024/ 5 [id number] Ambulatory [facility] HospitalBuild ing:WMOB [facility] 11/18/2024/ 5 [id number] Ambulatory [facility] HospitalBuild ing:WMOB [facility] 11/18/2024/ 5 [id number] Ambulatory [facility] HospitalBuild ing:OGWR [facility] 10/20/2024/ 5 [id number] Ambulatory [facility] HospitalBuild ing:WOL2 [facility] 10/20/2024/ 5 [id number] Ambulatory [facility] HospitalBuild ing:WMOB [facility] 07/19/2024/ 4 [id number] Ambulatory [facility] HospitalBuild ing:WMOB [facility] 07/13/2024/ 4 [id number] Ambulatory [facility] HospitalBuild ing:WOIA [facility] PAYERS ENCOUNTER GUARANTOR PAYER SUBSCRIBER SOURCE 05/16/2025 Primary Insurance:[employer] ACCESS PPOPolicy Number: [id number] Date:8966-59-33Xyod Name:Marc DEEOB: [id number] [place], [place] [address] [place] [address] 05/16/2025 Primary Insurance:BLUE ACCESS PPOPolicy Number: [id number] Date:8770-15-26Amko Name:Marc NARANJOMANDOB: [id number] [address] 05/09/2025 Primary Insurance:BLUE ACCESS PPOPolicy Number: [id number] Date:1645-87-47Ukik Name:Marc NARANJOMANDOB: [id number] [address] 05/09/2025 Primary Insurance:BLUE ACCESS PPOPolicy Number: [id number] Date:6966-00-33Pqaz Name:Marc BERGERON Stella MARCELLAMANDOB: [id number] [address] 05/03/2025 Primary Insurance:BLUE ACCESS PPOPolicy Number: [id number] Date:0398-34-56Mtni Name:Marc BERGERON Stella MARCELLAMANDOB: [id number] [address] 05/03/2025 Primary Insurance:BLUE ACCESS PPOPolicy Number: [id number] Date:8620-18-06Epbt Name:Marc BERGERON Stella MARCELLAMANDOB: [id number] [address] 04/18/2025 Primary Insurance:BLUE ACCESS PPOPolicy Number: [id number] Date:0282-29-56Zjpm Name:Marc BERGERON Stella BILLMANDOB: [id number] [address] 04/03/2025 Primary Insurance:BLUE ACCESS PPOPolicy Number: [id number] Date:6135-97-17Bbiq Name:Marc BERGERON Stella MARCELLAMANDOB: [id number] [address] 04/03/2025 Primary Insurance:BLUE ACCESS PPOPolicy Number: [id number] Date:4052-39-46Yqom Name:Marc Douglas BILLMANDOB: [id number] [place], [place] [address] [place] [address] 03/20/2025 Primary Insurance:BLUE ACCESS PPOPolicy Number: [id number] Date:1339-75-66Dkvr Name:Marc Douglas BILLMANDOB: [id number] [address] 03/06/2025 Primary Insurance:BLUE ACCESS PPOPolicy Number: [id number] Date:9577-61-76Drxt Name:Marc NARANJOMANDOB: [id number] [address] 03/06/2025 Primary Insurance:BLUE ACCESS PPOPolicy Number: [id number] Date:9327-52-58Xclf Name:Marc BERGERON Stella MARCELLAMANDOB: [id number] [address] 02/06/2025 Primary Insurance:BLUE ACCESS PPOPolicy Number: [id number] Date:0804-59-98Hpjt Name:Marc BERGERON Stella MARCELLAMANDOB: [id number] [address] 01/31/2025 Primary Insurance:BLUE ACCESS PPOPolicy Number: [id number] Date:3599-96-16Qkxx Name:Marc BERGERON tSella BILLMANDOB: [id number] [address] 01/31/2025 Primary Insurance:BLUE ACCESS PPOPolicy Number: [id number] Date:4876-45-18Duck Name:Marc BERGERON Stella MARCELLAMANDOB: [id number] [address] 01/10/2025 Primary Insurance:BLUE ACCESS PPOPolicy Number: [id number] Date:9883-45-64Clbb Name:Marc BERGERON Stella BILLMANDOB: [id number] [address] 01/10/2025 Primary Insurance:BLUE ACCESS PPOPolicy Number: [id number] Date:0538-67-40Jbda Name:Marc NARANJOMANDOB: [id number] [address] 12/23/2024 Primary Insurance:BLUE ACCESS PPOPolicy Number: [id number] Date:1230-61-67Tvac Name:Marc Douglas BILLMANDOB: [id number] 11/18/2024 Primary Insurance:BLUE ACCESS PPOPolicy Number: [id number] Date:9529-59-71Ylmk Name:Marc Douglas BILLMANDOB: [id number] [address] 11/18/2024 Primary Insurance:BLUE ACCESS PPOPolicy Number: [id number] Date:6379-43-41Giih Name:Marc NARANJOMANDOB: [id number] [address] 10/20/2024 Primary Insurance:BLUE ACCESS PPOPolicy Number: [id number] Date:6079-61-11Fazo Name:Marc Douglas BILLMANDOB: [id number] [address] 10/20/2024 Primary Insurance:BLUE ACCESS PPOPolicy Number: [id number] Date:5974-13-61Dgyu Name:Marc Douglas BILLMANDOB: [id number] [address] 07/19/2024 Primary Insurance:BLUE ACCESS PPOPolicy Number: [id number] Date:3949-46-86Fvzl Name:Marc Douglas BILLMANDOB: [id number] [address] 07/13/2024 Primary Insurance:BLUE ACCESS PPOPolicy Number: [id number] Date:0780-43-25Acrt Name:Marc DEEOB: [id number] [place] [address] [facility]
[2025-05-16] MEDS: Lactated Ringers 1,000 ML 50 ML IV (13:55)
[2025-05-16] MEDS: Oxytocin 15 Units/NS 250ml 15 UNITS/250 ML IV.SOLN 2 UNITS IV (14:08)
[2025-05-16 14:38] LABS: AST(SGOT) 23 U/L (<=31); Uric Acid 4.7 mg/dL (2.6-6.0)
[2025-05-16 14:39] LABS: Creatinine, Urine (random) 110.00 mg/dL (28.00-217.00); Protein, Urine (Random) 32.0 mg/dL (0.0-12.0); Protein:Creat Ratio 291 mg/g CRE (0-200)
[2025-05-16 15:25] LABS: Alanine Aminotransfer ALT/SGPT 12 U/L (<=34); Estimated Creatinine Clearance 123.59 ml/min (50-250); Syphilis Antibodies Nonreactive (Nonreactive)
[2025-05-16 15:40] LABS: Hematocrit 37.4 % (37-47); Hemoglobin 13.2 g/dL (12.0-15.0); Immature Granulocytes Count 0.180 X10^3/uL (0.0-0.0); Mean Corp Hgb Conc 35.3 g/dL (32-36); Mean Corpuscular Volume 97.1 fL (81-99); Mean Platelet Vol. 10.2 fl (6.2-12.0); NRBC Flagged by Analyzer 0 % (0-5); Platelet Count 173 K/mm3 (150-450); RBC Distribution Width CV 12.9 % (11.6-14.6); RBC Distribution Width SD 45.0 fl (35.1-43.9); Red Blood Count 3.85 M/mm3 (4.2-5.4); White Blood Count 13.9 K/mm3 (4.4-11.0)
--- NOTE | 2025-05-16 17:39 | PCM.HP.OB ---
HPI - General General Date of Admission: 05/16/25 Date of Service: 05/16/25 HPI Narrative SHAHRIAR OTERO, is a 35 F who presents induction. Maternal Data Information ANALILIA Calculator Estimated Delivery Date Method Current WG Current Estimate 05/31/25 Manual 37w 6d [facility] Medical History conceived through in vitro fertilization Infertility Home Medications ?Medication ?Instructions ?Recorded ?Last Taken ?Type vit no.95-ferrous 1 tab PO DAILY 05/21/23 05/16/25 History fumarate 28 mg-folic acid 800 mcg tablet () aspirin 81 mg capsule 81 mg PO DAILY \ 05/16/25 05/15/25 History Allergy/AdvReac Type Severity Reaction Status Date / Time No Known Allergies Allergy Verified 05/16/25 13:48 Surgical History History of surgery Social History Smoking Status: Never smoker History Elective abortions Hx Para 1 Spontaneous abortions Hx # Term Pregnancies Ectopic pregnancies Hx # Pregnancies Multiple births # of living children NST FHR Rate Baby A Baseline: 150 Variability:: Moderate Accelerations:: 15 x 15 Decelerations:: Variable Uterine Activity:: Irregular Vital Signs Vital Signs Vital Signs: 05/16/25 13:44 05/16/25 13:44 05/16/25 13:44 Temperature Temperature Source Temporal Pulse Rate 113 H Respiratory Rate Blood Pressure 139/94 H BP Systolic 139 BP Diastolic 94 Pulse Ox 05/16/25 13:44 05/16/25 13:44 05/16/25 14:33 Temperature 99.0 F Temperature Source Pulse Rate 112 H Respiratory Rate 16 Blood Pressure BP Systolic BP Diastolic Pulse Ox 05/16/25 14:33 05/16/25 14:34 05/16/25 14:34 Temperature Temperature Source Pulse Rate 113 H Respiratory Rate Blood Pressure BP Systolic BP Diastolic Pulse Ox 93 93 05/16/25 14:58 05/16/25 14:58 05/16/25 14:58 Temperature Temperature Source Pulse Rate 108 H Respiratory Rate 16 Blood Pressure 123/91 H BP Systolic 123 BP Diastolic 91 Pulse Ox 05/16/25 16:10 05/16/25 16:10 Temperature Temperature Source Pulse Rate 110 H Respiratory Rate Blood Pressure 134/88 H BP Systolic 134 BP Diastolic 88 Pulse Ox Weight Weight: 195 lb 5.273 oz Body Mass Index (BMI) 30.6 Physical Exam Const alert and oriented x3 GI soft to palpation, non-tender, non-distended and no masses Inspection: gravid external exam normal Narrative: cvx - 3/70/-2 Labs Labs Labs: Blood Type A POSITIVE Antibody Screen NEGATIVE Hct, (37-47) 37.4 % Hgb, (12.0-15.0) 13.2 g/dL Syphilis Total Ab, (Nonreactive) Nonreactive Assessment & Plan (1) LGA (large for gestational age) fetus: COMMENT: @ 37&6 (2) Gestational hypertension: QUALIFIERS: Trimester: third trimester Qualified Code(s): O13.3 - Gestational [-induced] hypertension without significant proteinuria, third trimester (3) conceived through in vitro fertilization: QUALIFIERS: Trimester: third trimester Qualified Code(s): O09.813 - Supervision of resulting from assisted reproductive technology, third trimester PLAN: Plan Admit to L&D Induction - on pitocin Gestational hypertension - PreE labs normal GBS negative EFW - less than 4500g and patient qith adequate pelvis Routine care
[2025-05-16] MEDS: Lactated Ringers 1,000 ML 200 ML IV ×2 (17:47→22:19)
[2025-05-16] MEDS: fentaNYL-bupivacaine (epidural) 100 ML BAG EPIDURAL ×2 (18:27→22:57)
--- NOTE | 2025-05-16 20:37 | PN.OBGYN_ITS ---
Subjective Subjective Patient comfortable wit epidural Objective Data Objective Data Vital Signs: Vital Signs Temp Pulse Resp BP Pulse Ox 98.6 F 114 H 14 123/78 H 95 05/16/25 19:16 05/16/25 20:11 05/16/25 19:16 05/16/25 20:11 05/16/25 19:20 Weight: 195 lb 5.273 oz Body Mass Index (BMI) 30.6 Intake & Output: Intake and Output for Last 24 Hours 05/14/25 05/15/25 05/16/25 23:59 23:59 23:59 Intake Total 1000.47 / 1000.47 Balance 1000.47 / 1000.47 Lab / Micro Data 05/16/25 15:10 05/16/25 13:55 Labs: Laboratory Results - last 24 hr 05/16/25 13:55: WBC Cancelled, Corrected WBC Cancelled, RBC Cancelled, Hgb Cancelled, Hct Cancelled, MCV Cancelled, MCH Cancelled, MCHC Cancelled, RDW Std Deviation Cancelled, RDW Coeff of Geremias Cancelled, Plt Count Cancelled, MPV Cancelled, Immature Gran % (Auto) Cancelled, Neut % (Auto) Cancelled, Lymph % (Auto) Cancelled, [place] % (Auto) Cancelled, Eos % (Auto) Cancelled, Baso % (Auto) Cancelled, Absolute Neuts (auto) Cancelled, Absolute Lymphs (auto) Cancelled, Total Counted Cancelled, Neutrophils % (Manual) Cancelled, Band Neutrophils % Cancelled, Lymphocytes % (Manual) Cancelled, Monocytes % (Manual) Cancelled, Eosinophils % (Manual) Cancelled, Basophils % (Manual) Cancelled, Metamyelocytes % Cancelled, Myelocytes % Cancelled, Promyelocytes % Cancelled, Blast Cells % Cancelled, Plasma Cell % (Manual) Cancelled, Other Cells % Cancelled, Nucleated RBC % Cancelled, Nucleated RBCs/100 WBC Cancelled, Differential Comment Cancelled, Diff Path Review Cancelled, Hypersegmented Neuts Cancelled, Atypical Lymphocytes Cancelled, Reactive Lymphocytes Cancelled, Smudge Cells Cancelled, Toxic Granulation Cancelled, Toxic Vacuolation Cancelled, Dohle Bodies Cancelled, Sel[place] Rods Cancelled, Platelet Estimate Cancelled, Plt Morphology Comment Cancelled, RBC Morphology Cancelled 05/16/25 13:55: RBC Morphology Cancelled, Polychromasia Cancelled, Hypochromasia Cancelled, Basophilic Stippling Cancelled, Anisocytosis Cancelled, Microcytosis Cancelled, Macrocytosis Cancelled, Spherocytes Cancelled, Sickle Cells Cancelled, Target Cells Cancelled, Tear Drop Cells Cancelled, Ovalocytes Cancelled, Stomatocytes Cancelled, [place] Bodies Cancelled, [place] Cells Cancelled, Bite Cells Cancelled, Crenated Cell Cancelled, Acanthocytes (Spur) Cancelled, Rouleaux Cancelled, Schistocytes Cancelled, Creatinine 0.74, Estim Creat Clear Calc 123.59, Est GFR (MDRD) Non-Af 109, Uric Acid 4.7, AST 23, ALT 12, U Random Total Protein 32.0 H, Urine Creatinine 110.00, Protein/Creatinin Ratio 291 H, Syphilis Total Ab Nonreactive, Blood Type A POSITIVE, Antibody Screen NEGATIVE 05/16/25 15:10: WBC 13.9 H, RBC 3.85 L, Hgb 13.2, Hct 37.4, MCV 97.1, MCH 34.3 H , MCHC 35.3, RDW Std Deviation 45.0 H, RDW Coeff of Geremias 12.9, Plt Count 173, MPV 10.2, Immature Gran % (Auto) 1.300 H, Neut % (Auto) 75.2 H, Lymph % (Auto) 17.5 L, [place] % (Auto) 5.4, Eos % (Auto) 0.0, Baso % (Auto) 0.6, Absolute Neuts (auto) 10.5 H, Absolute Lymphs (auto) 2.43, Nucleated RBC % 0 Physical Exam Narrative: cvx - 4/70/-2, AROM clear fluid, IUPC placed NST FHR Rate Baby A Baseline: 135 Variability:: Moderate Accelerations:: 15 x 15 Decelerations:: None Uterine Activity:: Q 3-4 minutes Assessment & Plan (1) LGA (large for gestational age) fetus: COMMENT: @ 37&6 (2) Gestational hypertension: QUALIFIERS: Trimester: third trimester Qualified Code(s): O13.3 - Gestational [-induced] hypertension without significant proteinuria, third trimester PLAN: Plan Continue pitocin induction
[2025-05-16] MEDS: LACTATED RINGERS 500 ML 999 ML IV (22:00)
[2025-05-17] VITALS (55 sets, daily range): BP systolic 94–140; BP diastolic 56–104; PULSE 91–133; RESP 14–18; TEMP 35.9–37.9; O2SAT 85–100
[2025-05-17] MEDS: Lactated Ringers 1,000 ML 200 ML IV (03:37)
[2025-05-17] MEDS: Oxytocin 15 Units/NS 250ml 15 UNITS/250 ML IV.SOLN 83 UNITS IV (04:21)
--- NOTE | 2025-05-17 04:30 | OB.VAGDELI_ITS ---
Maternal Data Information ANALILIA Calculator Estimated Delivery Date Method Current WG Current Estimate 05/31/25 Manual 38w 0d Vaginal Delivery Maternal Presentation Maternal Presentation: Medically Indicated Induction Type of Induction: Pitocin and Amniotomy Vaginal Delivery Information Procedure Performed: Spontaneous Vaginal Delivery Surgeon/Practitioner: Trevor Montoya Date of Procedure: 05/17/25 Pre-Procedure Diagnosis: Gestational hypertension Post-Procedure Diagnosis: Same Type of anesthesia: Epidural Estimated Blood Loss: 400ml Findings Description of procedure: Called to room when patient C/C/+1. Baby delivered spontaneously & was placed on maternal abdomen. 3VC clamped and cut in delayed fashion. Placenta delivered with gentle traction and good uterine tone obtained. 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
[2025-05-17] MEDS: 0.9% Saline Lock 10 ML Syringe IV (07:44)
--- NOTE | 2025-05-17 08:19 | PCM.PN.CNM ---
Subjective Subjective Patient seen at bedside. Denies any pain. Ambulating and voiding without difficulty. Lochia is mild. without difficulty. Denies headache, dizziness, SOB or CP. Sitting up eating breakfast tray. Objective Data Objective Data Vital Signs: Vital Signs Temp Pulse Resp BP Pulse Ox O2 Del Method 98.5 F 105 H 18 125/81 H 95 Room Air 05/17/25 07:48 05/17/25 07:48 05/17/25 07:48 05/17/25 07:48 05/17/25 07:48 05/17/25 07:48 Oxygen Delivery Method Room Air Weight: 195 lb 5.273 oz Body Mass Index (BMI) 30.6 Intake & Output: Intake and Output for Last 24 Hours 05/15/25 05/16/25 05/17/25 23:59 23:59 23:59 Intake Total 2450.04 / 2450.04 1554.13 / 1554.13 Output Total 400 / 400 950 / 950 Balance 2050.04 / 2050.04 604.13 / 604.13 Lab / Micro Data Attestation: I reviewed the patient's lab results. 05/16/25 15:10 05/16/25 13:55 Labs: Laboratory Results - last 24 hr 05/16/25 13:55: WBC Cancelled, Corrected WBC Cancelled, RBC Cancelled, Hgb Cancelled, Hct Cancelled, MCV Cancelled, MCH Cancelled, MCHC Cancelled, RDW Std Deviation Cancelled, RDW Coeff of Geremias Cancelled, Plt Count Cancelled, MPV Cancelled, Immature Gran % (Auto) Cancelled, Neut % (Auto) Cancelled, Lymph % (Auto) Cancelled, [place] % (Auto) Cancelled, Eos % (Auto) Cancelled, Baso % (Auto) Cancelled, Absolute Neuts (auto) Cancelled, Absolute Lymphs (auto) Cancelled, Total Counted Cancelled, Neutrophils % (Manual) Cancelled, Band Neutrophils % Cancelled, Lymphocytes % (Manual) Cancelled, Monocytes % (Manual) Cancelled, Eosinophils % (Manual) Cancelled, Basophils % (Manual) Cancelled, Metamyelocytes % Cancelled, Myelocytes % Cancelled, Promyelocytes % Cancelled, Blast Cells % Cancelled, Plasma Cell % (Manual) Cancelled, Other Cells % Cancelled, Nucleated RBC % Cancelled, Nucleated RBCs/100 WBC Cancelled, Differential Comment Cancelled, Diff Path Review Cancelled, Hypersegmented Neuts Cancelled, Atypical Lymphocytes Cancelled, Reactive Lymphocytes Cancelled, Smudge Cells Cancelled, Toxic Granulation Cancelled, Toxic Vacuolation Cancelled, Dohle Bodies Cancelled, Selam Rods Cancelled, Platelet Estimate Cancelled, Plt Morphology Comment Cancelled, RBC Morphology Cancelled 05/16/25 13:55: RBC Morphology Cancelled, Polychromasia Cancelled, Hypochromasia Cancelled, Basophilic Stippling Cancelled, Anisocytosis Cancelled, Microcytosis Cancelled, Macrocytosis Cancelled, Spherocytes Cancelled, Sickle Cells Cancelled, Target Cells Cancelled, Tear Drop Cells Cancelled, Ovalocytes Cancelled, Stomatocytes Cancelled, [place] Bodies Cancelled, [place] Cells Cancelled, Bite Cells Cancelled, Crenated Cell Cancelled, Acanthocytes (Spur) Cancelled, Rouleaux Cancelled, Schistocytes Cancelled, Creatinine 0.74, Estim Creat Clear Calc 123.59, Est GFR (MDRD) Non-Af 109, Uric Acid 4.7, AST 23, ALT 12, U Random Total Protein 32.0 H, Urine Creatinine 110.00, Protein/Creatinin Ratio 291 H, Syphilis Total Ab Nonreactive, Blood Type A POSITIVE, Antibody Screen NEGATIVE 05/16/25 15:10: WBC 13.9 H, RBC 3.85 L, Hgb 13.2, Hct 37.4, MCV 97.1, MCH 34.3 H, MCHC 35.3, RDW Std Deviation 45.0 H, RDW Coeff of Geremias 12.9, Plt Count 173, MPV 10.2, Immature Gran % (Auto) 1.300 H, Neut % (Auto) 75.2 H, Lymph % (Auto) 17.5 L, [place] % (Auto) 5.4, Eos % (Auto) 0.0, Baso % (Auto) 0.6, Absolute Neuts (auto) 10.5 H, Absolute Lymphs (auto) 2.43, Nucleated RBC % 0 ROS Eyes Eyes: Denies blurry vision, change in vision or spots in vision ENT HEENT: Denies dizziness or headache(s) Cardiovascular Cardiovascular: Denies abdominal pain, chest pain or dyspnea Respiratory/Chest Respiratory/Chest: Denies cough, dyspnea, shortness of breath at rest or shortness of breath with exertion Gastrointestinal Gastrointestinal: Denies abdominal pain, diarrhea or vomiting Genitourinary Genitourinary: Denies change in urinary stream, difficulty urinating or dysuria Musculoskeletal Musculoskeletal: Reports none Integumentary Integumentary: Denies rash Neurologic Neurologic: Denies dizziness, headache(s), memory loss or weakness Physical Exam Const alert and no apparent distress General Appearance: cooperative and comfortable Exam Limitations: no limitations HEENT normocephalic Eyes General Eye: normal appearance of both eyes Neck full ROM General: normal visual inspection Chest Chest: symmetrical chest wall rise Resp normal respiratory effort and normal air movement Effort and Inspection: symmetric chest movement Auscultation: clear to auscultation bilaterally Cardio regular rate and regular rhythm GI normal to inspection, nondistended, normoactive bowel sounds Back/Spine normal ROM Extremity full ROM and no calf tenderness General Extremity: normal exam except as noted Skin no rashes or lesions noted Neuro oriented x3 Speech: speech normal Psych mental status grossly normal Thought Process: normal thought process Assessment & Plan (1) (spontaneous vaginal delivery): (2) Care and examination of lactating mother: (3) Gestational hypertension: QUALIFIERS: Trimester: third trimester Qualified Code(s): O13.3 - Gestational [-induced] hypertension without significant proteinuria, third trimester PLAN: Plan PPD 1 - intact BP stable- no severe ranges Tachycardic at times Bleeding is stable- Repeat CVC at 12pm
[2025-05-17 12:22] LABS: Hematocrit 32.2 % (37-47); Hemoglobin 11.5 g/dL (12.0-15.0); Mean Corp Hgb Conc 35.7 g/dL (32-36); Mean Corpuscular Volume 96.4 fL (81-99); Mean Platelet Vol. 10.0 fl (6.2-12.0); Platelet Count 153 K/mm3 (150-450); RBC Distribution Width CV 13.0 % (11.6-14.6); RBC Distribution Width SD 45.8 fl (35.1-43.9); Red Blood Count 3.34 M/mm3 (4.2-5.4); White Blood Count 16.6 K/mm3 (4.4-11.0)
[2025-05-18] VITALS (7 sets, daily range): BP systolic 126–145; BP diastolic 89–107; PULSE 85–98; RESP 16–18; TEMP 36.4–36.8; O2SAT 96–100
--- NOTE | 2025-05-18 08:15 | PCM.PN.OB ---
Subjective Subjective Doing well. Ambulating and voiding without difficulty. Mild lochia. Breast feeding. Mildly elevated BP requesting to start labetalol . Previously on Labetalol 200 mg BID. Didn't feel well at that dose Objective Data Objective Data Vital Signs: Vital Signs Temp Pulse Resp BP Pulse Ox O2 Del Method 97.8 F 85 16 126/93 H 98 Room Air 05/18/25 04:00 05/18/25 04:00 05/18/25 04:00 05/18/25 04:00 05/18/25 04:00 05/18/25 04:00 Oxygen Delivery Method Room Air Weight: 88.6 kg Body Mass Index (BMI) 30.6 Intake & Output: Intake and Output for Last 24 Hours 05/16/25 05/17/25 05/18/25 23:59 23:59 23:59 Intake Total 2450.04 / 2450.04 1554.13 / 1554.13 Output Total 400 / 400 1050 / 1050 Balance 2050.04 / 2050.04 504.13 / 504.13 Lab / Micro Data 05/17/25 12:00 05/16/25 13:55 Labs: Laboratory Results - last 24 hr 05/17/25 12:00: WBC 16.6 H, RBC 3.34 L, Hgb 11.5 L, Hct 32.2 L, MCV 96.4, MCH 34.4 H, MCHC 35.7, RDW Std Deviation 45.8 H, RDW Coeff of Geremias 13.0, Plt Count 153, MPV 10.0 ROS Constitutional Constitutional: Denies headache(s) Cardiovascular Cardiovascular: Denies chest pain or dyspnea Gastrointestinal Gastrointestinal: Denies nausea or vomiting Genitourinary Genitourinary: Denies dysuria Physical Exam Const alert and no apparent distress General Appearance: cooperative and comfortable Eyes PERRL and EOMs intact bilaterally Resp normal respiratory effort GI soft to palpation and non-tender Narrative: Fundus firm, below umbilicus. Uterus Palpation: uterus fundus firm ( below umbilicus) Extremity normal to inspection and full ROM Neuro oriented x3 and CN's II-XII intact bilaterally Psych mental status grossly normal Assessment & Plan (1) Gestational hypertension: QUALIFIERS: Trimester: third trimester Qualified Code(s): O13.3 - Gestational [-induced] hypertension without significant proteinuria, third trimester PLAN: labetalol (2) (spontaneous vaginal delivery): PLAN: Plan Started HTN meds
[2025-05-18] MEDS: 0.9% Saline Lock 10 ML Syringe IV ×2 (09:11→22:05)
[2025-05-18] MEDS: hydrOXYzine PAM 25 MG Capsule PO (18:17)
[2025-05-19 02:00] VITALS: BP 123/85; PULSE 89; RESP 17; TEMP 36.7; O2SAT 98
[2025-05-19 05:26] VITALS: BP 125/92; PULSE 89
--- NOTE | 2025-05-19 06:52 | PCM.PN.OB ---
Subjective Subjective Doing well. Ambulating and voiding without difficulty. Mild lochia. Breast feeding. No Headache. Feels good today after getting some sleep. Feels good on labetalol 200 mg. Discussed BP on Thursday. WIll continue to check BP at home. Objective Data Objective Data Vital Signs: Vital Signs Temp Pulse Resp BP Pulse Ox O2 Del Method 98.1 F 89 17 125/92 H 98 Room Air 05/19/25 02:00 05/19/25 05:26 05/19/25 02:00 05/19/25 05:26 05/19/25 02:00 05/19/25 02:00 Oxygen Delivery Method Room Air Weight: 88.6 kg Body Mass Index (BMI) 30.6 Intake & Output: Intake and Output for Last 24 Hours 05/17/25 05/18/25 05/19/25 23:59 23:59 23:59 Intake Total 1554.13 / 1554.13 Output Total 1050 / 1050 Balance 504.13 / 504.13 Lab / Micro Data 05/17/25 12:00 05/16/25 13:55 ROS Constitutional Constitutional: Denies headache(s) Cardiovascular Cardiovascular: Denies chest pain or dyspnea Gastrointestinal Gastrointestinal: Denies nausea or vomiting Genitourinary Genitourinary: Denies dysuria Physical Exam Const alert, oriented x3 and no apparent distress General Appearance: cooperative and comfortable Eyes PERRL and EOMs intact bilaterally Resp normal respiratory effort GI soft to palpation and non-tender Uterus Palpation: uterus fundus firm ( below umbilicus) Extremity normal to inspection and full ROM Neuro oriented x3 and CN's II-XII intact bilaterally Psych mental status grossly normal Assessment & Plan (1) (spontaneous vaginal delivery): (2) Gestational hypertension: QUALIFIERS: Trimester: third trimester Qualified Code(s): O13.3 - Gestational [-induced] hypertension without significant proteinuria, third trimester PLAN: Plan Discharge home. F/u on Thursday
--- NOTE | 2025-05-19 06:55 | PCM.DC.SUM ---
Providers Date of Admission: 05/16/25 Date of Discharge: 05/19/25 Primary Care Physician: Dr. Theresa Ayon MD Reason For Visit: VAGINAL DELIVERY Diagnosis Discharge Diagnosis (1) (spontaneous vaginal delivery): Status: Acute Code(s): O80 - Encounter for full-term uncomplicated delivery (2) Gestational hypertension: Status: Acute Code(s): O13.9 - Gestational [-induced] hypertension without significant proteinuria, unspecified trimester Qualifiers: Trimester: third trimester Qualified Code(s): O13.3 - Gestational [-induced] hypertension without significant proteinuria, third trimester Plan Discharge home. F/u on Thursday Medications at Discharge Home Medications vit no.95-ferrous fumarate 28 mg-folic acid 800 mcg tablet () 1 tab PO DAILY 05/21/23 labetalol 200 mg tablet 200 mg PO BID #60 tabs 05/19/25 Hospital Course Operations None Procedures None Summary of Care Provided Minutes Spent on Discharge: 20 Hospital Course: GHTN. without complication. Started on labetalol Physical Exam Const alert and no apparent distress Narrative: Fundus firm, below umbilicus. Weight / BMI Weight Weight: 88.6 kg Body Mass Index (BMI) 30.6 ABG / Lab / Microbiology Data 05/17/25 12:00 05/16/25 13:55 D/C Instructions May resume sexual activity in: 6 weeks DC O2, CPAP, BIPAP Needs Home O2 Discharge instructions: No Please Follow Up With: Stephanie West MD When: Follow up with our office in 1-2 and 6 weeks or as needed. [phone] Meaningful Use Info Meaningful Use Meaningful Use Diagnoses (Choose all that apply): None applicable Discharge Plan Admission Admit Date/Time: 05/16/25 13:05 Primary Reason for Your Visit: labor Attending Provider: Trevor Montoya Primary Care Provider: Theresa Ayon Discharge Orders/Prescriptions Prescriptions: New labetalol 200 mg Tablet 200 mg PO BID Qty: 60 0RF Continued PNV no.95-ferrous fumarate-FA [] 28 mg iron- 800 mcg tablet 1 tab PO DAILY Discontinued aspirin 81 mg capsule 81 mg PO DAILY Referrals / Follow Up: Theresa Ayon MD [Primary Care Provider, Internal Medicine] Disposition Disposition (needs filled in before D/C Order can be placed): Home, Self Care
[2025-05-19 08:20] VITALS: BP 119/94; PULSE 108; RESP 16; TEMP 36.9; O2SAT 100
== END 2025-05-19 10:10 | disposition home or self-care (01) | DRG 807 ==
PROVIDERS: Admitting Provider Obstetrics & Gynecology; PCP Internal Medicine; Referring Provider Obstetrics & Gynecology; Visit Provider Obstetrics & Gynecology
DX: O13.4 Gestational [pregnancy-induced] hypertension without significant proteinuria, complicating childbirth (principal); Z37.0 Single live birth; O36.63X0 Maternal care for excessive fetal growth, third trimester, not applicable or unspecified; Z3A.37 37 weeks gestation of pregnancy
CPT/HCPCS: 82565; 82570; 84156; 84450; 84460; 84550; 85025; 85027; 86780; 86850; 86900; 86901; 99221; A4216; G0378; J2405